=== PATIENT | female | born 1960 | race Caucasian/White ===

== ENCOUNTER 2019-03-29 15:09 | Inpatient (IN) | payer OTHER ==
[2019-03-29] MEDS ORDERED: Furosemide 40 MG/4 ML VIAL ONE (15:21)
[2019-03-29] MEDS ORDERED: Diltiazem HCl 125 MG, Admixture Fee 1 EACH in Sodium Chloride 0.9% 100 ML IVPB SCH (17:15)
[2019-03-29] MEDS ORDERED: Acetaminophen 650 MG Suppository PR PRN (17:26)
[2019-03-29] MEDS ORDERED: Acetaminophen 325 MG TAB PO PRN (17:26)
[2019-03-29 18:34] VITALS: BMI 40.0
[2019-03-29] MEDS: Nicotine 14 MG PATCH TD SCH (18:50)
[2019-03-29 19:26] LABS: Troponin I 0.031 ng/mL (< 0.028)
[2019-03-29] MEDS ORDERED: Diltiazem 125 MG in Sodium Chloride 0.9% 100 ML IVPB SCH (19:30)
[2019-03-29] MEDS ORDERED: Potassium Chloride 20 MEQ TAB PO SCH (19:45)
--- NOTE | 2019-03-29 20:10 | HP ---
PRIMARY CARE PROVIDER: Dr. Christopher Posey. CHIEF COMPLAINT: Shortness of breath. HISTORY OF PRESENT ILLNESS: Ms. Sherman is a pleasant 59-year-old lady, who was seen at [facility] on March 29, 2019, following transfer from emergency room at [place]. She reports that she has had on and off shortness of breath over the last few months. It has been worse over the last 2 weeks. She has been unable to sleep for the last two or three nights. She reports orthopnea and paroxysmal nocturnal dyspnea. She also reports leg swelling. She reports that she initially received treatment for COPD. Recently, it was found that she had an elevated BNP. She was therefore started on furosemide, but she has not taken many doses of furosemide. She denies any chest pain. She denies any palpitations. She reports that she knows her pulse rate is high because she can feel throbbing in her ears. She presented to the emergency room because of ongoing symptoms of shortness of breath. REVIEW OF SYSTEMS: All systems were reviewed and found to be negative. PAST MEDICAL HISTORY: Gastroesophageal reflux disease, hypertension, osteoarthritis, congestive heart failure, COPD, asthma, coronary artery disease. PAST SURGICAL HISTORY: Coronary artery bypass graft x3, left femoral surgery. PSYCHIATRIC HISTORY: Depression. SOCIAL HISTORY: She drinks one erika during the week days. She smokes 3 to 4 cigarettes a day. She lives alone. She does not use a walker or cane. She denies any recreational drug use. FAMILY HISTORY: No family history of premature coronary artery disease. ALLERGIES: NO KNOWN DRUG ALLERGIES. CURRENT MEDICATIONS: 1. Aspirin 81 mg daily. 2. Celebrex 50 mg daily. 3. Furosemide 20 mg daily. 4. Lotrel 5/40 mg daily. 5. Prevacid 15 mg daily. 6. Toprol-XL 50 mg daily. 7. Venlafaxine 150 mg daily. 8. Symbicort one puff b.i.d. PHYSICAL EXAMINATION: GENERAL: Ms. Sherman is awake and alert, not in acute distress. VITAL SIGNS: Blood pressure is 153/108, pulse 92, respiratory rate 20, and oxygen saturation 96% on 2 L of oxygen. She is afebrile. She is morbidly obese, with a BMI of 40.1. EYES: No scleral icterus, no conjunctival pallor. ENT: Moist mucosal membranes. No oropharyngeal erythema or exudates. NECK: Supple, nontender, trachea is midline. She has jugular venous distention. RESPIRATORY: Accessory muscles of breathing are mildly active. Chest wall movements are symmetric bilaterally. LUNG: Shows a few bibasilar crackles. CARDIOVASCULAR: S1 and S2 are heard, irregular. Peripheral pulses palpable. NEUROLOGIC: Cranial nerves 2 through 12 are intact. MUSCULOSKELETAL: Power is 5/5 in all 4 extremities. She has bilateral lower extremity edema. SKIN: No rashes or subcutaneous nodules. LYMPHATIC: No cervical lymphadenopathy. PSYCHIATRIC: Normal mood, normal affect. The patient is oriented to person, place, and time. LABORATORY DATA: Ms. Sherman's labs and investigations were reviewed. I reviewed her electrocardiogram, which shows atrial fibrillation with controlled ventricular response in the emergency room here. I also reviewed her chest x-ray, which does not show any pulmonary infiltrates. She has cardiomegaly. She has normal troponin I, leukocytosis with 12,100 white cells, of which 72% are neutrophils, normal hemoglobin, normal platelet count, normal sodium, decreased potassium of 3.3, elevated blood urea nitrogen of 26, normal creatinine of 0.82, normal calcium, elevated AST of 37, elevated ALT of 57, normal alkaline phosphatase, and elevated BNP of 618.2. Urinalysis is positive for blood and squamous epithelial cells. ASSESSMENT AND PLAN: Ms. Sherman is a pleasant 59-year-old lady, who was seen at [facility] on March 29, 2019. Her problem list includes: 1. Congestive heart failure exacerbation: Ms. Sherman is presenting with congestive heart failure exacerbation. She will be admitted to the hospital for further management. She will be diuresed with intravenous furosemide. 2D echocardiogram is being ordered to evaluate her cardiac function. 2. Hypokalemia: We will replace potassium and recheck. 3. Abnormal LFTs: Likely secondary to hepatic congestion from congestive heart failure. We will recheck LFTs. If LFTs worsen, the patient may need abdominal ultrasound. We will also check CK level, since she has isolated transaminitis. 4. Coronary artery disease: Appears to be stable. The patient does not have any chest pain. Troponin I is normal. 5. Tobacco abuse: The patient has been counseled regarding tobacco cessation. We will start nicotine replacement therapy. 6. Atrial fibrillation with rapid ventricular response: The patient had atrial fibrillation with rapid ventricular response in the emergency room at [place]. She received intravenous Cardizem with improvement of the ventricular response. She also received apixaban in the emergency room. I will continue her on apixaban here. We will start her on Cardizem drip to maintain her heart rate in the normal range. We will also continue her home medication of metoprolol. 7. Gastroesophageal reflux disease: This appears to be stable. 8. Hypertension: We will resume home medications, monitor vital signs and titrate antihypertensives as needed. 9. Chronic obstructive pulmonary disease: This appears to be stable. Many thanks for allowing me to participate in your patient's care. Please feel free to contact me with any questions or concerns. LEVEL OF RISK: High. LEVEL OF COMPLEXITY: High. Job ID: [id number]
[2019-03-29] MEDS: Apixaban 5 MG TAB PO SCH (22:21)
[2019-03-29 22:30] LABS: Troponin I 0.029 ng/mL (< 0.028)
[2019-03-30] MEDS ORDERED: Furosemide 40 MG/4 ML VIAL ONE (00:34)
[2019-03-30] MEDS ORDERED: Furosemide 40 MG/4 ML VIAL SLOW IVP SCH (01:00)
[2019-03-30 03:49] LABS: #Basophils 0.1 thou/uL (0.0-0.2); #Eosinphils 0.3 thou/uL (0.0-0.7); #Lymphocytes 2.1 thou/uL (1.20-3.40); #Monocytes 0.8 thou/uL (0.11-0.59); #Neutrophils 6.5 thou/uL (1.40-6.50); %Basophils 0.8 % (0.0-1.0); %Eosinophils 3.2 % (0.0-10.0); %Lymphocytes 21.5 % (21.0-51.0); %Monocytes 7.8 % (0.0-10.0); %Neutrophils 66.7 % (42.0-75.0); Hemoglobin 12.9 g/dL (12.0-16.0); Mean Corpuscular HGB CONC 32.5 g/dL (32.0-36.0); Mean Corpuscular Hemoglobin 30.1 pg (27.0-31.0); Mean Corpuscular Volume 92.6 fL (78.0-98.0); Mean Platelet Volume 8.7 fL (7.4-10.4); Platelet Count 164 thou/uL (130-400); RBC Distribution Width 13.2 % (11.5-14.5); Red Blood Cell (RBC) Count 4.27 mill/uL (4.20-5.40); White Blood Cell (WBC) Count 9.7 thou/uL (4.8-10.8)
[2019-03-30 04:13] LABS: Anion Gap 15 mmol/L (10-20); BUN (Urea Nitrogen) 21 mg/dL (9.8-20.1); CK (CPK) 57 U/L (29-168); Calc. Creatinine Clearance 118 mL/min (70-130); Calcium 8.9 mg/dL (7.8-10.44); Carbon Dioxide 37 mmol/L (23-31); Chloride 96 mmol/L (98-107); Estimated GFR-MDRD 70; Glucose 120 mg/dL (80-115); Potassium 4.3 mmol/L (3.5-5.1); Sodium 144 mmol/L (136-145)
[2019-03-30 04:15] LABS: ALT (SGPT) 54 U/L (8-55); AST (SGOT) 36 U/L (5-34); Albumin 4.1 g/dL (3.4-4.8); Alkaline Phosphatase 107 U/L (40-150); Bilirubin, Direct 0.3 mg/dL (0.1-0.3); Bilirubin, Total 0.7 mg/dL (0.2-1.2); Protein, Total 6.9 g/dL (6.0-8.3)
[2019-03-30] MEDS: Furosemide 40 MG/4 ML VIAL SLOW IVP SCH ×2 (05:57→15:17)
[2019-03-30 09:25] LABS: Hemoglobin 13.3 g/dL (12.0-16.0); Platelet Count 169 thou/uL (130-400)
--- NOTE | 2019-03-30 10:59 | PDOC.HOSPP ---
- Subjective Encounter Date: 03/30/19 Encounter Time: 07:00 Subjective: Pt seen for followup re: CHF exacerbation. Pt feels better. denies chest pain or shortness of breath at rest. - Objective Vital Signs & Weight: Vital Signs (12 hours) Temp Pulse Resp BP Pulse Ox 03/30/19 07:40 94 L 03/30/19 07:35 98.2 F 88 18 161/96 H 94 L 03/30/19 03:30 98.9 F 95 20 141/87 H 93 L 03/30/19 00:50 20 93 L 03/30/19 00:42 61 18 91 L 03/30/19 00:20 97.6 F 96 24 H 166/99 H 90 L Weight Weight 231 lb 3.2 oz I&O: 03/29/19 03/30/19 03/31/19 06:59 06:59 06:59 Intake Total 480 Output Total 1999 Balance -1520 Result Diagrams: 03/30/19 09:17 03/30/19 03:18 Additional Labs: Labs and MARs reviewed by me EKG Reviewed by me: Yes (Tele: aris argueta) Hospitalist ROS - Review of Systems Cardiovascular: denies: chest pain, palpitations, orthopnea, paroxysmal noc. dyspnea, edema, light headedness Gastrointestinal: denies: nausea, vomiting, abdominal pain, diarrhea, constipation, melena, hematochezia - Medication Medications: Active Medications Generic Name Dose Route Start Last Admin Trade Name Freq PRN Reason Stop Dose Admin Apixaban 5 mg 03/29/19 21:00 03/29/19 22:21 Eliquis PO Not Given BID ROSEMARY Furosemide 40 mg 03/30/19 06:00 03/30/19 05:57 Lasix SLOW IVP 40 mg 0600,1400 ROSEMARY Administration Nicotine 14 mg 03/29/19 18:00 03/29/19 18:50 Nicoderm Patch TD Not Given Q24HR ROSEMARY Sodium Chloride 10 ml 03/29/19 19:30 03/30/19 05:57 Flush - Normal Saline IVF 10 ml PRN PRN Administration Saline Flush - Exam General - other findings: Obese Eye: anicteric sclera ENT: moist mucosa Neck: supple, no thyromegaly Heart: no rubs, irregular Respiratory: CTAB Gastrointestinal: soft, non-tender Extremities: 2+ LE edema Musculoskeletal: normal strength Psychiatric: normal affect, normal behavior Hosp A/P (1) CHF exacerbation Code(s): I50.9 - HEART FAILURE, UNSPECIFIED Status: Acute (2) Atrial fibrillation with RVR Code(s): I48.91 - UNSPECIFIED ATRIAL FIBRILLATION Status: Acute (3) COPD (chronic obstructive pulmonary disease) Status: Chronic (4) CAD (coronary artery disease) Code(s): I25.10 - ATHSCL HEART DISEASE OF [place] CORONARY ARTERY W/O ANG PCTRS Status: Chronic (5) GERD (gastroesophageal reflux disease) Code(s): K21.9 - GASTRO-ESOPHAGEAL REFLUX DISEASE WITHOUT ESOPHAGITIS Status: Chronic (6) HTN (hypertension) Code(s): I10 - ESSENTIAL (PRIMARY) HYPERTENSION Status: Chronic - Plan continue IV furosemide. A. fib rate-controlled. GERD stable. BP still high, increase Toprol XL dose to 75 mg PO daily. Troponins indeterminate, likely due to NSTEMI II secondary to CHF exacerbation. Pt denies chest pain. Await 2D echo.
[2019-03-30] MEDS: Apixaban 5 MG TAB PO SCH ×2 (11:05→21:00)
[2019-03-30] MEDS: Aspirin 81 mg Enteric Coated Tablet PO SCH (11:05)
[2019-03-30] MEDS: Nicotine 14 MG PATCH TD SCH (15:16)
[2019-03-30] MEDS: Atorvastatin Calcium 40 MG TAB PO SCH (20:59)
[2019-03-30] MEDS: Calcium Carbonate 500 MG ChewTAB PO PRN (20:59)
--- NOTE | 2019-03-30 22:27 | CON ---
DATE OF CONSULTATION: 03/30/2019 INDICATION FOR CONSULTATION: A 59-year-old female with new onset atrial fibrillation, history of coronary artery disease status post bypass surgery approximately 20 years ago who has COPD and heavy tobacco abuse, who presented after several days of being short of breath. Most likely, she was in atrial fibrillation several days ago and she denies any chest pain. However, her cardiac enzymes are indeterminate, only slightly increased troponin I and she denies any chest pain. She mainly was complaining of shortness of breath. At this time, she was admitted to the hospital. She is feeling better after significant diuresis over 3 L of fluid and she has also had some nebulizer treatment and she is feeling better, but still remains short of breath and has tachycardia when she tries to move around, just a minimal amount, but she still appears to be in some degree of congestive heart failure. She did have an echocardiogram performed today, which shows an ejection fraction of about 40% to 45% with a restrictive-type filling pattern as well as moderate left atrial dilatation and aortic valve appeared to be normal. She does have moderate tricuspid valve regurgitation and trace mitral valve regurgitation. At this time, she is feeling better, but will need to adjust medications and hopefully control the heart rate. In the future, she will need to undergo further evaluation for the atrial fibrillation. She may be a candidate to undergo electrical cardioversion of the atrial fibrillation, but we do not know exactly when it started, so I would suggest she be on oral anticoagulation and rate control for at least 4-6 weeks prior to attempting cardioversion. The left atrium was moderately dilated, which may make it somewhat more difficult to cardiovert the patient electrically, she may need to undergo evaluation by the travel ot for possible ablation if we are unable to control the heart rate. PAST MEDICAL HISTORY: Please refer the notes dictated by the nurse practitioner. SOCIAL HISTORY: Please refer the notes dictated by the nurse practitioner. FAMILY HISTORY: Please refer the notes dictated by the nurse practitioner. REVIEW OF SYSTEMS: Please refer the notes dictated by the nurse practitioner. ALLERGIES: PLEASE REFER THE NOTES DICTATED BY THE NURSE PRACTITIONER. MEDICATIONS: Please refer the notes dictated by the nurse practitioner. PHYSICAL EXAMINATION: GENERAL: Reveals an elderly female, who is in no acute distress at this time. She is alert. She is oriented. VITAL SIGNS: Stable. She is afebrile. Heart rate is in the 90 to 100 range now, respiratory rate is 20, O2 saturation 94% on 3 L and blood pressure is 145/70. HEENT: Shows the head to be normocephalic and atraumatic. I had difficulty palpating a left carotid pulse and did not hear bruit there. She may need to undergo Doppler evaluation. CHEST: Decreased breath sounds throughout with some expiratory wheezing in the right lower base. CARDIOVASCULAR: She has an irregularly irregular rhythm. I did not hear any significant murmurs. There were no heaves or thrills noted. She has a well-healed midline surgical incision after median sternotomy. ABDOMEN: Shows morbid obesity with positive bowel sounds. EXTREMITIES: Show no significant clubbing or cyanosis. Pedal pulses are present. Motor decreased and there was no significant lower extremity edema. She has a well-healed surgical incision over the right lower extremity after saphenous vein graft retrieval. NEUROLOGICAL: She appears to be fully intact. SKIN: Warm and dry. PSYCHOSOCIAL: She appears to be stable. LABORATORY DATA: Shows a troponin I on admission of 0.025, increased up to 0.31 and then decreased back down to 0.029. Her MBs were negative. Her potassium was 4.3, creatinine was 0.83, and sodium was 144. Hemoglobin was 13.3 with hematocrit of 41.1 and WBC of 9.7. Her EKG shows an atrial fibrillation, but no acute ST-segment changes otherwise were noted. She did have some nonspecific changes, but otherwise remains within normal limits. At this time, I would agree with her present medication. I am trying to diurese the patient when we have her under better rate control. Most likely, she will need to be on diltiazem. Whether or not she will tolerate the beta blockers is unlikely. If we have trouble controlling the heart rate, we can also add digoxin as well as the diltiazem. She has been placed on Eliquis 5 mg b.i.d. and I would agree with that management. We would be more than happy to continue to follow the patient with you. IMPRESSION: 1. New onset atrial fibrillation, which exacerbated her congestive heart failure, but this will be treated by diuretics. 2. Diastolic dysfunction with restrictive type pattern, which means this is significant diastolic dysfunction. We will treat this by medical management. 3. Probable chronic obstructive pulmonary disease and continued tobacco abuse. She has been advised to stop smoking. She is on nebulizer treatments and may need to seek the consultation from a mobile nurse for further care of her lungs. 4. History of obesity. She will be advised also to lose weight. 5. History of known coronary disease. She is status post bypass surgery and this appears to be stable, but she has not had a stress test in several years and has not been recently followed up by Cardiology. Job ID: [id number]
[2019-03-31 05:25] LABS: #Basophils 0.1 thou/uL (0.0-0.2); #Eosinphils 0.2 thou/uL (0.0-0.7); #Lymphocytes 1.8 thou/uL (1.20-3.40); #Monocytes 0.8 thou/uL (0.11-0.59); #Neutrophils 5.5 thou/uL (1.40-6.50); %Basophils 0.7 % (0.0-1.0); %Eosinophils 2.8 % (0.0-10.0); %Lymphocytes 21.4 % (21.0-51.0); %Neutrophils 66.1 % (42.0-75.0); Hemoglobin 13.6 g/dL (12.0-16.0); Mean Corpuscular HGB CONC 32.5 g/dL (32.0-36.0); Mean Corpuscular Hemoglobin 30.1 pg (27.0-31.0); Mean Corpuscular Volume 92.6 fL (78.0-98.0); Mean Platelet Volume 8.8 fL (7.4-10.4); Platelet Count 170 thou/uL (130-400); Red Blood Cell (RBC) Count 4.51 mill/uL (4.20-5.40); White Blood Cell (WBC) Count 8.3 thou/uL (4.8-10.8)
[2019-03-31 05:37] LABS: BUN (Urea Nitrogen) 18 mg/dL (9.8-20.1); Calc. Creatinine Clearance 130 mL/min (70-130); Calcium 9.3 mg/dL (7.8-10.44); Estimated GFR-MDRD 79; Glucose 123 mg/dL (80-115)
[2019-03-31] MEDS: Furosemide 40 MG/4 ML VIAL SLOW IVP SCH (05:44)
[2019-03-31 05:46] LABS: Anion Gap 17 mmol/L (10-20); Carbon Dioxide 35 mmol/L (23-31); Chloride 94 mmol/L (98-107); Potassium 3.8 mmol/L (3.5-5.1); Sodium 142 mmol/L (136-145)
--- NOTE | 2019-03-31 08:33 | CON ---
DATE OF CONSULTATION: PRIMARY CARE DOCTOR: Dr. Christopher Posey. PRIMARY RELOCATION ASSOCIATE: Dr. Terrazas at [facility]. The patient's primary professional bondsman here in the [place] is going to be Dr. Alexandra Jane. REASON FOR CARDIOLOGY CONSULT: Congestive heart failure. HISTORY OF PRESENT ILLNESS: Ms. Sherman is a 59-year-old female with a significant history of coronary artery disease with status post CABG x3 in February 2000. Hypertension, COPD, congestive heart failure, and current smoker. The patient has had intermittent shortness of breath over the last few months. However, her shortness of breath is getting worse in the last few weeks. Last week, she saw her primary care doctor and she was treated for her COPD. She was also prescribed Lasix unknown dosage two times a day for 3 days for worsening of swelling in bilateral lower extremities. Her symptoms include swelling and shortness of breath, slightly better with Lasix with breathing treatment. However, last , her symptoms getting worse again and she decided to present to the Emergency Department for further evaluation and treatment. She was found to have atrial fibrillation with rapid ventricular response and she was found to have a BNP of 618 on March 29. She denies any chest pain, heaviness, tightness, dizziness, lightheadedness, or any other cardiac complaints. She had a history of CABG x3 in 1999. She has not seen a professional bondsman more than two years. She is supposed to see a doctor at the [facility]. The initial followup is going to be in May 2019. She continues to smoke half pack a day. PAST MEDICAL HISTORY: 1. Coronary artery disease. 2. Hypertension. 3. COPD. 4. Asthma. 5. Congestive heart failure. 6. GERD. 7. Osteoarthritis. 8. Borderline diabetes. PAST SURGICAL HISTORY: Coronary artery bypass graft x3 in February 2000, left femoral fracture with left femoral surgery, and two C-sections. PSYCHIATRIC HISTORY: There is depression. FAMILY HISTORY: Significant family history in maternal and paternal side are hypertension and diabetes. The patient's grandmother in the maternal side and her mother had history of heart surgery and congestive heart failure. The patient's mother due to complication of congestive heart failure at the age of 56. She also had TIA. The patient's brother has history of CABG at the age of 43. SOCIAL HISTORY: The patient reports she lives alone. She has 3 children, who live well. 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 She smokes half a pack a day. She drink big erika 3 to 4 times a week. She drinks 32 ounce of water a day. She drinks 2 cups of coffee a day. She walks around the store when she is working, but she does not do the regular exercise. She states she watch salt intake; however, she eat at the [employer] restaurant and she cook with the processed food and the canned food at home. ALLERGIES: SHE HAS NO KNOWN DRUG ALLERGIES. MEDICATIONS: 1. Venlafaxine 150 mg once a day. 2. Nexium 20 mg once a day. 3. Atorvastatin 80 mg once a day. 4. Colace one tablet once a day as needed. 5. Aspirin 81 mg once a day. 6. Norvasc 10 mg once a day. 7. Metoprolol succinate 100 mg once a day. REVIEW OF SYSTEMS: A 12-point review of systems are negative unless otherwise mentioned in the HPI. PHYSICAL EXAMINATION: VITAL SIGNS: Blood pressure 137/70 and temperature 98.2. When she is resting, her heart rate is 80 to 90, but with mild exertion, the patient's heart rate going up to 110s to 120s. O2 saturation 94% with 3 L nasal cannula. GENERAL: The patient is alert and oriented x4, not in acute distress. HEENT: Normocephalic and atraumatic. Dry eyes. Extraocular muscle movement intact. She wears glasses. ENT and mouth, oral and nasal mucosa moist without lesion. NECK: Supple. Normal range of motion. No JVD. RESPIRATORY: Clear to auscultate, but very diminished at the bases. No wheezing, rales, or rhonchi noted. CARDIOVASCULAR: Irregularly irregular. No S3 or S4. No significant murmur, heaves, or thrill noted. 2+ pulses in the bilateral upper and lower extremities. No edema in the lower extremities at this moment. However, when she was admitted in the hospital two days ago, her leg was swelling. They were bit bad. ABDOMEN: Soft and nontender. No mass palpated. Bowel sounds are present. MUSCULOSKELETAL: The patient is able to move all extremities. SKIN: Warm and dry. No lesion, rash, or erythema noted. NEUROLOGIC: The patient is alert and oriented x4, nonfocal. PSYCHIATRIC: The patient's mood is appropriate. LABORATORY DATA: A 12-lead EKG at the ER showed atrial fibrillation with heart rate [address]-segment changes or T-wave inversion. Labs; WBC 9.7, hemoglobin 13.3, hematocrit 41.1, and platelet 169. Sodium 144, potassium 4.3, BUN 21, creatinine 0.83, glucose 120, calcium 8.9, AST 36, and ALT 54. Creatine kinase is 57, troponin 0.029, and BNP 618. UA is negative. The patient's chest x-ray was done at the [place] showing cardiomegaly without evidence for acute cardiopulmonary process. ASSESSMENT AND PLAN: 1. Acute on chronic heart failure. She had an echocardiogram done today and the results are pending at this moment. The patient is on metoprolol succinate 50 mg once a day at this moment and Lasix 40 mg IV push twice a day. The patient's kidney function is stable at this moment and vital signs are stable. We like to start lisinopril 10 mg twice a day from today. 2. New onset of atrial fibrillation with rapid ventricular response. The patient's heart rate is stable at this moment with metoprolol 50 mg succinate once a day. She is on Eliquis 5 mg twice a day. She denies any bruise or hematuria or hematochezia at this moment. Since the unknown onset, she should be on the Eliquis for at least six weeks before she has any further atrial fibrillation treatment such as cardioversion. 3. Hypertension. The patient's blood pressure is stable at this moment with current medication. 4. Coronary artery disease with history of coronary artery bypass grafting x3 in 1999. The patient is on a beta federico and aspirin and she is supposed to be on Lipitor 80 mg once a day. 5. Chronic obstructive pulmonary disease. The patient's condition stable at this moment with 3 L nasal cannula. She may need some breathing treatment since she is having occasional dry cough. Thank you very much for Cardiology Service to participate in the care of this patient. We will follow along the care team and make further recommendation as appropriate. Job ID: [id number]
[2019-03-31] MEDS: Apixaban 5 MG TAB PO SCH ×2 (09:57→20:41)
[2019-03-31] MEDS: Aspirin 81 mg Enteric Coated Tablet PO SCH (09:57)
--- NOTE | 2019-03-31 12:26 | PDOC.CPN ---
- Subjective Date: 03/31/19 Time: 12:45 Interval history: The pt seen and examined. No overnight events. No cardiac complaints. - Objective Allergies/Adverse Reactions: Allergies Allergy/AdvReac Type Severity Reaction Status Date / Time No Known Drug Allergies Allergy Verified 03/29/19 14:09 Visit Medications: Current Medications Acetaminophen (Tylenol) 650 mg PO Q4H PRN PRN Reason: Headache/Fever/Mild Pain (1-3) Acetaminophen (Tylenol) 650 mg WA Q4H PRN PRN Reason: Headache/Fever/Mild Pain (1-3) Albuterol/Ipratropium (Duoneb) 3 ml NEB Q4H PRN PRN Reason: Dyspnea Apixaban (Eliquis) 5 mg PO BID [facility] Last Admin: 03/31/19 09:57 Dose: 5 mg Aspirin (Ecotrin) 81 mg PO DAILY [facility] Last Admin: 03/31/19 09:57 Dose: 81 mg Atorvastatin Calcium (Lipitor) 80 mg PO HS [facility] Last Admin: 03/30/19 20:59 Dose: 80 mg Calcium Carbonate (Tums) 1,000 mg PO Q4H PRN PRN Reason: Heartburn or Indigestion Last Admin: 03/30/19 20:59 Dose: 1,000 mg Diltiazem HCl (Cardizem) 30 mg PO QID [facility] Diltiazem HCl (Cardizem) 30 mg PO NOW [facility] Stop: 03/31/19 13:00 Last Admin: 03/31/19 11:20 Dose: 30 mg Furosemide (Lasix) 40 mg SLOW IVP 0600,1400 [facility] Last Admin: 03/31/19 05:44 Dose: 40 mg Nicotine (Nicoderm Patch) 14 mg TD Q24HR [facility] Last Admin: 03/30/19 15:16 Dose: Not Given Sodium Chloride (Flush - Normal Saline) 10 ml IVF PRN PRN PRN Reason: Saline Flush Last Admin: 03/31/19 05:45 Dose: 10 ml Vital Signs & Weight: Vital Signs Temp Pulse Resp BP BP Pulse Ox 03/31/19 09:57 96 03/31/19 09:35 97.6 F 98 18 138/80 96 03/31/19 03:30 99.5 F 99 16 152/93 H 99 Weight 227 lb 9.6 oz - Physical Exam General: alert & oriented x3 HEENT: mucus membranes moist Cardiac: irregularly regular Lungs: decreased breath sounds Neuro: cranial nerve 2-12 intact Skin: clear Musculoskeletal: normal range of motion - Labs Result Diagrams: 03/31/19 04:49 03/31/19 04:49 Troponin/CKMB Troponin I 0.029 ng/mL (< 0.028) H 03/29/19 21:55 - Telemetry Supraventricular conduction: atrial fibrillation (HR 100-120s) - Assessment/Plan Assessment/Plan: 1. New onset Afib with RVR - will start digoxin with loading dose (digoxin 0.5mg IV push x1 now; within 6 hours, 0.25mg IV push q 6 hrs x2; then change to PO 0.125mg PO daily); Not on BBlocker due to hx of COPD/Asthma 2. 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 CAD with hx of CABG x3 in 02/2000 - stable; On ASA and Lipitor; will start SILVERIO from today; Not on BBlocker due to hx of COPD/Asthma 4. HTN - stable 5. COPD/Asthama 6. borderline DM MAR reviewed * Echo on 03/30/2019 with EF 40-45%, grade III dd, mild-mod ERA, trace MR, mod TR, mild WA, Pt. seen and eval. by me. 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 Chest clear. Irreg/ irreg. Changing from IV to po dilt. She will need rate control and OAC, on eliquis. In the future she will need a stress test to r/o CAD as a possible etiology of the atrial fibrillation. She is s/p CABG and may have progression of disease. Also concern for the decreased EF. She must stop smoking. Increase dilt. if nec. to control rate. Continue digoxin. [email or web address]
[2019-03-31] MEDS ORDERED: Digoxin 0.5 MG/2 ML AMP SLOW IVP SCH (13:00)
[2019-03-31] MEDS: Furosemide 20 MG TAB PO SCH (13:20)
[2019-03-31] MEDS: Nicotine 14 MG PATCH TD SCH (13:21)
[2019-03-31] MEDS ORDERED: Lisinopril 10 MG TAB PO SCH (13:30)
--- NOTE | 2019-03-31 14:12 | PDOC.HOSPP ---
- Subjective Encounter Date: 03/31/19 Encounter Time: 07:20 Subjective: Pt seen for followup re: CHF exacerbation. feels better. - Objective Vital Signs & Weight: Vital Signs (12 hours) Temp Pulse Resp BP BP BP Pulse Ox 03/31/19 13:20 98.3 F 89 14 133/79 135/77 95 03/31/19 09:57 96 03/31/19 09:35 97.6 F 98 18 138/80 96 03/31/19 03:30 99.5 F 99 16 152/93 H 99 Weight Weight 227 lb 9.6 oz I&O: 03/30/19 03/31/19 04/01/19 06:59 06:59 06:59 Intake Total 480 1800 Output Total 1999 2824 069 [facility]9700 -4050 -850 Result Diagrams: 03/31/19 04:49 03/31/19 04:49 Additional Labs: Labs and MARs reviewed by me EKG Reviewed by me: Yes (Tele: aris argueta) Hospitalist ROS - Review of Systems Respiratory: reports: SOB with excertion Cardiovascular: denies: chest pain, palpitations, orthopnea, paroxysmal noc. dyspnea, edema, light headedness Gastrointestinal: denies: nausea, vomiting, abdominal pain, diarrhea, constipation, melena, hematochezia - Medication Medications: Active Medications Generic Name Dose Route Start Last Admin Trade Name Freq PRN Reason Stop Dose Admin Apixaban 5 mg 03/29/19 21:00 03/31/19 09:57 Eliquis PO 5 mg BID [facility] Administration Aspirin 81 mg 03/30/19 09:00 03/31/19 09:57 Ecotrin PO 81 mg DAILY [facility] Administration Atorvastatin Calcium 80 mg 03/30/19 21:00 03/30/19 20:59 Lipitor PO 80 mg HS [facility] Administration Calcium Carbonate 1,000 mg 03/29/19 17:26 03/30/19 20:59 Tums PO 1,000 mg Q4H PRN Administration Heartburn or Indigestion Diltiazem HCl 30 mg 03/31/19 13:00 03/31/19 13:20 Cardizem PO 30 mg QID [facility] Administration Furosemide 40 mg 03/31/19 14:00 03/31/19 13:20 Lasix PO 40 mg 0900,1400 [facility] Administration Lisinopril 10 mg 03/31/19 13:30 03/31/19 13:20 Zestril PO 03/31/19 15:30 10 mg 1330 [facility] Administration Nicotine 14 mg 03/29/19 18:00 03/31/19 13:21 Nicoderm Patch TD Not Given Q24HR [facility] Sodium Chloride 10 ml 03/29/19 19:30 03/31/19 05:45 Flush - Normal Saline IVF 10 ml PRN PRN Administration Saline Flush - Exam General - other findings: Obese Eye: anicteric sclera ENT: moist mucosa Neck: supple Heart: no rubs, irregular Respiratory: CTAB Gastrointestinal: soft, non-tender Extremities: 1+ LE edema Musculoskeletal: normal tone, normal strength Psychiatric: normal affect, normal behavior Hosp A/P (1) CHF exacerbation Code(s): I50.9 - HEART FAILURE, UNSPECIFIED Status: Acute (2) Atrial fibrillation with RVR Code(s): I48.91 - UNSPECIFIED ATRIAL FIBRILLATION Status: Acute (3) COPD (chronic obstructive pulmonary disease) Status: Chronic (4) CAD (coronary artery disease) Code(s): I25.10 - ATHSCL HEART DISEASE OF [place] CORONARY ARTERY W/O ANG PCTRS Status: Chronic (5) GERD (gastroesophageal reflux disease) Code(s): K21.9 - GASTRO-ESOPHAGEAL REFLUX DISEASE WITHOUT ESOPHAGITIS Status: Chronic (6) HTN (hypertension) Code(s): I10 - ESSENTIAL (PRIMARY) HYPERTENSION Status: Chronic - Plan out of bed/ambulate Improving with IV furosemide. A. fib with rvr, pt being started on CCB and digoxin. GERD stable. Toprol discontinued due to hx of COPD. HTN controlled.
[2019-03-31] MEDS: Calcium Carbonate 500 MG ChewTAB PO PRN (17:34)
[2019-03-31] MEDS: Digoxin 0.5 MG/2 ML AMP SLOW IVP SCH (18:34)
[2019-03-31] MEDS: Atorvastatin Calcium 40 MG TAB PO SCH (20:41)
[2019-04-01] MEDS: Digoxin 0.5 MG/2 ML AMP SLOW IVP SCH (00:37)
[2019-04-01 05:11] LABS: #Basophils 0.1 thou/uL (0.0-0.2); #Eosinphils 0.2 thou/uL (0.0-0.7); #Lymphocytes 1.6 thou/uL (1.20-3.40); #Monocytes 0.8 thou/uL (0.11-0.59); %Basophils 0.5 % (0.0-1.0); %Eosinophils 1.9 % (0.0-10.0); %Lymphocytes 14.8 % (21.0-51.0); %Monocytes 7.4 % (0.0-10.0); %Neutrophils 75.5 % (42.0-75.0); Hemoglobin 15.4 g/dL (12.0-16.0); Mean Corpuscular Volume 93.6 fL (78.0-98.0); Platelet Count 183 thou/uL (130-400); RBC Distribution Width 13.1 % (11.5-14.5); Red Blood Cell (RBC) Count 5.13 mill/uL (4.20-5.40); White Blood Cell (WBC) Count 10.6 thou/uL (4.8-10.8)
[2019-04-01 05:45] LABS: Anion Gap 16 mmol/L (10-20); BUN (Urea Nitrogen) 16 mg/dL (9.8-20.1); Calc. Creatinine Clearance 130 mL/min (70-130); Calcium 9.9 mg/dL (7.8-10.44); Carbon Dioxide 31 mmol/L (23-31); Chloride 97 mmol/L (98-107); Estimated GFR-MDRD 80; Glucose 122 mg/dL (80-115); Potassium 4.2 mmol/L (3.5-5.1); Sodium 140 mmol/L (136-145)
[2019-04-01] MEDS: Aspirin 81 mg Enteric Coated Tablet PO SCH (09:03)
[2019-04-01] MEDS: Lisinopril 10 MG TAB PO SCH (09:03)
[2019-04-01] MEDS: Apixaban 5 MG TAB PO SCH ×2 (09:03→21:03)
[2019-04-01] MEDS: Furosemide 20 MG TAB PO SCH ×2 (09:04→13:55)
--- NOTE | 2019-04-01 10:38 | PDOC.CPN ---
- Subjective Date: 04/01/19 Time: 10:38 Interval history: The pt seen and examined. No overnight events. No cardiac complaints. - Objective Allergies/Adverse Reactions: Allergies Allergy/AdvReac Type Severity Reaction Status Date / Time No Known Drug Allergies Allergy Verified 03/29/19 14:09 Visit Medications: Current Medications Acetaminophen (Tylenol) 650 mg PO Q4H PRN PRN Reason: Headache/Fever/Mild Pain (1-3) Last Admin: 04/01/19 09:03 Dose: 650 mg Acetaminophen (Tylenol) 650 mg [place] Q4H PRN PRN Reason: Headache/Fever/Mild Pain (1-3) Albuterol/Ipratropium (Duoneb) 3 ml NEB Q4H PRN PRN Reason: Dyspnea Apixaban (Eliquis) 5 mg PO BID [facility] Last Admin: 04/01/19 09:03 Dose: 5 mg Aspirin (Ecotrin) 81 mg PO DAILY [facility] Last Admin: 04/01/19 09:03 Dose: 81 mg Atorvastatin Calcium (Lipitor) 80 mg PO HS [facility] Last Admin: 03/31/19 20:41 Dose: 80 mg Calcium Carbonate (Tums) 1,000 mg PO Q4H PRN PRN Reason: Heartburn or Indigestion Last Admin: 03/31/19 17:34 Dose: 1,000 mg Digoxin (Lanoxin) 0.125 mg PO DAILY [facility] Diltiazem HCl (Cardizem) 30 mg PO QID [facility] Last Admin: 04/01/19 09:03 Dose: 30 mg Furosemide (Lasix) 40 mg PO 0900,1400 [facility] Last Admin: 04/01/19 09:04 Dose: 40 mg Lisinopril (Zestril) 10 mg PO DAILY [facility] Last Admin: 04/01/19 09:03 Dose: 10 mg Nicotine (Nicoderm Patch) 14 mg TD Q24HR [facility] Last Admin: 03/31/19 13:21 Dose: Not Given Sodium Chloride (Flush - Normal Saline) 10 ml IVF PRN PRN PRN Reason: Saline Flush Last Admin: 04/01/19 09:07 Dose: 10 ml Vital Signs & Weight: Vital Signs Temp Pulse Resp BP BP BP Pulse Ox 04/01/19 09:03 133/79 04/01/19 08:00 99.1 F 124 H 16 117/71 97 04/01/19 04:00 97.8 F 92 18 164/77 H 96 04/01/19 00:37 85 03/31/19 23:10 85 121/64 Weight 226 lb 8 oz - Physical Exam General: alert & oriented x3 Cardiac: irregularly regular Lungs: decreased breath sounds Neuro: cranial nerve 2-12 intact Skin: clear Musculoskeletal: normal range of motion - Labs Result Diagrams: 04/01/19 04:30 04/01/19 04:30 Troponin/CKMB Troponin I 0.029 ng/mL (< 0.028) H 03/29/19 21:55 - Telemetry Supraventricular conduction: atrial fibrillation (HR 90-130s) - Assessment/Plan Assessment/Plan: 1. New onset Afib with RVR - will increase digoxin from 0.125mg to 0.25mg qd; Not on BBlocker due to hx of COPD/Asthma; In the future she will need a stress test to r/o CAD as a possible etiology of the atrial fibrillation. 2. 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 CAD with hx of CABG x3 in 02/2000 - stable; On ASA, SILVERIO and Lipitor; Not on BBlocker due to hx of COPD/Asthma 4. HTN - stable 5. COPD/Asthama 6. borderline DM 7. Current smoker - strongly recommend smoking cessation to the pt MAR reviewed * Echo on 03/30/2019 with EF 40-45%, grade III dd, mild-mod ERA, trace MR, mod TR, mild [place], Pt. seen and eval. by me. I agree with the A/P by the CARE MANAGEMENT ASSOCIATE. She is still not rate controlled with the A-fib. I will incrreaase the dilt. If this does not control the HR I will request an EP consult. Chest: late exp. wheeze. irreg/irreg. tachycardia.
[2019-04-01] MEDS ORDERED: Venlafaxine HCl XR 150 MG CAP PO SCH (11:15)
[2019-04-01] MEDS ORDERED: Digoxin 0.125 MG TAB PO SCH (11:30)
--- NOTE | 2019-04-01 13:49 | PDOC.HOSPP ---
- Subjective Encounter Date: 04/01/19 Encounter Time: 07:40 Subjective: Pt seen for followup re: CHF exacerbation. Feels better. - Objective Vital Signs & Weight: Vital Signs (12 hours) Temp Pulse Pulse Pulse Resp BP BP 04/01/19 12:02 115 H 04/01/19 11:57 97.7 F 119 H 18 04/01/19 10:26 123 H 128 H 106/67 04/01/19 09:03 133/79 04/01/19 08:00 99.1 F 124 H 16 04/01/19 04:00 97.8 F 92 18 BP BP Pulse Ox Pulse Ox Pulse Ox 04/01/19 12:02 04/01/19 11:57 134/79 93 L 04/01/19 10:26 100/69 91 L 94 L 04/01/19 09:03 04/01/19 08:00 117/71 97 04/01/19 04:00 164/77 H 96 Weight Weight 226 lb 8 oz I&O: 03/31/19 04/01/19 04/02/19 06:59 06:59 06:59 Intake Total 1800 600 Output Total 5850 2275 Balance -6131 -4186 Result Diagrams: 04/01/19 04:30 04/01/19 04:30 Additional Labs: Labs and MARs reviewed by me EKG Reviewed by me: Yes (Tele: aris argueta) Hospitalist ROS - Review of Systems Respiratory: reports: SOB with excertion. denies: cough, shortness of breath, pleuritic pain, wheezing Cardiovascular: denies: chest pain, palpitations, orthopnea, paroxysmal noc. dyspnea, edema, light headedness - Medication Medications: Active Medications Generic Name Dose Route Start Last Admin Trade Name Freq PRN Reason Stop Dose Admin Acetaminophen 650 mg 03/29/19 17:26 04/01/19 09:03 Tylenol PO 650 mg Q4H PRN Administration Headache/Fever/Mild Pain (1-3) Apixaban 5 mg 03/29/19 21:00 04/01/19 09:03 Eliquis PO 5 mg BID [facility] Administration Aspirin 81 mg 03/30/19 09:00 04/01/19 09:03 Ecotrin PO 81 mg DAILY [facility] Administration Atorvastatin Calcium 80 mg 03/30/19 21:00 03/31/19 20:41 Lipitor PO 80 mg HS [facility] Administration Calcium Carbonate 1,000 mg 03/29/19 17:26 03/31/19 17:34 Tums PO 1,000 mg Q4H PRN Administration Heartburn or Indigestion Furosemide 40 mg 03/31/19 14:00 04/01/19 09:04 Lasix PO 40 mg 0900,1400 [facility] Administration Lisinopril 10 mg 04/01/19 09:00 04/01/19 09:03 Zestril PO 10 mg DAILY [facility] Administration Nicotine 14 mg 03/29/19 18:00 03/31/19 13:21 Nicoderm Patch TD Not Given Q24HR [facility] Sodium Chloride 10 ml 03/29/19 19:30 04/01/19 09:07 Flush - Normal Saline IVF 10 ml PRN PRN Administration Saline Flush - Exam General Appearance: NAD Eye: anicteric sclera ENT: no oropharyngeal lesions, moist mucosa Neck: no thyromegaly, no lymphadenopathy Heart: no rubs, irregular Respiratory: CTAB Gastrointestinal: soft, non-tender Skin: no rashes Musculoskeletal: normal strength Psychiatric: normal affect, normal behavior Hosp A/P (1) Combined systolic and diastolic congestive heart failure, NYHA class 3 Code(s): I50.40 - UNSP COMBINED SYSTOLIC AND DIASTOLIC (CONGESTIVE) HRT FAIL Status: Acute (2) Atrial fibrillation with RVR Code(s): I48.91 - UNSPECIFIED ATRIAL FIBRILLATION Status: Acute (3) COPD (chronic obstructive pulmonary disease) Status: Chronic (4) CAD (coronary artery disease) Code(s): I25.10 - ATHSCL HEART DISEASE OF [place] CORONARY ARTERY W/O ANG PCTRS Status: Chronic (5) GERD (gastroesophageal reflux disease) Code(s): K21.9 - GASTRO-ESOPHAGEAL REFLUX DISEASE WITHOUT ESOPHAGITIS Status: Chronic (6) HTN (hypertension) Code(s): I10 - ESSENTIAL (PRIMARY) HYPERTENSION Status: Chronic - Plan out of bed/ambulate Improving with IV furosemide. Pt continues to be in A. fib with rvr, digoxin and CCB doses increased. GERD stable. HTN controlled.
[2019-04-01] MEDS: Nicotine 14 MG PATCH TD SCH (16:27)
[2019-04-01] MEDS: Atorvastatin Calcium 40 MG TAB PO SCH (21:03)
[2019-04-02] MEDS ORDERED: Digoxin 0.125 MG TAB PO SCH (09:00)
[2019-04-02] MEDS: Digoxin 0.25 MG TAB PO SCH (09:08)
[2019-04-02] MEDS: Apixaban 5 MG TAB PO SCH ×2 (09:08→19:48)
[2019-04-02] MEDS: Aspirin 81 mg Enteric Coated Tablet PO SCH (09:08)
[2019-04-02] MEDS: Venlafaxine HCl XR 150 MG CAP PO SCH (09:08)
[2019-04-02] MEDS: Furosemide 20 MG TAB PO SCH ×2 (09:08→14:37)
[2019-04-02] MEDS: Lisinopril 10 MG TAB PO SCH (09:08)
[2019-04-02 09:43] LABS: Hemoglobin 13.9 g/dL (12.0-16.0); Platelet Count 187 thou/uL (130-400)
--- NOTE | 2019-04-02 10:05 | PDOC.CPN ---
- Subjective Date: 04/02/19 Time: 10:04 Interval history: The pt seen and examined. No overnight events. No cardiac complaints. Tachycardia with mild exertion. She can be on supine position without difficulties. - Objective Allergies/Adverse Reactions: Allergies Allergy/AdvReac Type Severity Reaction Status Date / Time No Known Drug Allergies Allergy Verified 03/29/19 14:09 Visit Medications: Current Medications Acetaminophen (Tylenol) 650 mg PO Q4H PRN PRN Reason: Headache/Fever/Mild Pain (1-3) Last Admin: 04/01/19 09:03 Dose: 650 mg Acetaminophen (Tylenol) 650 mg [place] Q4H PRN PRN Reason: Headache/Fever/Mild Pain (1-3) Albuterol/Ipratropium (Duoneb) 3 ml NEB Q4H PRN PRN Reason: Dyspnea Apixaban (Eliquis) 5 mg PO BID [facility] Last Admin: 04/02/19 09:08 Dose: 5 mg Aspirin (Ecotrin) 81 mg PO DAILY [facility] Last Admin: 04/02/19 09:08 Dose: 81 mg Atorvastatin Calcium (Lipitor) 80 mg PO HS [facility] Last Admin: 04/01/19 21:03 Dose: 80 mg Calcium Carbonate (Tums) 1,000 mg PO Q4H PRN PRN Reason: Heartburn or Indigestion Last Admin: 03/31/19 17:34 Dose: 1,000 mg Digoxin (Lanoxin) 0.25 mg PO DAILY [facility] Last Admin: 04/02/19 09:08 Dose: 0.25 mg Diltiazem HCl (Cardizem) 60 mg PO QID [facility] Last Admin: 04/02/19 09:08 Dose: 60 mg Furosemide (Lasix) 40 mg PO 0900,1400 [facility] Last Admin: 04/02/19 09:08 Dose: 40 mg Lisinopril (Zestril) 10 mg PO DAILY [facility] Last Admin: 04/02/19 09:08 Dose: 10 mg Nicotine (Nicoderm Patch) 14 mg TD Q24HR [facility] Last Admin: 04/01/19 16:27 Dose: Not Given Sodium Chloride (Flush - Normal Saline) 10 ml IVF PRN PRN PRN Reason: Saline Flush Last Admin: 04/01/19 09:07 Dose: 10 ml Venlafaxine HCl (Effexor Xr) 150 mg PO DAILY [facility] Last Admin: 04/02/19 09:08 Dose: 150 mg Vital Signs & Weight: Vital Signs Temp Pulse Resp BP Pulse Ox 04/02/19 07:50 97.9 F 93 18 137/86 92 L 04/02/19 03:18 99.4 F 90 18 150/67 H 93 L Weight 226 lb - Physical Exam General: alert & oriented x3 Neck: supple neck Cardiac: irregularly regular Lungs: decreased breath sounds Neuro: cranial nerve 2-12 intact Abdomen: unremarkable Skin: clear Musculoskeletal: normal range of motion - Labs Result Diagrams: 04/02/19 09:33 04/02/19 05:10 Troponin/CKMB Troponin I 0.029 ng/mL (< 0.028) H 03/29/19 21:55 - Telemetry Supraventricular conduction: atrial fibrillation - Assessment/Plan Assessment/Plan: 1. New onset Afib with RVR - On Digoxin 0.25mg qd and Diltiazem 60mg QID; will start low dose of coreg from today; Stress test tomorrow to r/o CAD as a possible etiology of the atrial fibrillation. May request EP consult for uncontrolled HR 2. 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 CAD with hx of CABG x3 in 02/2000 - stable; On ASA, SILVERIO and Lipitor; will start low dose of coreg from today; 4. HTN - stable 5. COPD/Asthama 6. borderline DM 7. Current smoker - strongly recommend smoking cessation to the pt MAR reviewed * Echo on 03/30/2019 with EF 40-45%, grade III dd, mild-mod ERA, trace MR, mod TR, mild [place], Pt. seen and eval. by me. I agree with the A/P by the ELEMENTARY ART TEACHER. Will add low dose betablockers and see if she can tolerate. HR still elevated.
--- NOTE | 2019-04-02 16:14 | PDOC.HOSPP ---
- Subjective Encounter Date: 04/02/19 Encounter Time: 07:20 Subjective: Pt seen for followup re: aris argueta with RVR. Denies chest pain. Feels heart racing. No light-headedness. - Objective Vital Signs & Weight: Vital Signs (12 hours) Temp Pulse Resp BP BP Pulse Ox 04/02/19 11:49 98.1 F 119 H 22 H 141/77 H 93 L 04/02/19 09:08 92 L 04/02/19 07:50 97.9 F 93 18 137/86 92 L Weight Weight 226 lb I&O: 04/01/19 04/02/19 04/03/19 06:59 06:59 06:59 Intake Total 600 1080 Output Total 2275 300 Balance -7545 780 Result Diagrams: 04/02/19 09:33 04/02/19 05:10 Additional Labs: Labs and MARs reviewed by me EKG Reviewed by me: Yes (Tele: aris argueta with rvr) Hospitalist ROS - Review of Systems Cardiovascular: reports: palpitations. denies: chest pain, orthopnea, paroxysmal noc. dyspnea, edema, light headedness Gastrointestinal: denies: nausea, vomiting, abdominal pain, diarrhea, constipation, melena, hematochezia - Medication Medications: Active Medications Generic Name Dose Route Start Last Admin Trade Name Freq PRN Reason Stop Dose Admin Acetaminophen 650 mg 03/29/19 17:26 04/01/19 09:03 Tylenol PO 650 mg Q4H PRN Administration Headache/Fever/Mild Pain (1-3) Apixaban 5 mg 03/29/19 21:00 04/02/19 09:08 Eliquis PO 5 mg BID [facility] Administration Aspirin 81 mg 03/30/19 09:00 04/02/19 09:08 Ecotrin PO 81 mg DAILY [facility] Administration Atorvastatin Calcium 80 mg 03/30/19 21:00 04/01/19 21:03 Lipitor PO 80 mg HS [facility] Administration Calcium Carbonate 1,000 mg 03/29/19 17:26 03/31/19 17:34 Tums PO 1,000 mg Q4H PRN Administration Heartburn or Indigestion Digoxin 0.25 mg 04/02/19 09:00 04/02/19 09:08 Lanoxin PO 0.25 mg DAILY [facility] Administration Diltiazem HCl 60 mg 04/01/19 13:00 04/02/19 14:37 Cardizem PO 60 mg QID [facility] Administration Furosemide 40 mg 03/31/19 14:00 04/02/19 14:37 Lasix PO 40 mg 0900,1400 [facility] Administration Lisinopril 10 mg 04/01/19 09:00 04/02/19 09:08 Zestril PO 10 mg DAILY [facility] Administration Nicotine 14 mg 03/29/19 18:00 04/01/19 16:27 Nicoderm Patch TD Not Given Q24HR [facility] Sodium Chloride 10 ml 03/29/19 19:30 04/01/19 09:07 Flush - Normal Saline IVF 10 ml PRN PRN Administration Saline Flush Venlafaxine HCl 150 mg 04/02/19 09:00 04/02/19 09:08 Effexor Xr PO 150 mg DAILY [facility] Administration - Exam General - other findings: Obese Eye: anicteric sclera ENT: moist mucosa Heart: irregular Heart - other findings: S1, S2, tachy Respiratory: CTAB Gastrointestinal: soft, non-tender Extremities: 1+ LE edema Musculoskeletal: normal strength Psychiatric: normal affect, normal behavior Hosp A/P (1) Atrial fibrillation with RVR Code(s): I48.91 - UNSPECIFIED ATRIAL FIBRILLATION Status: Acute (2) Combined systolic and diastolic congestive heart failure, NYHA class 3 Code(s): I50.40 - UNSP COMBINED SYSTOLIC AND DIASTOLIC (CONGESTIVE) HRT FAIL Status: Acute (3) COPD (chronic obstructive pulmonary disease) Status: Chronic (4) CAD (coronary artery disease) Code(s): I25.10 - ATHSCL HEART DISEASE OF [place] CORONARY ARTERY W/O ANG PCTRS Status: Chronic (5) GERD (gastroesophageal reflux disease) Code(s): K21.9 - GASTRO-ESOPHAGEAL REFLUX DISEASE WITHOUT ESOPHAGITIS Status: Chronic (6) HTN (hypertension) Code(s): I10 - ESSENTIAL (PRIMARY) HYPERTENSION Status: Chronic (7) Tobacco abuse Code(s): Z72.0 - TOBACCO USE Status: Chronic - Plan PT/OT, out of bed/ambulate Pt continues to be in A. fib with rvr, is on digoxin diltiazem, started on carvedilol. CHF improved with furosemide. GERD stable. HTN controlled. For stress test tomorrow. Continue nicotine patch.
[2019-04-02] MEDS: Carvedilol 3.125 MG TAB PO SCH (17:17)
[2019-04-02] MEDS: Calcium Carbonate 500 MG ChewTAB PO PRN ×2 (17:21→22:13)
[2019-04-02] MEDS: Nicotine 14 MG PATCH TD SCH (17:22)
[2019-04-02] MEDS: Atorvastatin Calcium 40 MG TAB PO SCH (19:47)
[2019-04-03 05:21] LABS: #Basophils 0.1 thou/uL (0.0-0.2); #Eosinphils 0.2 thou/uL (0.0-0.7); #Lymphocytes 1.7 thou/uL (1.20-3.40); #Monocytes 0.8 thou/uL (0.11-0.59); #Neutrophils 5.9 thou/uL (1.40-6.50); %Basophils 0.8 % (0.0-1.0); %Eosinophils 2.7 % (0.0-10.0); %Lymphocytes 19.7 % (21.0-51.0); %Monocytes 9.4 % (0.0-10.0); %Neutrophils 67.4 % (42.0-75.0); Hemoglobin 13.5 g/dL (12.0-16.0); Mean Corpuscular HGB CONC 32.8 g/dL (32.0-36.0); Mean Corpuscular Hemoglobin 30.2 pg (27.0-31.0); Mean Corpuscular Volume 92.2 fL (78.0-98.0); Mean Platelet Volume 8.7 fL (7.4-10.4); Platelet Count 166 thou/uL (130-400); Red Blood Cell (RBC) Count 4.48 mill/uL (4.20-5.40); White Blood Cell (WBC) Count 8.7 thou/uL (4.8-10.8)
[2019-04-03 05:35] LABS: Anion Gap 12 mmol/L (10-20); BUN (Urea Nitrogen) 14 mg/dL (9.8-20.1); Calc. Creatinine Clearance 139 mL/min (70-130); Calcium 9.7 mg/dL (7.8-10.44); Carbon Dioxide 34 mmol/L (23-31); Chloride 95 mmol/L (98-107); Estimated GFR-MDRD 86; Glucose 115 mg/dL (80-115); Potassium 3.6 mmol/L (3.5-5.1); Sodium 137 mmol/L (136-145)
--- NOTE | 2019-04-03 10:08 | PDOC.HOSPP ---
- Subjective Encounter Date: 04/03/19 Encounter Time: 07:00 Subjective: Pt seen for followup re: afib with RVR. Feels better, no complaints. - Objective Vital Signs & Weight: Vital Signs (12 hours) Temp Pulse Resp BP BP Pulse Ox 04/03/19 07:30 97.8 F 103 H 17 133/88 92 L 04/03/19 03:25 98.6 F 82 18 165/76 H 93 L Weight Weight 224 lb 9.6 oz I&O: 04/02/19 04/03/19 04/04/19 06:59 06:59 06:59 Intake Total 1080 1200 Output Total 300 Balance 780 1200 Result Diagrams: 04/03/19 04:47 04/03/19 04:47 Additional Labs: Labs and MARs reviewed by me EKG Reviewed by me: Yes (Tele: aris argueta) Hospitalist ROS - Review of Systems Respiratory: denies: cough, shortness of breath, SOB with excertion, pleuritic pain, wheezing Cardiovascular: denies: chest pain, palpitations, orthopnea, paroxysmal noc. dyspnea, edema, light headedness - Medication Medications: Active Medications Generic Name Dose Route Start Last Admin Trade Name Freq PRN Reason Stop Dose Admin Acetaminophen 650 mg 03/29/19 17:26 04/01/19 09:03 Tylenol PO 650 mg Q4H PRN Administration Headache/Fever/Mild Pain (1-3) Apixaban 5 mg 03/29/19 21:00 04/02/19 19:48 Eliquis PO 5 mg BID [facility] Administration Aspirin 81 mg 03/30/19 09:00 04/02/19 09:08 Ecotrin PO 81 mg DAILY [facility] Administration Atorvastatin Calcium 80 mg 03/30/19 21:00 04/02/19 19:47 Lipitor PO 80 mg HS [facility] Administration Calcium Carbonate 1,000 mg 03/29/19 17:26 04/02/19 22:13 Tums PO 1,000 mg Q4H PRN Administration Heartburn or Indigestion Carvedilol 3.125 mg 04/02/19 17:00 04/02/19 17:17 Coreg PO 3.125 mg BID-WM [facility] Administration Digoxin 0.25 mg 04/02/19 09:00 04/02/19 09:08 Lanoxin PO 0.25 mg DAILY [facility] Administration Diltiazem HCl 60 mg 04/01/19 13:00 04/02/19 19:47 Cardizem PO 60 mg QID [facility] Administration Furosemide 40 mg 03/31/19 14:00 04/02/19 14:37 Lasix PO 40 mg 0900,1400 [facility] Administration Lisinopril 10 mg 04/01/19 09:00 04/02/19 09:08 Zestril PO 10 mg DAILY [facility] Administration Nicotine 14 mg 03/29/19 18:00 04/02/19 17:22 Nicoderm Patch TD Not Given Q24HR [facility] Sodium Chloride 10 ml 03/29/19 19:30 04/01/19 09:07 Flush - Normal Saline IVF 10 ml PRN PRN Administration Saline Flush Venlafaxine HCl 150 mg 04/02/19 09:00 04/02/19 09:08 Effexor Xr PO 150 mg DAILY [facility] Administration - Exam General - other findings: Obesity Eye: anicteric sclera ENT: normocephalic atraumatic, no oropharyngeal lesions Neck: supple Heart: no gallops, irregular Respiratory: CTAB, no ronchi Gastrointestinal: soft, non-tender Musculoskeletal: normal tone, normal strength Psychiatric: normal affect, normal behavior Hosp A/P (1) Atrial fibrillation with RVR Code(s): I48.91 - UNSPECIFIED ATRIAL FIBRILLATION Status: Acute (2) Combined systolic and diastolic congestive heart failure, NYHA class 3 Code(s): I50.40 - UNSP COMBINED SYSTOLIC AND DIASTOLIC (CONGESTIVE) HRT FAIL Status: Acute (3) COPD (chronic obstructive pulmonary disease) Status: Chronic (4) CAD (coronary artery disease) Code(s): I25.10 - ATHSCL HEART DISEASE OF [place] CORONARY ARTERY W/O ANG PCTRS Status: Chronic (5) GERD (gastroesophageal reflux disease) Code(s): K21.9 - GASTRO-ESOPHAGEAL REFLUX DISEASE WITHOUT ESOPHAGITIS Status: Chronic (6) HTN (hypertension) Code(s): I10 - ESSENTIAL (PRIMARY) HYPERTENSION Status: Chronic (7) Tobacco abuse Code(s): Z72.0 - TOBACCO USE Status: Chronic - Plan Heart rate improved, on Coreg, digoxin and diltiazem. CHF improved. GERD stable. HTN controlled. For stress test today. Seen by EP service, deciding re: EP study. Continue nicotine patch.
[2019-04-03] MEDS: Digoxin 0.25 MG TAB PO SCH (11:27)
[2019-04-03] MEDS: Carvedilol 3.125 MG TAB PO SCH ×2 (11:27→17:18)
[2019-04-03] MEDS: Aspirin 81 mg Enteric Coated Tablet PO SCH (11:27)
[2019-04-03] MEDS: Venlafaxine HCl XR 150 MG CAP PO SCH (11:27)
[2019-04-03] MEDS: Furosemide 20 MG TAB PO SCH ×2 (11:27→13:44)
[2019-04-03] MEDS: Apixaban 5 MG TAB PO SCH ×2 (11:27→21:17)
[2019-04-03] MEDS: Lisinopril 10 MG TAB PO SCH (11:28)
--- NOTE | 2019-04-03 13:13 | CON ---
DATE OF CONSULTATION: 04/03/2019 HISTORY OF PRESENT ILLNESS: I am seeing Ms. Sherman at our [facility] Telemetry Floor as an Electrophysiology oracle wms consultant. Her problems are: 1. Newly found persisting atrial fibrillation with rapid ventricular rates. a. Improvement with diltiazem and low-dose Coreg and digoxin. 2. Acute on chronic systolic/diastolic heart failure. a. History of possible ischemic cardiomyopathy with a reduced LVEF on echo 03/30/2019 at 40% to 45%, moderate left atrial and right atrial enlargement, moderate TR. b. History of coronary artery bypass grafting surgery x3 vessels in February 2000. 3. Pulmonary disease with current smoking and COPD. 4. Elevated BMI, borderline diabetes, and hypertension. 5. History of GERD. ALLERGIES: NONE NOTED. MEDICATIONS: At home include; 1. Venlafaxine. 2. Nexium. 3. Atorvastatin. 4. Colace. 5. Aspirin. 6. Norvasc. 7. Metoprolol succinate 100 mg once a day. SUBJECTIVE: Ms. Sherman was admitted on the to our facility after episodes of palpitations and dyspnea, also orthopnea and PND was noted. She had lower extremity swelling, initially received treatment for COPD, but was found to have elevated BNP. She is on furosemide as well. At the time of admission, denies chest pains. She does feel some throbbing in her ears as a symptom of her palpitations. She does not pass out. No stroke-like symptoms. No neurological deficits. No bleeding issues noted. No fever, chills, or cough. Rest of 12-point review of system otherwise unremarkable. PAST MEDICAL HISTORY: Including GERD, hypertension, osteoarthritis, CHF, COPD, asthma, and coronary artery disease as above. PAST SURGICAL HISTORY: Significant for bypass grafting surgery x3 and left femoral surgery. PSYCH HISTORY: Significant for depression. SOCIAL HISTORY: The patient drinks a drink during the weekdays. Smokes 3 to 4 cigarettes a day. Lives alone. 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 Denies drug use. FAMILY HISTORY: Not significant for early coronary artery disease. OBJECTIVE DATA: VITAL SIGNS: Currently 133/88, heart rate 103, respirations 17, and temperature 97.8 degrees Fahrenheit. GENERAL: Alert and oriented woman, in no apparent distress with elevated BMI. NECK: Supple. Jugular veins difficult to visualize, but does not appear distended. CHEST: Coarse without crackles. HEART: Sounds are irregularly irregular. S1 and S2 are variable. No murmur or gallop. ABDOMEN: Benign. Bowel sounds positive. EXTREMITIES: Lower extremities without edema, clubbing, or cyanosis. Pulses are adequate. NEUROLOGIC: The patient is nonfocal. MUSCULOSKELETAL: Without joint swelling or deformity. SKIN: Without rash. DATABASE: EKG is reviewed revealing atrial fibrillation on admission with rates 98 beats per minute, narrow QRS is noted, and nonspecific ST-T changes seen. Subsequent telemetry EKGs do reveal episodic rapid ventricular rates. IV Cardizem use was noted on the . The telemetry strips reveals reasonable rate control overnight with mild heart rate increases this morning is seen. LABORATORY DATA: Most recent sodium 142, potassium 3.8, BUN is 18, and creatinine 0.75. Troponin levels are 0.025, 0.031, and 0.029 consecutively. Lab data, the white cell count is 8.7, hemoglobin 13.5, and platelet count is 166. ASSESSMENT AND PLAN: Ms. Sherman is a pleasant 59-year-old woman with history of coronary artery disease with remote bypass surgery, who presents with a newly found atrial fibrillation with good ventricular rate control. She also found to have acute on chronic systolic and diastolic heart failure exacerbation with left ventricular ejection fraction of 40% to 45% on echocardiogram, improved with Lasix. Heart rate control efforts were started with diltiazem and digoxin suboptimal, now low-dose beta federico is also added and diltiazem was increased. She is started on anticoagulation with Eliquis. We discussed the treatment options, which could include rate control and I think eventually, we will achieve reasonable rate control with the triple AV yazan blocking regimen. She may need nonselective beta blockers to avoid bronchospasm like metoprolol and Bystolic. The duration of atrial fibrillation is unclear. It may be reasonable to attempt maintenance of sinus rhythm. Cardioversion alone might not provide long-term suppression. She might need antiarrhythmic agents like Tikosyn, hence her renal function is reasonable and QT does not appear markedly prolonged. This may be reasonable option in this part of her history of cardiomyopathy and coronary artery disease. Alternative would be amiodarone, but with her pulmonary disease, this may be a difficult proposition. Thrombus risk with atrial fibrillation is elevated with her history of heart failure, coronary vascular disease, gender, hypertension, and possible diabetes up to 5. I agree with the initiated Eliquis therapy. We discussed the long-term treatment of atrial fibrillation. This lady may benefit from an invasive ablated approach as well, although with her comorbidities and the significant left atrial enlargement, this may not be a simple approach either. I would like to follow her as an outpatient for consideration for a pulmonary venous isolation procedure. Clearly, she needs to quit smoking, weight control issues, and alcohol moderations, all advised. We will discuss with Dr. Jane about options of transesophageal echocardiogram-guided cardioversion in or outpatient, possible Tikosyn therapy later. Thank you again for allowing me to participate in the care of this patient. Job ID: [id number]
--- NOTE | 2019-04-03 13:20 | PDOC.CPN ---
- Subjective Date: 04/03/19 Time: 13:23 Interval history: The pt seen and examined. No overnight events. No cardiac complaints. - Objective Allergies/Adverse Reactions: Allergies Allergy/AdvReac Type Severity Reaction Status Date / Time No Known Drug Allergies Allergy Verified 03/29/19 14:09 Visit Medications: Current Medications Acetaminophen (Tylenol) 650 mg PO Q4H PRN PRN Reason: Headache/Fever/Mild Pain (1-3) Last Admin: 04/01/19 09:03 Dose: 650 mg Acetaminophen (Tylenol) 650 mg ND Q4H PRN PRN Reason: Headache/Fever/Mild Pain (1-3) Albuterol/Ipratropium (Duoneb) 3 ml NEB Q4H PRN PRN Reason: Dyspnea Apixaban (Eliquis) 5 mg PO BID [facility] Last Admin: 04/03/19 11:27 Dose: 5 mg Aspirin (Ecotrin) 81 mg PO DAILY [facility] Last Admin: 04/03/19 11:27 Dose: 81 mg Atorvastatin Calcium (Lipitor) 80 mg PO HS [facility] Last Admin: 04/02/19 19:47 Dose: 80 mg Calcium Carbonate (Tums) 1,000 mg PO Q4H PRN PRN Reason: Heartburn or Indigestion Last Admin: 04/02/19 22:13 Dose: 1,000 mg Carvedilol (Coreg) 3.125 mg PO BID-WM [facility] Last Admin: 04/03/19 11:27 Dose: 3.125 mg Digoxin (Lanoxin) 0.25 mg PO DAILY [facility] Last Admin: 04/03/19 11:27 Dose: 0.25 mg Diltiazem HCl (Cardizem) 60 mg PO QID [facility] Last Admin: 04/03/19 11:27 Dose: 60 mg Furosemide (Lasix) 40 mg PO 0900,1400 [facility] Last Admin: 04/03/19 11:27 Dose: 40 mg Lisinopril (Zestril) 10 mg PO DAILY [facility] Last Admin: 04/03/19 11:28 Dose: 10 mg Nicotine (Nicoderm Patch) 14 mg TD Q24HR [facility] Last Admin: 04/02/19 17:22 Dose: Not Given Sodium Chloride (Flush - Normal Saline) 10 ml IVF PRN PRN PRN Reason: Saline Flush Last Admin: 04/01/19 09:07 Dose: 10 ml Venlafaxine HCl (Effexor Xr) 150 mg PO DAILY [facility] Last Admin: 04/03/19 11:27 Dose: 150 mg Vital Signs & Weight: Vital Signs Temp Pulse Resp BP BP BP Pulse Ox 04/03/19 12:07 97.9 F 106 H 16 146/78 H 96 04/03/19 11:28 131/79 04/03/19 11:27 109 H 04/03/19 07:30 97.8 F 103 H 17 133/88 92 L 04/03/19 03:25 98.6 F 82 18 165/76 H 93 L Weight 224 lb 9.6 oz - Physical Exam General: alert & oriented x3 Neck: supple neck Cardiac: irregularly regular Lungs: decreased breath sounds Neuro: cranial nerve 2-12 intact Abdomen: unremarkable Skin: clear Musculoskeletal: normal range of motion - Labs Result Diagrams: 04/03/19 04:47 04/03/19 04:47 Troponin/CKMB Troponin I Less than 0.010 ng/mL (< 0.028) 04/02/19 17:47 - Telemetry Supraventricular conduction: atrial fibrillation - Assessment/Plan Assessment/Plan: 1. New onset Afib with RVR - HR has been more stable with Digoxin 0.25mg qd, Diltiazem 60mg QID, and Coreg 3.125mg BID; Stress test today and the result is pending at this time; Possible VERENICE/DCCV with Tykosin or PVAI in future. Appreciate EP input! 2. Acute on Chronic combined HF with EF 40-45% and grade III dd - stable with RA ; On Lasix, Lisinopril and Coreg 3. CAD with hx of CABG x3 in 02/2000 - stable; On ASA, SILVERIO, Lipitor, and Coreg 4. HTN - stable 5. COPD/Asthama 6. borderline DM 7. Current smoker - strongly recommend smoking cessation to the pt MAR reviewed * Echo on 03/30/2019 with EF 40-45%, grade III dd, mild-mod ERA, trace MR, mod TR, mild ND, Pt. seen and eval. by me. I agree with the A/P by the SWITCH ENGINEER. She is feeling better. Tolerating betablocker thus far. Stress test negative for ischemia. EF 46%. Continue betablockers and increase as tolerated. [email or web address]
[2019-04-03] MEDS ORDERED: Regadenoson 0.4 MG/5 ML SYRINGE ONE (14:15)
--- NOTE | 2019-04-03 16:52 | NM ---
EXAM: Nuclear medicine cardiac perfusion examination with ejection fraction HISTORY: New onset atrial fibrillation TECHNIQUE: Rest images: 31.4 mCi technetium 99m sestamibi Stress images: 29.9 mCi of technetium 9M sestamibi; Lexiscan COMPARISON: None FINDINGS: Tomographic images: No fixed or reversible perfusion defects. Gated images: Normal wall motion and ejection fraction of 46%. EDV: 90 mL LHR: 0.5 TID: 1.0 IMPRESSION: No evidence of ischemia
--- NOTE | 2019-04-03 16:58 | PDOC.HOSPP ---
- Subjective Encounter Date: 04/03/19 Encounter Time: 11:00 Subjective: Pt seen for followup re: atrial fibrillation. Feels well, no complaints. - Objective Vital Signs & Weight: Vital Signs (12 hours) Temp Pulse Resp BP BP BP Pulse Ox 04/03/19 15:37 98.0 F 95 15 118/62 95 04/03/19 12:07 97.9 F 106 H 16 146/78 H 96 04/03/19 11:28 131/79 04/03/19 11:27 109 H 04/03/19 07:30 97.8 F 103 H 17 133/88 92 L Weight Weight 224 lb 9.6 oz I&O: 04/02/19 04/03/19 04/04/19 06:59 06:59 06:59 Intake Total 1080 1200 Output Total 300 Balance 780 1200 Result Diagrams: 04/03/19 04:47 04/03/19 04:47 Additional Labs: labs and MARs reviewed by me EKG Reviewed by me: Yes (Tele; a. fib) Hospitalist ROS - Review of Systems Cardiovascular: denies: chest pain, palpitations, orthopnea, paroxysmal noc. dyspnea, edema, light headedness Gastrointestinal: denies: nausea, vomiting, abdominal pain, diarrhea, constipation, melena, hematochezia - Medication Medications: Active Medications Generic Name Dose Route Start Last Admin Trade Name Freq PRN Reason Stop Dose Admin Acetaminophen 650 mg 03/29/19 17:26 04/01/19 09:03 Tylenol PO 650 mg Q4H PRN Administration Headache/Fever/Mild Pain (1-3) Apixaban 5 mg 03/29/19 21:00 04/03/19 11:27 Eliquis PO 5 mg BID [facility] Administration Aspirin 81 mg 03/30/19 09:00 04/03/19 11:27 Ecotrin PO 81 mg DAILY [facility] Administration Atorvastatin Calcium 80 mg 03/30/19 21:00 04/02/19 19:47 Lipitor PO 80 mg HS [facility] Administration Calcium Carbonate 1,000 mg 03/29/19 17:26 04/02/19 22:13 Tums PO 1,000 mg Q4H PRN Administration Heartburn or Indigestion Carvedilol 3.125 mg 04/02/19 17:00 04/03/19 11:27 Coreg PO 3.125 mg BID-WM [facility] Administration Digoxin 0.25 mg 04/02/19 09:00 04/03/19 11:27 Lanoxin PO 0.25 mg DAILY [facility] Administration Diltiazem HCl 60 mg 04/01/19 13:00 04/03/19 13:44 Cardizem PO 60 mg QID [facility] Administration Furosemide 40 mg 03/31/19 14:00 04/03/19 13:44 Lasix PO 40 mg 0900,1400 [facility] Administration Lisinopril 10 mg 04/01/19 09:00 04/03/19 11:28 Zestril PO 10 mg DAILY [facility] Administration Nicotine 14 mg 03/29/19 18:00 04/02/19 17:22 Nicoderm Patch TD Not Given Q24HR [facility] Sodium Chloride 10 ml 03/29/19 19:30 04/01/19 09:07 Flush - Normal Saline IVF 10 ml PRN PRN Administration Saline Flush Venlafaxine HCl 150 mg 04/02/19 09:00 04/03/19 11:27 Effexor Xr PO 150 mg DAILY [facility] Administration - Exam General - other findings: Obese Eye: anicteric sclera ENT: moist mucosa Neck: supple Heart: irregular Respiratory: CTAB Gastrointestinal: soft, non-tender Musculoskeletal: normal strength Psychiatric: normal affect, normal behavior Hosp A/P (1) Atrial fibrillation with RVR Code(s): I48.91 - UNSPECIFIED ATRIAL FIBRILLATION Status: Acute (2) Combined systolic and diastolic congestive heart failure, NYHA class 3 Code(s): I50.40 - UNSP COMBINED SYSTOLIC AND DIASTOLIC (CONGESTIVE) HRT FAIL Status: Acute (3) COPD (chronic obstructive pulmonary disease) Status: Chronic (4) CAD (coronary artery disease) Code(s): I25.10 - ATHSCL HEART DISEASE OF [place] CORONARY ARTERY W/O ANG PCTRS Status: Chronic (5) GERD (gastroesophageal reflux disease) Code(s): K21.9 - GASTRO-ESOPHAGEAL REFLUX DISEASE WITHOUT ESOPHAGITIS Status: Chronic (6) HTN (hypertension) Code(s): I10 - ESSENTIAL (PRIMARY) HYPERTENSION Status: Chronic (7) Tobacco abuse Code(s): Z72.0 - TOBACCO USE Status: Chronic - Plan out of bed/ambulate Heart rate significantly improved, continue digoxin, cardizem and carvedilol. CHF improved, continue furosemide 40 mg PO BID. GERD stable. HTN controlled. Pt had stress test today. Seen by EP service. Pt is on nicotine patch.
[2019-04-03] MEDS: Nicotine 14 MG PATCH TD SCH (17:19)
[2019-04-03] MEDS: Calcium Carbonate 500 MG ChewTAB PO PRN ×2 (17:19→21:13)
[2019-04-03] MEDS: Atorvastatin Calcium 40 MG TAB PO SCH (21:13)
[2019-04-04 05:38] LABS: #Basophils 0.1 thou/uL (0.0-0.2); #Eosinphils 0.2 thou/uL (0.0-0.7); #Lymphocytes 1.7 thou/uL (1.20-3.40); #Monocytes 0.8 thou/uL (0.11-0.59); #Neutrophils 5.4 thou/uL (1.40-6.50); %Basophils 0.7 % (0.0-1.0); %Eosinophils 2.8 % (0.0-10.0); %Lymphocytes 20.8 % (21.0-51.0); %Monocytes 9.7 % (0.0-10.0); Mean Corpuscular HGB CONC 32.7 g/dL (32.0-36.0); Mean Corpuscular Hemoglobin 30.3 pg (27.0-31.0); Mean Corpuscular Volume 92.5 fL (78.0-98.0); Mean Platelet Volume 8.7 fL (7.4-10.4); Platelet Count 167 thou/uL (130-400); Red Blood Cell (RBC) Count 4.61 mill/uL (4.20-5.40); White Blood Cell (WBC) Count 8.1 thou/uL (4.8-10.8)
[2019-04-04 05:59] LABS: Anion Gap 18 mmol/L (10-20); BUN (Urea Nitrogen) 16 mg/dL (9.8-20.1); Calc. Creatinine Clearance 123 mL/min (70-130); Calcium 9.4 mg/dL (7.8-10.44); Carbon Dioxide 28 mmol/L (23-31); Chloride 97 mmol/L (98-107); Estimated GFR-MDRD 76; Glucose 117 mg/dL (80-115); Potassium 4.5 mmol/L (3.5-5.1); Sodium 138 mmol/L (136-145)
[2019-04-04] MEDS: Digoxin 0.25 MG TAB PO SCH (08:05)
[2019-04-04] MEDS: Aspirin 81 mg Enteric Coated Tablet PO SCH (08:05)
[2019-04-04] MEDS: Venlafaxine HCl XR 150 MG CAP PO SCH (08:06)
[2019-04-04] MEDS: Apixaban 5 MG TAB PO SCH (08:06)
[2019-04-04] MEDS: Furosemide 20 MG TAB PO SCH (08:06)
[2019-04-04] MEDS: Carvedilol 3.125 MG TAB PO SCH (08:06)
[2019-04-04] MEDS: Lisinopril 10 MG TAB PO SCH (08:06)
[2019-04-04 11:15] VITALS: BP 129/73; TEMP 98
--- NOTE | 2019-04-04 12:02 | PDOC.CPN ---
- Subjective Date: 04/04/19 Time: 12:01 Interval history: EP PROGRESS NOTE: Newly diagnosed AF. On AOC and rate controlled, asymptomatic. Limited AAD options with comorbidities. - Review of Systems General: denies: fever/chills, weight/appetite/sleep changes, night sweats, fatigue Respiratory: denies: cough, congestion, shortness of breath, exercise intolerance Cardiovascular: denies: chest pain, palpitation, edema, paroxysmal nocturnal dyspnea, orthopnea Gastrointestinal: denies: nausea, vomiting, diarrhea, constipation, abd pain, GI bleeding Musculoskeletal: denies: pain, tenderness, stiffness, swelling, arthritis/ arthralgias Neurological: denies: numbness, syncope, seizure, weakness - Objective Allergies/Adverse Reactions: Allergies Allergy/AdvReac Type Severity Reaction Status Date / Time No Known Drug Allergies Allergy Verified 03/29/19 14:09 Visit Medications: Current Medications Acetaminophen (Tylenol) 650 mg PO Q4H PRN PRN Reason: Headache/Fever/Mild Pain (1-3) Last Admin: 04/01/19 09:03 Dose: 650 mg Acetaminophen (Tylenol) 650 mg [place] Q4H PRN PRN Reason: Headache/Fever/Mild Pain (1-3) Albuterol/Ipratropium (Duoneb) 3 ml NEB Q4H PRN PRN Reason: Dyspnea Apixaban (Eliquis) 5 mg PO BID [facility] Last Admin: 04/04/19 08:06 Dose: 5 mg Aspirin (Ecotrin) 81 mg PO DAILY [facility] Last Admin: 04/04/19 08:05 Dose: 81 mg Atorvastatin Calcium (Lipitor) 80 mg PO HS [facility] Last Admin: 04/03/19 21:13 Dose: 80 mg Calcium Carbonate (Tums) 1,000 mg PO Q4H PRN PRN Reason: Heartburn or Indigestion Last Admin: 04/03/19 21:13 Dose: 1,000 mg Carvedilol (Coreg) 3.125 mg PO BID[facility] Last Admin: 04/04/19 08:06 Dose: 3.125 mg Digoxin (Lanoxin) 0.25 mg PO DAILY [facility] Last Admin: 04/04/19 08:05 Dose: 0.25 mg Diltiazem HCl (Cardizem) 60 mg PO QID [facility] Last Admin: 04/04/19 08:06 Dose: 60 mg Furosemide (Lasix) 40 mg PO 0900,1400 [facility] Last Admin: 04/04/19 08:06 Dose: 40 mg Lisinopril (Zestril) 10 mg PO DAILY [facility] Last Admin: 04/04/19 08:06 Dose: 10 mg Nicotine (Nicoderm Patch) 14 mg TD Q24HR [facility] Last Admin: 04/03/19 17:19 Dose: Not Given Sodium Chloride (Flush - Normal Saline) 10 ml IVF PRN PRN PRN Reason: Saline Flush Last Admin: 04/01/19 09:07 Dose: 10 ml Venlafaxine HCl (Effexor Xr) 150 mg PO DAILY [facility] Last Admin: 04/04/19 08:06 Dose: 150 mg Vital Signs & Weight: Vital Signs Temp Pulse Resp BP BP Pulse Ox 04/04/19 11:11 98.0 F 89 12 129/73 93 L 04/04/19 08:06 156/96 H 04/04/19 08:05 88 04/04/19 08:00 97.6 F 88 14 156/96 H 95 04/04/19 03:42 95 04/04/19 03:34 98.2 F 82 18 175/77 H 92 L Weight 224 lb 8 oz - CHADS-VASc Congestive heart failure: 1 Hypertension: 1 Diabetes mellitus: 1 Vascular disease: 1 Female: 1 Risk Score: 5 - Quality Measures Condition: Atrial Fibrillation/Flutter (hx or current) CV meds: Beta Nessa: Yes, ASA: Yes, Anticoagulant: Yes - Physical Exam General: alert & oriented x3, appears well, no apparent distress HEENT: mucus membranes moist, normocephaly Neck: supple neck, midline trachea, no JVD/HJR, no masses, no bruit, no lymphadenopathy, no thromegaly Cardiac: no murmur, irregularly regular Lungs: clear to auscultation, normal breath sounds, normal exam, no wheeze, rales, rhonchi Neuro: cranial nerve 2-12 intact, grossly intact, motor function intact, sensory function intact, negative rhomberg, coordination normal, no lateralizing findings Abdomen: unremarkable, active bowel sounds, soft, non-tender, no masses, no pulsations/bruits, no hepatosplenomegaly - Labs Result Diagrams: 04/04/19 04:46 04/04/19 04:46 Troponin/CKMB Troponin I Less than 0.010 ng/mL (< 0.028) 04/02/19 17:47 - Telemetry Supraventricular conduction: atrial fibrillation - Assessment/Plan Assessment/Plan: 1. Atrial fibrillation -recently diagnosed, rate controlled and asymptomatic -Coreg 3.125 BID, Dig 250mcg QAM, and diltiazem 60mg PO QID 2. Anticoagulation - Eliquis 5mg PO BID - Chads vasc:5 OK for DC. Follow up with [facility] as scheduled in DC Plan (at [facility] ). Continue OAC and rate control meds. Will further discuss DCCV, AAD (tikosyn) , vs ablation therapy options at [facility]. Must be on AOC x 4 weeks before DCCV without VERENICE.
--- NOTE | 2019-04-04 12:49 | PDOC.CPN ---
- Subjective Date: 04/04/19 Time: 13:00 Interval history: The pt seen and examined. No overnight events. No cardiac complaints. - Objective Allergies/Adverse Reactions: Allergies Allergy/AdvReac Type Severity Reaction Status Date / Time No Known Drug Allergies Allergy Verified 03/29/19 14:09 Visit Medications: Current Medications Acetaminophen (Tylenol) 650 mg PO Q4H PRN PRN Reason: Headache/Fever/Mild Pain (1-3) Last Admin: 04/01/19 09:03 Dose: 650 mg Acetaminophen (Tylenol) 650 mg NE Q4H PRN PRN Reason: Headache/Fever/Mild Pain (1-3) Albuterol/Ipratropium (Duoneb) 3 ml NEB Q4H PRN PRN Reason: Dyspnea Apixaban (Eliquis) 5 mg PO BID [facility] Last Admin: 04/04/19 08:06 Dose: 5 mg Aspirin (Ecotrin) 81 mg PO DAILY [facility] Last Admin: 04/04/19 08:05 Dose: 81 mg Atorvastatin Calcium (Lipitor) 80 mg PO HS [facility] Last Admin: 04/03/19 21:13 Dose: 80 mg Calcium Carbonate (Tums) 1,000 mg PO Q4H PRN PRN Reason: Heartburn or Indigestion Last Admin: 04/03/19 21:13 Dose: 1,000 mg Carvedilol (Coreg) 3.125 mg PO BID-WM [facility] Last Admin: 04/04/19 08:06 Dose: 3.125 mg Digoxin (Lanoxin) 0.25 mg PO DAILY [facility] Last Admin: 04/04/19 08:05 Dose: 0.25 mg Diltiazem HCl (Cardizem) 60 mg PO QID [facility] Last Admin: 04/04/19 08:06 Dose: 60 mg Furosemide (Lasix) 40 mg PO DAILY-[facility] Lisinopril (Zestril) 10 mg PO DAILY [facility] Last Admin: 04/04/19 08:06 Dose: 10 mg Nicotine (Nicoderm Patch) 14 mg TD Q24HR [facility] Last Admin: 04/03/19 17:19 Dose: Not Given Sodium Chloride (Flush - Normal Saline) 10 ml IVF PRN PRN PRN Reason: Saline Flush Last Admin: 04/01/19 09:07 Dose: 10 ml Venlafaxine HCl (Effexor Xr) 150 mg PO DAILY [facility] Last Admin: 04/04/19 08:06 Dose: 150 mg Vital Signs & Weight: Vital Signs Temp Pulse Resp BP BP Pulse Ox 04/04/19 11:11 98.0 F 89 12 129/73 93 L 04/04/19 08:06 156/96 H 04/04/19 08:05 88 04/04/19 08:00 97.6 F 88 14 156/96 H 95 04/04/19 03:42 95 04/04/19 03:34 98.2 F 82 18 175/77 H 92 L Weight 224 lb 8 oz - Quality Measures Condition: Atrial Fibrillation/Flutter (hx or current) CV meds: Beta Nessa: Yes, ASA: Yes, Anticoagulant: Yes - Physical Exam Neck: supple neck Cardiac: irregularly regular Lungs: clear to auscultation, decreased breath sounds Neuro: cranial nerve 2-12 intact Skin: clear Musculoskeletal: normal range of motion - Labs Result Diagrams: 04/04/19 04:46 04/04/19 04:46 Troponin/CKMB Troponin I Less than 0.010 ng/mL (< 0.028) 04/02/19 17:47 - Telemetry Supraventricular conduction: atrial fibrillation - Assessment/Plan Assessment/Plan: 1. New onset Afib with RVR - HR has been more stable with Digoxin 0.25mg qd, Diltiazem 60mg QID, and Coreg 3.125mg BID; On Eliquis 5mg PO BID (for Chads vasc :5); Stress test on 04/03/2019 with no reversible ischemia with EF 46%; Possible VERENICE/DCCV with Tykosin or PVAI in future (must be on AOC x 4 wks before VERENICE/DCCV). Appreciate EP input! 2. Acute on Chronic combined HF with EF 40-45% and grade III dd - stable with RA ; On Lasix, Lisinopril and Coreg 3. CAD with hx of CABG x3 in 02/2000 - stable; On ASA, SILVERIO, Lipitor, and Coreg 4. HTN - stable 5. COPD/Asthama 6. borderline DM 7. Current smoker - strongly recommend smoking cessation to the pt MAR reviewed * Echo on 03/30/2019 with EF 40-45%, grade III dd, mild-mod ERA, trace MR, mod TR, mild NE, Pt. seen and eval. by me. I agree with the A/P by the MANDREL PULLER and EP. She will be seen by EP in the near future to discuss possible cardioversion vs ablation of the atrial fibrillation. She is feeling much better. Chest clear. Irreg/irreg. Tolerating betablockers. [email or web address]
--- NOTE | 2019-04-05 05:31 | DIS ---
DATE OF ADMISSION: 03/29/2019 DATE OF DISCHARGE: 04/04/2019 PRIMARY CARE PROVIDER: Jeanine Sosa MD DISCHARGE DIAGNOSES: 1. Atrial fibrillation with rapid ventricular response. 2. Combined systolic and diastolic heart failure exacerbation, [place] Heart Association class C. 3. Hypokalemia. CONDITION OF PATIENT ON THE DAY OF DISCHARGE: Stable. I assessed Ms. Sherman on the day of discharge. She denies any chest pain or shortness of breath. Vital signs are stable. S1 and S2 are heard, regular. Lungs are clear to auscultation bilaterally. CONSULTATIONS DURING THIS HOSPITALIZATION: 1. Cardiology, Dr. Jane. 2. Electrophysiology, Dr. Medellin. FOLLOWUP APPOINTMENTS: The patient is advised to follow up with; 1. Primary care provider on April 11, 2019 at 1:[address] Counsellor at 9 a.m. on April 29, 2019. 3. Wringer [employer] Setter at 2:30 p.m. on April 23, 2019. DISCHARGE MEDICATIONS: 1. Aspirin 81 mg daily. 2. Atorvastatin 80 mg daily. 3. Nexium 20 mg daily. 4. Docusate/sennosides 1 tablet daily. 5. Venlafaxine 150 mg daily. 6. Apixaban 5 mg 2 times a day. 7. Coreg 3.125 mg 2 times a day. 8. Digoxin 250 mcg daily. 9. Cardizem 60 mg 4 times a day. 10. Lasix 40 mg 2 times a day. 11. Lisinopril 10 mg daily. HOSPITAL COURSE: Ms. Sherman is a pleasant 59-year-old lady, who was admitted to [facility] on March 29, 2019, for atrial fibrillation with rapid ventricular response and congestive heart failure exacerbation. She was seen by Cardiology and Electrophysiology Services. She was treated with intravenous diuretics. She was also treated with calcium channel blockers for atrial fibrillation with rapid ventricular response. 2D echocardiogram showed left ventricular ejection fraction of 40% to 45%, restrictive filling pattern, normal right ventricular size and function, moderately dilated left atrium, mild to moderately enlarged right atrium size, trace mitral regurgitation, tricuspid aortic valve, moderate tricuspid regurgitation, and mild pulmonic regurgitation. She improved clinically. She also underwent nuclear stress test, which did not show any evidence of ischemia. She will follow up with Cardiology and Electrophysiology Services as outpatient. She is advised to have her creatinine and electrolytes checked through her primary care provider in 1 week's time. She has been advised to stop smoking. Many thanks for allowing me to participate in your patient's care. Please feel free to contact me with any questions or concerns. On April 02, she had creatinine of 0.73. DISCHARGE DESTINATION: Home. TIME SPENT: Total amount of time spent coordinating this discharge: 32 minutes. Job ID: [id number]
[2019-04-05] MEDS ORDERED: Furosemide 40 MG TAB PO SCH (07:30)
== END 2019-04-04 16:26 | disposition home or self-care (01) | DRG 308 ==
LOC: ERS 15:09 → 2NO 18:23
PROVIDERS: ADMIT Internal Medicine; ATTEND Internal Medicine
DX: I48.91 Unspecified atrial fibrillation (principal); I50.43 Acute on chronic combined systolic (congestive) and diastolic (congestive) heart failure; I11.0 Hypertensive heart disease with heart failure; E87.6 Hypokalemia; I08.3 Combined rheumatic disorders of mitral, aortic and tricuspid valves; K21.9 Gastro-esophageal reflux disease without esophagitis; M19.90 Unspecified osteoarthritis, unspecified site; J44.9 Chronic obstructive pulmonary disease, unspecified; I25.10 Atherosclerotic heart disease of native coronary artery without angina pectoris; F32.9 Major depressive disorder, single episode, unspecified; F17.210 Nicotine dependence, cigarettes, uncomplicated; E66.9 Obesity, unspecified; R73.03 Prediabetes; I25.5 Ischemic cardiomyopathy; Z79.1 Long term (current) use of non-steroidal anti-inflammatories (NSAID); Z95.1 Presence of aortocoronary bypass graft; Z79.82 Long term (current) use of aspirin; Z79.51 Long term (current) use of inhaled steroids; Z79.899 Other long term (current) drug therapy; Z68.38 Body mass index [BMI] 38.0-38.9, adult
CPT/HCPCS: 36415; 36416; 78452; 80048; 80076; 82550; 82565; 84484; 85014; 85018; 85025; 85049; 93005; 93017; 93306; 93798; 94640; 96374; 96375; A9500; J1160; J1940; J2785; J3490; J7620

== ENCOUNTER 2019-05-02 17:00 | Outpatient (CLI) | payer OTHER ==
--- NOTE | 2019-05-06 10:32 | EKG ---
Test Reason : Blood Pressure : / mmHG Vent. Rate : 080 BPM Atrial Rate : 092 BPM P-R Int : 000 ms QRS Dur : 090 ms QT Int : 358 ms P-R-T Axes : 000 067 -55 degrees QTc Int : 412 ms Atrial fibrillation with premature ventricular or aberrantly conducted complexes Cannot rule out Inferior infarct (cited on or before 29-MAR-2019) Abnormal ECG Confirmed by NICOLE BANDA, PK ([id number]) on 05/06/2019 10:32:12 AM Referred By: MORTEZA Confirmed By:PK RIVERA MD
== END 2019-05-02 17:01 | disposition home or self-care (01) ==
LOC: LABBT 17:00
PROVIDERS: ATTEND Internal Medicine Cardiovascular Disease
DX: Z01.818 Encounter for other preprocedural examination (principal); I48.0 Paroxysmal atrial fibrillation
CPT/HCPCS: 93005; 93010

== ENCOUNTER 2019-05-05 06:11 | Day surgery (SDC) | payer OTHER ==
[2019-05-02 17:12] VITALS: BMI 36.3
[2019-05-05] MEDS ORDERED: PROPOFOL 20 ML ONE (06:54)
--- NOTE | 2019-05-05 15:51 | EKG ---
Test Reason : POST CARDIOVERSION Blood Pressure : / mmHG Vent. Rate : 065 BPM Atrial Rate : 065 BPM P-R Int : 182 ms QRS Dur : 092 ms QT Int : 372 ms P-R-T Axes : 067 040 -80 degrees QTc Int : 386 ms Normal sinus rhythm Possible Inferior infarct (cited on or before 29-MAR-2019) Abnormal ECG Confirmed by DAMIEN ZARATE ([id number]) on 05/05/2019 3:51:44 PM Referred By: MORTEZA Confirmed By:DAMIEN ZARATE
--- NOTE | 2019-05-06 18:02 | DIS ---
DATE OF PROCEDURE: 05/05/19 DATE OF DISCHARGE: 05/05/19 INDICATION FOR PROCEDURE: This is a 59-year-old female with atrial flutter. She has a been treated by medical management. She h as been on Eliquis for several months. She has both systolic and diastolic heart failure with ejectio n fraction of 40-45% with moderate to left and right atrial dilatation. She also has coronary artery disease. She underwent bypass grafting in 1999. She has a history of tobacco abuse, COPD, diabetes, h ypertension and obesity. She was brought to the hospital as an outpatient to undergo electrical cardi oversion of her atrial fibrillation. Her discharge medications include venlafaxine. Her present medications included venlafaxine, Eliquis , Cored, digoxin, furosemide, lisinopril, atorvastatin, aspirin, Symbicort, Ventolin, Diltiazem, Docu sate, and nitroglycerin. The patient was taken to the recovery area where she underwent short acting propofol and using one at tempt at 200 joules, she was successfully converted back to sinus rhythm with a heart rate in the 60s . She had no difficulties or complications encountered during the procedure. She has remained stable and is ready for discharge. She will follow-up with Dr. Medellin for further treatment or evaluation and I will see her back in the office on a routine basis. She underwent the procedure without any difficu lties and is awake and alert. The procedure entailed just short acting propofol and then one attempt at 200 joules to convert her back to sinus rhythm. She will be discharged if she remains stable and I will see her back in the office and Dr. Medellin will see her in six weeks.
--- NOTE | 2019-05-06 18:03 | OP ---
CARDIOVERSION: DATE OF PROCEDURE: 05/05/19 INDICATION FOR PROCEDURE: 59-year-old female with atrial fibrillation who has been on medical management as well as oral antico agulation. Advised to undergo electrical cardioversion. The patient was taken to the recovery area where she underwent short acting propofol and using one at tempt at 200 joules, she was successfully converted back to sinus rhythm. There were no difficulties or complications encountered. She has remained stable. She will be discharged to home. We will see he r back in the office. She is to follow-up with Dr. Medellin in six weeks.
== END 2019-05-05 09:26 | disposition home or self-care (01) ==
LOC: CCL 06:11
PROVIDERS: ATTEND Internal Medicine Cardiovascular Disease
PROC: 5A2204Z Restoration of Cardiac Rhythm, Single (ICD-10-PCS; principal; 2019-05-05)
DX: I48.0 Paroxysmal atrial fibrillation (principal); I11.0 Hypertensive heart disease with heart failure; I50.40 Unspecified combined systolic (congestive) and diastolic (congestive) heart failure; J44.9 Chronic obstructive pulmonary disease, unspecified; E11.9 Type 2 diabetes mellitus without complications; E66.9 Obesity, unspecified; Z87.891 Personal history of nicotine dependence; Z79.01 Long term (current) use of anticoagulants; Z79.82 Long term (current) use of aspirin; Z79.899 Other long term (current) drug therapy; Z68.36 Body mass index [BMI] 36.0-36.9, adult
CPT/HCPCS: 93005; 93010; J2704

== ENCOUNTER 2019-12-15 12:31 | Inpatient (IN) | payer OTHER ==
[2019-12-15] MEDS ORDERED: Aspirin 325 MG TAB ONE (13:16)
[2019-12-15] MEDS ORDERED: Diltiazem 125 MG/25 ML ONE (13:18)
[2019-12-15] MEDS ORDERED: Diltiazem HCl 125 MG, Admixture Fee 1 EACH in Sodium Chloride 0.9% 100 ML IVPB SCH (15:45)
[2019-12-15 15:51] VITALS: BMI 37.1
[2019-12-15] MEDS ORDERED: hydrALAZINE 20 MG/ML VIAL SLOW IVP PRN (17:01)
[2019-12-15] MEDS ORDERED: Acetaminophen 500 MG TAB PO PRN (17:01)
[2019-12-15] MEDS ORDERED: Ondansetron ODT 4 MG TAB PO PRN (17:01)
[2019-12-15] MEDS ORDERED: Ondansetron PF 4 MG/2 ML Vial IVP PRN (17:01)
[2019-12-15] MEDS ORDERED: Potassium Chloride 20 MEQ TAB PO SCH (17:45)
[2019-12-15] MEDS: Mometasone 200 MCG/Formoterol 5 MCG 120 PUFF INHALER INH SCH (18:49)
[2019-12-15] MEDS: Atorvastatin Calcium 40 MG TAB PO SCH (20:21)
[2019-12-15] MEDS: Famotidine 20 MG TAB PO SCH (20:21)
[2019-12-15] MEDS: Apixaban 5 MG TAB PO SCH (20:22)
[2019-12-15] MEDS: Furosemide 40 MG TAB PO SCH (20:22)
[2019-12-15] MEDS: Carvedilol 3.125 MG TAB PO SCH (20:22)
--- NOTE | 2019-12-15 22:01 | HP ---
PRIMARY CARE PROVIDER: Jeanine Sosa MD PRIMARY TAX SERVICES INTERN: Alexandra Jane MD CHIEF COMPLAINT: Shortness of breath and palpitations. HISTORY OF PRESENT ILLNESS: This is a 59-year-old female, who presents to [facility] Emergency Department complaining of palpitations with shortness of breath over the last 48 hours. The patient with a history of atrial fibrillation, treated with oral Cardizem and carvedilol as well as anticoagulation with Eliquis. The patient states she has been compliant with her medication regimen, but feels like stress due to her work and the current oral situation have exacerbated her heart condition. The patient denied any prominent swelling of her ankles, but does admit to some shortness of breath and has had insomnia over the last three nights. The patient denied any fever, chills, or exposure history. The patient denied any recent travel, change to her chronic medication regimen or recent pneumonia. In the emergency room, the patient underwent general evaluation with EKG showing atrial fibrillation with rates in the low-to-mid 100s. The patient received initially Cardizem bolus of 20 mg followed by an infusion at 5 mg/hour titrating up to 12.5 mg/hour. PAST MEDICAL HISTORY: 1. Atrial fibrillation with rapid ventricular response, status post cardioversion on chronic anticoagulation with Eliquis. 2. Chronic obstructive pulmonary disease/asthma. 3. Congestive heart failure with ejection fraction of 40% to 45%. 4. Osteoarthritis. 5. Hypertension. 6. Depression. PAST SURGICAL HISTORY: 1. Status post coronary artery bypass grafting x3 vessels. 2. Status post left femur repair. CURRENT MEDICATIONS: 1. Diltiazem 60 mg p.o. q.i.d. 2. Nexium 20 mg p.o. daily. 3. Lisinopril 10 mg p.o. daily. 4. Nitroglycerin 0.4 mg sublingually q.5 minutes p.r.n. chest pain. 5. Venlafaxine extended release 225 mg p.o. daily. 6. Ventolin HFA 2 puffs inhaled q.6 hours p.r.n. 7. Celebrex 200 mg p.o. daily. 8. Eliquis 5 mg p.o. b.i.d. 9. Aspirin 81 mg p.o. daily. 10. Lipitor 80 mg p.o. daily. 11. Symbicort 160/4.5 two puffs inhaled b.i.d. 12. Coreg 3.125 mg p.o. b.i.d. 13. Lasix 40 mg p.o. b.i.d. ALLERGIES: NO KNOWN DRUG ALLERGIES. FAMILY HISTORY: Positive for hypertension. SOCIAL HISTORY: Resides in [place], [place]. Works at [employer]. Smokes up to half a pack of cigarettes daily. No illicit drug use. Alcohol use 2 to 3 times per week. REVIEW OF SYSTEMS: CONSTITUTIONAL: Negative for weight loss or gain, ability to conduct usual activities. SKIN: Negative for rash, itching. EYES: Negative for double vision, pain. ENT/MOUTH: Negative for nose bleeding, neck stiffness, pain, tenderness. CARDIOVASCULAR: Negative for palpitations, dyspnea on exertion, orthopnea. RESPIRATORY: Negative for shortness of breath, wheezing, cough, hemoptysis, fever or night sweats. GASTROINTESTINAL: Negative for poor appetite, abdominal pain, heartburn, nausea, vomiting, constipation, or diarrhea. GENITOURINARY: Negative for urgency, frequency, dysuria, nocturia. MUSCULOSKELETAL: Negative for pain, swelling. NEUROLOGIC/PSYCHIATRIC: Negative for anxiety, depression. ALLERGY/IMMUNOLOGIC: Negative for skin rash, bleeding tendency. Otherwise negative except as stated per HPI. PHYSICAL EXAMINATION: VITAL SIGNS: Blood pressure 154/85, pulse 112, respiratory rate 20, temperature 97.9 degrees Fahrenheit, O2 saturation 96% on 2 L/minute by nasal cannula. GENERAL APPEARANCE: This is a 59-year-old female, alert and oriented x3, pleasant, in no acute distress. HEENT: Pupils are equal, round, reactive to light and accommodation. Extraocular muscles are intact. No scleral icterus. No conjunctival injection. Nares are patent. OP is clear. Teeth in fair repair. NECK: Supple. No cervical adenopathy. No thyromegaly. No carotid bruits. No JVD appreciated. Cervical spine with full active and passive range of motion. No meningeal signs noted. CHEST: Diminished breath sounds in the bases bilaterally. Occasional expiratory wheeze. CARDIOVASCULAR EXAM: S1-S2 with irregular rate and rhythm. Heart sounds are distant. ABDOMEN: Obese, soft, nontender, and nondistended. Bowel sounds are positive in all 4 quadrants. There is no hepatosplenomegaly. No abdominal bruits. No rebound or guarding appreciated. EXTREMITIES: Warm and dry with fair turgor. 1+ pitting edema to the bilateral lower extremities. Pulses palpable distally at the dorsalis pedis, posterior tibial, and popliteal arteries bilaterally. Capillary refill less than 2 seconds. NEUROLOGIC: Cranial nerves 2 through 12 are grossly intact. No focal or lateralizing signs appreciated. PERTINENT LAB AND X-RAY FINDINGS: Sodium 140, potassium 3.0, chloride 100, CO2 of 30, BUN 18, creatinine 0.80, glucose 174, calcium 9.0. LFTs within normal limits. BNP 566, previously noted 618, 03/29/2019. Troponin I negative x1. CBC showed a white blood cell count of 7.3, hemoglobin 11, hematocrit 35, platelet count 150 with 75% neutrophils. PT 18.4, INR 1.5, PTT 34.9. Portable chest x-ray dated 12/15/2019, showed mild cardiomegaly. No acute infiltrates identified. CT of the brain without contrast dated 12/15/2019, showed no acute intracranial process. EKG dated 12/15/2019 by my interpretation shows atrial fibrillation with rapid ventricular response, heart rates in the low 100s. Normal R-wave progression noted in the precordial leads. Normal axis. No acute ST-T wave changes appreciated. ASSESSMENT AND PLAN: 1. Atrial fibrillation with rapid ventricular response. The patient will be admitted to the telemetry unit. We will continue Cardizem infusion at 12.5 mg/hour. Resume Coreg 3.125 mg b.i.d. Continue Eliquis 5 mg b.i.d. Check 2D transthoracic echocardiogram for ejection fraction and valvular function. Check magnesium and TSH level in the a.m. Consult Cardiology Service for any further recommendations. Continue aspirin 81 mg daily. 2. Hypokalemia. Potassium chloride 40 mEq b.i.d. with repeat potassium level in the a.m. 3. Hypertension. Resume home blood pressure regimen and monitor clinical response. 4. Chronic obstructive pulmonary disease. Continue Symbicort 160/4.5 two puffs b.i.d. 5. Coronary artery disease. Chronic and stable. Continue medical management. No current evidence to suggest acute coronary syndrome. 6. Prophylaxis. SCDs while in bed. Pepcid 20 mg p.o. b.i.d. 7. Code status is full. Surrogate medical decision maker is Umesh Zambrano. Job ID: [id number]
[2019-12-16] MEDS: Diltiazem HCl 125 MG, Admixture Fee 1 EACH in Sodium Chloride 0.9% 100 ML IVPB SCH ×2 (00:13→20:49)
[2019-12-16 05:00] LABS: Band 2 % (5-11); Eosinophils 3 % (0-10); Hemoglobin 11.1 g/dL (12.0-16.0); Lymphocytes 20 % (21-51); MDiff Complete? YES; Mean Corpuscular HGB CONC 31.3 g/dL (32.0-36.0); Mean Corpuscular Volume 89.5 fL (78.0-98.0); Mean Platelet Volume 9.4 fL (7.4-10.4); Monocytes 6 % (0-10); Neutrophil 68 % (42-75); Platelet Count 151 thou/uL (130-400); RBC Distribution Width 14.2 % (11.5-14.5); Red Blood Cell (RBC) Count 3.98 mill/uL (4.20-5.40); White Blood Cell (WBC) Count 8.2 thou/uL (4.8-10.8)
[2019-12-16 05:06] LABS: Anion Gap 11 mmol/L (10-20); BUN (Urea Nitrogen) 16 mg/dL (9.8-20.1); Calc. Creatinine Clearance 126 mL/min (70-130); Calcium 8.6 mg/dL (7.8-10.44); Carbon Dioxide 32 mmol/L (23-31); Chloride 102 mmol/L (98-107); Estimated GFR-MDRD 79; Glucose 123 mg/dL (80-115); Magnesium 2.1 mg/dL (1.6-2.6); Sodium 141 mmol/L (136-145)
[2019-12-16] MEDS: Mometasone 200 MCG/Formoterol 5 MCG 120 PUFF INHALER INH SCH ×2 (07:16→18:58)
[2019-12-16] MEDS: Apixaban 5 MG TAB PO SCH ×2 (08:59→20:51)
[2019-12-16] MEDS: Famotidine 20 MG TAB PO SCH ×2 (09:00→20:50)
[2019-12-16] MEDS: Furosemide 40 MG TAB PO SCH ×2 (09:00→20:51)
[2019-12-16] MEDS: Carvedilol 3.125 MG TAB PO SCH ×2 (09:00→20:51)
[2019-12-16] MEDS: Venlafaxine HCl XR 150 MG CAP PO SCH (09:00)
[2019-12-16] MEDS: Aspirin 81 mg Enteric Coated Tablet PO SCH (09:03)
--- NOTE | 2019-12-16 16:39 | PDOC.HOSPP ---
- Subjective Encounter Date: 12/16/19 Encounter Time: 16:35 Subjective: f/u for A-fib RVR on Cardizem gtt. Remains in A-fib but rate improved. Plans for cardioversion in am. Continue Eliquis. - Objective Vital Signs & Weight: Vital Signs (12 hours) Temp Pulse Resp BP Pulse Ox 12/16/19 15:06 98.0 F 89 20 174/90 H 95 12/16/19 11:10 98.1 F 99 20 140/77 94 L 12/16/19 07:21 98.0 F 96 18 135/75 92 L Weight Weight 230 lb I&O: 12/15/19 12/16/19 12/17/19 06:59 06:59 06:59 Intake Total 912 Output Total 950 Balance -38 Result Diagrams: 12/16/19 04:31 12/16/19 04:31 Additional Labs: Laboratory Tests 12/16/19 12/16/19 04:31 04:31 Magnesium 2.1 TSH 3rd Generation 1.1781 Radiology Reviewed by me: Yes (Echo - EF 40-45%, inf wall hypokinesis, mod-sev LAE, mod-sev TR) EKG Reviewed by me: Yes (Tele - A-fib in 90's) Hospitalist ROS - Medication Medications: Active Medications Generic Name Dose Route Start Last Admin Trade Name Freq PRN Reason Stop Dose Admin Apixaban 5 mg 12/15/19 21:00 12/16/19 08:59 Eliquis PO 5 mg BID ROSEMARY Administration Aspirin 81 mg 12/16/19 09:00 12/16/19 09:03 Ecotrin PO 81 mg DAILY ROSEMARY Administration Atorvastatin Calcium 80 mg 12/15/19 21:00 12/15/19 20:21 Lipitor PO 80 mg HS ROSEMARY Administration Carvedilol 3.125 mg 12/15/19 21:00 12/16/19 09:00 Coreg PO 3.125 mg BID ROSEMARY Administration Famotidine 20 mg 12/15/19 21:00 12/16/19 09:00 Pepcid PO 20 mg BID ROSEMARY Administration Furosemide 40 mg 12/15/19 21:00 12/16/19 09:00 Lasix PO 40 mg BID ROESMARY Administration Diltiazem HCl 125 mg/ 125 mls @ 12.5 mls/hr 12/15/19 17:15 12/16/19 00:13 Miscellaneous Medication 1 IVPB 125 mls each/ Sodium Chloride INF ROSEMARY Administration Protocol Mometasone Furoate/Formoterol Fumar 2 puff 12/15/19 18:30 12/16/19 07:16 Dulera 200 Mcg/5 Mcg Inhaler INH 2 puff BID-RT ROSEMARY Administration Venlafaxine HCl 150 mg 12/16/19 09:00 12/16/19 09:00 Effexor Xr PO 150 mg DAILY ROSEMARY Administration - Exam General Appearance: NAD, awake alert Eye: PERRL, anicteric sclera ENT: normocephalic atraumatic, no oropharyngeal lesions Neck: supple, symmetric, no JVD, no thyromegaly, no lymphadenopathy Heart: no gallops, no rubs, normal peripheral pulses, irregular Heart - other findings: S1,S2 Respiratory: tachypneic Respiratory - other findings: diminished, occ wheeze Gastrointestinal: soft, non-tender, non-distended, normal bowel sounds, no palpable masses Extremities: no cyanosis, no clubbing, 1+ LE edema Skin: normal turgor, no lesions Neurological: cranial nerve grossly intact, no new deficit Musculoskeletal: normal tone, normal strength, no muscle wasting Psychiatric: normal affect, A&O x 3 Hosp A/P (1) Atrial fibrillation with RVR Code(s): I48.91 - UNSPECIFIED ATRIAL FIBRILLATION Status: Acute Plan: Rate improved, continue Diltiazem gtt, plan for CV in am, continue Eliquis (2) CAD (coronary artery disease) Code(s): I25.10 - ATHSCL HEART DISEASE OF [place] CORONARY ARTERY W/O ANG PCTRS Status: Chronic Plan: Chronic, stable, continue ASA/Lipitor/Coreg (3) COPD (chronic obstructive pulmonary disease) Status: Chronic Plan: Continue Symbicort/Albuterol MDI (4) HTN (hypertension) Code(s): I10 - ESSENTIAL (PRIMARY) HYPERTENSION Status: Chronic Qualifiers: Hypertension type: essential hypertension Qualified Code(s): I10 - Essential (primary) hypertension Plan: Continue current BP regimen, serial monitoring (5) Tobacco abuse Code(s): Z72.0 - TOBACCO USE Status: Chronic Plan: Tobacco cessation resources - Plan PT/OT, social services manager, respiratory therapy, out of bed/ambulate, DVT proph w/ SCDs Continue Diltiazem gtt Continue Coreg Continue Eliquis Plan for Cardioversion in am Tobacco cessation resources
--- NOTE | 2019-12-16 17:33 | CON ---
DATE OF CONSULTATION: PRIMARY ROTARY SHEAR CUTTER: Dr. Juan Manuel Jane. REASON FOR CONSULTATION: Recurrent atrial fibrillation with a rapid rate. HISTORY OF PRESENT ILLNESS: Ms. Sherman is a very pleasant 59-year-old woman. She said she has not been feeling well for about a week. She has felt weak and had a lack of energy and also short of breath with low level of activity. She did not have chest pain. She started feeling progressively worse, finally came to the emergency room, was found to be in atrial fibrillation with a rapid rate and has been started on intravenous Cardizem with a bolus and infusion. Past history of atrial fibrillation with a rapid rate. She underwent cardioversion and started Eliquis previously, last Fall. The patient's ejection fraction was noted to be 40% to 45% at that time. The cardioversion was done in May of 2019. She has done well up until about a week ago. PAST HISTORY: 1. Previous coronary artery bypass grafting. 2. She underwent stress testing on 04/02/2019, which revealed ejection fraction 46%. Normal wall motion. Normal perfusion. No ischemia. MEDICATIONS: Please see nurse's notes, included; 1. Aspirin. 2. Apixaban 5 mg twice a day. 3. Carvedilol 3.125 mg twice a day. 4. Diltiazem 60 mg four times a day. 5. Lasix. 6. Lisinopril. ALLERGIES: NONE KNOWN. SOCIAL HISTORY: Works at [employer]. Smokes half pack of cigarettes per day. REVIEW OF SYSTEMS: CONSTITUTIONAL: Positive for weakness and fatigue. No weight gain or loss. VISION: No changes. HEARING: No changes. PULMONARY: No cough or wheezing. Positive for shortness of breath. CARDIAC: Positive for shortness of breath. No chest pain. GASTROINTESTINAL: No nausea, vomiting, or diarrhea. SKIN: No rashes. NEUROLOGIC: No unilateral weakness or numbness. PSYCHIATRIC: No unusual depression or anxiety. PHYSICAL EXAMINATION: GENERAL: This is a pleasant patient. VITAL SIGNS: She is 5 feet and 5 inches tall, 230 pounds. Blood pressure 140/70; pulse is 110, atrial fibrillation. NECK: Veins are normal. Carotid, normal upstrokes. LUNGS: Clear. CARDIAC: Irregularly irregular, tachycardic. ABDOMEN: Soft, nontender, she is obese. EXTREMITIES: No clubbing or cyanosis. Mild edema. LABORATORY DATA: Potassium is 4.0. BNP 566. Troponin 0.027. ASSESSMENT: 1. Recurrent atrial fibrillation with a rapid rate, highly symptomatic. 2. Previous cardioversion. 3. Obesity. 4. Previous bypass surgery. 5. On long-term Eliquis. PLAN: Recommend she undergo repeat cardioversion tomorrow. Discussed risks including stroke, need for pacemaker insertion. She understands and wished to proceed. We would consider arranging for atrial fibrillation ablation at some point. Dr. Jane is out this week. Dr. Medellin is also following the patient as an outpatient. Job ID: [id number]
[2019-12-16] MEDS: Atorvastatin Calcium 40 MG TAB PO SCH (20:50)
[2019-12-17] MEDS: Diltiazem HCl 125 MG, Admixture Fee 1 EACH in Sodium Chloride 0.9% 100 ML IVPB SCH (06:23)
[2019-12-17] MEDS: Mometasone 200 MCG/Formoterol 5 MCG 120 PUFF INHALER INH SCH (07:18)
[2019-12-17] MEDS ORDERED: PROPOFOL 20 ML ONE (07:43)
[2019-12-17] MEDS: Famotidine 20 MG TAB PO SCH (08:29)
[2019-12-17] MEDS: Aspirin 81 mg Enteric Coated Tablet PO SCH (08:30)
[2019-12-17] MEDS: Carvedilol 3.125 MG TAB PO SCH (08:30)
[2019-12-17] MEDS: Furosemide 40 MG TAB PO SCH (08:30)
[2019-12-17] MEDS: Apixaban 5 MG TAB PO SCH (08:30)
[2019-12-17] MEDS: Venlafaxine HCl XR 150 MG CAP PO SCH (08:30)
[2019-12-17] MEDS ORDERED: Potassium Chloride 20 MEQ TAB PO SCH (10:00)
[2019-12-17] MEDS ORDERED: Furosemide 40 MG/4 ML VIAL SLOW IVP SCH (10:00)
--- NOTE | 2019-12-17 10:11 | PRG ---
DATE OF SERVICE: 12/17/2019 SUBJECTIVE: Ms. Sherman underwent successful cardioversion this morning, but is now very short of breath. She is sitting up in the side of the bed having difficulty breathing. OBJECTIVE: VITAL SIGNS: Her blood pressure is 180/90, pulse 90. LUNGS: Clear. CARDIAC: Normal S1, normal S2. ABDOMEN: Soft, nontender. ASSESSMENT: Shortness of breath, probably due to diastolic heart failure. PLAN: Give her a dose of Lasix intravenously and potassium now. Job ID: [id number]
[2019-12-17 11:14] VITALS: BP 139/64; TEMP 98.5
[2019-12-17] MEDS ORDERED: PROPOFOL 200 MG/20 ML VIAL ONE (11:16)
--- NOTE | 2019-12-17 11:34 | PQF ---
CLINICAL DOCUMENTATION IMPROVEMENT CLARIFICATION FORM: ICD-10 Updated PLEASE DO AN ADDENDUM TO THE PROGRESS NOTE WITH ANY DOCUMENTATION UPDATES OR ADDITIONS AND CARRY THROUGH TO DC SUMMARY. THANK YOU. DATE: 12/17/19 ATTN: DR. TEJADA Please exercise your independent, professional judgment in responding to the clarification form. Clinical indicators are provided on the bottom of this form for your review Please check appropriate box(s): HEART FAILURE: A. ACUITY [ ] Acute [ x ] Acute on Chronic [ ] Chronic B. TYPE [ ] Systolic / HFrEF [ x ] Diastolic / HFpEF [ ] Combined Systolic / Diastolic [ ] Hypertensive Heart and Kidney disease [ ] Hypertensive Heart Disease [ ] Hypertensive Kidney Disease [ ] Other diagnosis [ ] Unable to determine In addition, please specify: Present on Admission (POA): [ x ] Yes [ ] No [ ] Unable to determine For continuity of documentation, please document condition throughout progress notes and discharge summary. Thank You. CLINICAL INDICATORS - SIGNS / SYMPTOMS / LABS / RESULTS AND LOCATION IN EMR ER NOTE: "INCREASED LEG SWELLING" PN 12/16 ([facility]): "SHORTNESS OF BREATH, PROBABLY DUE TO DIASTOLIC HEART FAILURE. 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 All Rights Reserved [email or web address]
--- NOTE | 2019-12-17 17:05 | DIS ---
DATE OF ADMISSION: 12/15/2019 DATE OF DISCHARGE: 12/17/2019 DISCHARGE DIAGNOSES: 1. Atrial fibrillation with rapid ventricular response, status post cardioversion with return to sinus mechanism. 2. Kmgjn-xi-fqbhhef diastolic congestive heart failure exacerbation with ejection fraction of 45%. 3. Chronic obstructive pulmonary disease. 4. Hypertension, labile. 5. Tobacco abuse. CONSULTATIONS: Dr. Harris with Cardiology Service. PERTINENT LABORATORY AND X-RAY FINDINGS: Magnesium 2.1. TSH 1.18. CBC showed a white blood cell count of 8.2, hemoglobin 11, hematocrit 36, platelet count 151. Portable chest x-ray dated 12/15/2019 showed no acute cardiopulmonary process. Mild cardiomegaly noted. CT of the brain without contrast dated 12/15/2019 showed no acute intracranial process. 2D transthoracic echocardiogram dated 12/16/2019 showed ejection fraction of 40% to 45%. Severely hypokinetic inferior wall. Okrdbbej-za-aaxvdg left atrial enlargement. Moderate mitral regurgitation. Rotsxouz-er-ttamfw tricuspid regurgitation. PA systolic pressure estimated at 54 mmHg. HOSPITAL COURSE: The patient was admitted to the telemetry unit after presenting with increased shortness of breath and palpitations with atrial fibrillation and associated rapid ventricular response. The patient was initiated on a Cardizem infusion and evaluated by the Cardiology Service. The patient with history of paroxysmal atrial fibrillation with recommendations to undergo cardioversion. The patient was continued on Eliquis 5 mg b.i.d. in addition to continuing on Cardizem infusion with additional Coreg 3.125 mg b.i.d. The patient underwent successful cardioversion on 12/17/2019 with return to sinus mechanism. Post procedure, the patient had increasing shortness of breath, receiving IV Lasix x1 dose. The patient had approximately 400 mL of urine output and symptomatically improved. Likely the patient's presentation consistent with acute exacerbation of chronic systolic congestive heart failure in the context of atrial fibrillation. Overall, the patient had remained clinically stable during the hospital course, tolerating regular oral intake with stable vital signs. I have examined the patient at the time of discharge and discussed followup instructions. The patient verbalized understanding and agreement, ready for discharge on 12/17/2019. DISCHARGE MEDICATIONS: 1. Enteric-coated aspirin 81 mg p.o. daily. 2. Lipitor 80 mg p.o. daily. 3. Symbicort 160/4.5 two puffs inhaled b.i.d. 4. Celebrex 200 mg p.o. daily. 5. Nexium 20 mg p.o. daily. 6. Nitroglycerin 0.4 mg sublingually q.5 minutes p.r.n. chest pain. 7. Venlafaxine extended release 225 mg p.o. daily. 8. Ventolin HFA 2 puffs inhaled q.6 hours p.r.n. 9. Eliquis 5 mg p.o. b.i.d. 10. Coreg 3.125 mg p.o. b.i.d. 11. Diltiazem 30 mg p.o. q.i.d. 12. Lasix 40 mg p.o. b.i.d. 13. Lisinopril 10 mg p.o. daily. FOLLOWUP: The patient may follow up with her primary care provider, Dr. Tamika Mccoy. The patient will follow up with Dr. Juan Manuel Jane within 7 days of discharge. CONDITION ON DISCHARGE: Stable. ACTIVITY: Ad-tank. DIET: Heart healthy. CODE STATUS: Full. DISPOSITION: Home on 12/17/2019. TIME SPENT: Total time preparing and coordinating discharge, 34 minutes. Job ID: [id number] MTDD
--- NOTE | 2019-12-20 19:50 | OP ---
DATE OF PROCEDURE: 12/17/19 SURGEON: Darron Harris M.D. PROCEDURE: Cardioversion. INDICATION: Persistent atrial fibrillation. The patient is brought to the post cath area in the fasting state. She was sedated by anesthesia. She was given 200 joules direct current synchronized energy and converted to sinus rhythm with premature junctional contractions and then sinus rhythm. CONCLUSION: Successful cardioversion.
--- NOTE | 2019-12-20 20:18 | OP ---
DATE OF PROCEDURE: 12/17/19 SURGEON: Darron Harris M.D. PROCEDURE: Cardioversion. INDICATION: Persistent atrial fibrillation associated with diastolic heart failure. The patient is brought to the Recovery area in the fasting state. Sedated by anesthesiologist. She wa s given 200 joules direct current energy synchronized and converted to sinus rhythm. CONCLUSIONS: Successful cardioversion.
== END 2019-12-17 15:47 | disposition home or self-care (01) | DRG 308 ==
LOC: ERS 12:31 → 2NO 15:36
PROVIDERS: ADMIT Family Medicine; ATTEND Family Medicine
PROC: 5A2204Z Restoration of Cardiac Rhythm, Single (ICD-10-PCS; principal; 2019-12-17)
DX: I48.19 Other persistent atrial fibrillation (principal); I50.33 Acute on chronic diastolic (congestive) heart failure; F32.9 Major depressive disorder, single episode, unspecified; I11.0 Hypertensive heart disease with heart failure; M19.90 Unspecified osteoarthritis, unspecified site; J44.9 Chronic obstructive pulmonary disease, unspecified; F17.210 Nicotine dependence, cigarettes, uncomplicated; G47.00 Insomnia, unspecified; E87.6 Hypokalemia; E66.9 Obesity, unspecified; I48.0 Paroxysmal atrial fibrillation; I25.10 Atherosclerotic heart disease of native coronary artery without angina pectoris; Z79.82 Long term (current) use of aspirin; Z79.51 Long term (current) use of inhaled steroids; Z79.01 Long term (current) use of anticoagulants; Z79.899 Other long term (current) drug therapy; Z95.1 Presence of aortocoronary bypass graft; Z68.37 Body mass index [BMI] 37.0-37.9, adult
CPT/HCPCS: 36415; 80048; 83735; 84443; 85007; 85027; 92960; 93005; 93306; 94760; 96365; 96366; J0360; J1940; J2704; J3490

== ENCOUNTER 2020-11-14 21:47 | Inpatient (IN) | payer BC ==
[2020-11-14 23:10] LABS: #Eosinphils 0.1 thou/uL (0.0-0.7); #Lymphocytes 1.2 thou/uL (1.20-3.40); #Neutrophils 8.8 thou/uL (1.40-6.50); %Basophils 0.3 % (0.0-1.0); %Eosinophils 1.1 % (0.0-10.0); %Lymphocytes 10.6 % (21.0-51.0); %Monocytes 9.1 % (0.0-10.0); %Neutrophils 78.9 % (42.0-75.0); Hemoglobin 12.1 g/dL (12.0-16.0); Mean Corpuscular Hemoglobin 28.9 pg (27.0-31.0); Mean Corpuscular Volume 87.5 fL (78.0-98.0); Mean Platelet Volume 10.1 fL (7.4-10.4); Platelet Count 141 thou/uL (130-400); Red Blood Cell (RBC) Count 4.19 mill/uL (4.20-5.40); White Blood Cell (WBC) Count 11.2 thou/uL (4.8-10.8)
[2020-11-14 23:12] LABS: Actual Bicarbonate (HCO3v) 27 mEq/L (22-28); Analyzer IN Cardio ER; Base Excess 2.9 mEq/L (-2.0 to +3.0); Calcium, Ionized (venous) 0.91 mmol/L (1.16-1.32); Chloride (VBG) 97 mmol/L (98-106); Potassium (VBG) 3.33 mmol/L (3.70-5.30); Sodium 135.5 mmol/L (133-146); pH (venous) 7.47 (7.32-7.43)
[2020-11-14 23:34] LABS: ALT (SGPT) 26 U/L (8-55); AST (SGOT) 23 U/L (5-34); Albumin 3.4 g/dL (3.4-4.8); Alkaline Phosphatase 129 U/L (40-110); Anion Gap 18 mmol/L (10-20); BUN (Urea Nitrogen) 50 mg/dL (9.8-20.1); Bilirubin, Total 0.2 mg/dL (0.2-1.2); Calc. Creatinine Clearance 0 mL/min (70-130); Calcium 8.3 mg/dL (7.8-10.44); Carbon Dioxide 26 mmol/L (23-31); Chloride 97 mmol/L (98-107); Globulin 3.1 g/dL (2.4-3.5); Glucose 127 mg/dL (80-115); Potassium 3.3 mmol/L (3.5-5.1); Protein, Total 6.5 g/dL (5.8-8.1); Sodium 138 mmol/L (136-145)
[2020-11-14 23:54] LABS: CKMB 0.9 ng/mL (0-6.6)
[2020-11-15] MEDS ORDERED: Aspirin Chewable 81 MG TAB ONE (00:25)
[2020-11-15] MEDS ORDERED: Acetaminophen 325 MG TAB PO PRN (01:12)
[2020-11-15] MEDS ORDERED: Ondansetron PF 4 MG/2 ML Vial IVP PRN (01:12)
[2020-11-15] MEDS ORDERED: Sodium Chloride 0.9% 1,000 ML IV SCH (01:45)
[2020-11-15 02:03] LABS: #Basophils 0.1 thou/uL (0.0-0.2); #Eosinphils 0.2 thou/uL (0.0-0.7); #Lymphocytes 1.2 thou/uL (1.20-3.40); #Monocytes 0.7 thou/uL (0.11-0.59); #Neutrophils 7.5 thou/uL (1.40-6.50); %Basophils 0.6 % (0.0-1.0); %Eosinophils 1.6 % (0.0-10.0); %Lymphocytes 12.3 % (21.0-51.0); %Monocytes 7.4 % (0.0-10.0); %Neutrophils 78.1 % (42.0-75.0); Hemoglobin 11.6 g/dL (12.0-16.0); Mean Corpuscular HGB CONC 31.4 g/dL (32.0-36.0); Mean Corpuscular Hemoglobin 27.2 pg (27.0-31.0); Mean Corpuscular Volume 86.6 fL (78.0-98.0); Mean Platelet Volume 9.9 fL (7.4-10.4); Platelet Count 146 thou/uL (130-400); RBC Distribution Width 16.2 % (11.5-14.5); Red Blood Cell (RBC) Count 4.27 mill/uL (4.20-5.40); White Blood Cell (WBC) Count 9.6 thou/uL (4.8-10.8)
[2020-11-15] MEDS ORDERED: Potassium Chloride 20 MEQ TAB PO SCH (02:15)
[2020-11-15 02:18] LABS: Lactic Acid 2.1 mmol/L (0.5-2.2)
[2020-11-15 02:27] LABS: Troponin I 0.047 ng/mL (< 0.028)
[2020-11-15 02:55] LABS: Chloride 96 mmol/L (98-107); Potassium 3.7 mmol/L (3.5-5.1); Sodium 138 mmol/L (136-145)
[2020-11-15 02:56] LABS: Glucose 140 mg/dL (80-115)
[2020-11-15 02:58] LABS: Anion Gap 20 mmol/L (10-20); Carbon Dioxide 26 mmol/L (23-31)
[2020-11-15 03:00] LABS: BUN (Urea Nitrogen) 52 mg/dL (9.8-20.1); Calc. Creatinine Clearance 0 mL/min (70-130)
[2020-11-15 03:04] LABS: Calcium 9.2 mg/dL (7.8-10.44)
[2020-11-15] MEDS ORDERED: Potassium Chloride 20 MEQ TAB ONE (04:51)
[2020-11-15 06:20] LABS: Troponin I 0.067 ng/mL (< 0.028)
[2020-11-15 07:32] LABS: #Basophils 0.1 thou/uL (0.0-0.2); #Eosinphils 0.2 thou/uL (0.0-0.7); #Lymphocytes 1.4 thou/uL (1.20-3.40); #Monocytes 0.8 thou/uL (0.11-0.59); #Neutrophils 5.5 thou/uL (1.40-6.50); %Basophils 0.7 % (0.0-1.0); %Eosinophils 2.1 % (0.0-10.0); %Lymphocytes 17.4 % (21.0-51.0); %Monocytes 9.8 % (0.0-10.0); %Neutrophils 69.9 % (42.0-75.0); Hemoglobin 10.9 g/dL (12.0-16.0); Mean Corpuscular HGB CONC 30.9 g/dL (32.0-36.0); Mean Corpuscular Hemoglobin 26.9 pg (27.0-31.0); Mean Platelet Volume 9.6 fL (7.4-10.4); Platelet Count 143 thou/uL (130-400); RBC Distribution Width 16.2 % (11.5-14.5); Red Blood Cell (RBC) Count 4.06 mill/uL (4.20-5.40); White Blood Cell (WBC) Count 7.9 thou/uL (4.8-10.8)
[2020-11-15 07:56] LABS: Anion Gap 16 mmol/L (10-20); BUN (Urea Nitrogen) 56 mg/dL (9.8-20.1); Calc. Creatinine Clearance 0 mL/min (70-130); Calcium 8.6 mg/dL (7.8-10.44); Carbon Dioxide 30 mmol/L (23-31); Cardiac Risk 4.1 (Less than 4.5); Chloride 96 mmol/L (98-107); Cholesterol 179 mg/dl (< 200 Desired); Glucose 115 mg/dL (80-115); HDL Cholesterol 44 mg/dL (>60 Neg Risk); LDL Cholesterol, Calculated 110 mg/dL; Magnesium 2.2 mg/dL (1.6-2.6); Potassium 3.8 mmol/L (3.5-5.1); Sodium 138 mmol/L (136-145); Triglycerides 125 mg/dL (Less than 150)
[2020-11-15] MEDS ORDERED: Amiodarone 200 MG TAB PO SCH (10:15)
[2020-11-15 11:18] LABS: SARS-CoV-2 PCR by NAA Not Detected (NotDetected)
[2020-11-15 13:24] LABS: Bilirubin Negative (Negative); Blood, Urine 1+ (Negative); Clarity Clear (Clear); Glucose, Urine (Dipstick) Normal (Negative); Ketone, Urine Negative (Negative); Leukocyte 25 Leu/uL (Negative); Nitrite Negative (Negative); Protein, Urine (Dipstick) 20 mg/dL (Neg-Trace); RBC/HPF 0-3 HPF (0-3); Specific Gravity, Urine 1.018 (1.002-1.036); Urobilinogen Normal mg/dL (Less than 2)
[2020-11-15 13:27] LABS: Bacteria/HPF 1+ HPF (None Seen)
[2020-11-15 15:45] VITALS: BMI 37.5
[2020-11-15] MEDS: cefTRIAXone\\ROCEPHIN 1 GM in Sodium Chloride 0.9% 100 ML IVPB SCH (16:36)
[2020-11-15] MEDS: Mometasone 200 MCG/Formoterol 5 MCG 120 PUFF INHALER INH SCH (18:03)
[2020-11-15 19:07] LABS: Bacteria/HPF None Seen HPF (None Seen); Bilirubin Negative (Negative); Blood, Urine Negative (Negative); Clarity Clear (Clear); Glucose, Urine (Dipstick) 30 mg/dL (Negative); Ketone, Urine Negative (Negative); Leukocyte Negative Leu/uL (Negative); Nitrite Negative (Negative); Protein, Urine (Dipstick) Negative (Neg-Trace); RBC/HPF 0-3 HPF (0-3); Specific Gravity, Urine 1.016 (1.002-1.036); Squamous Epithelial 0-3 HPF (0-3); Urobilinogen Normal mg/dL (Less than 2); WBC/HPF 0-3 HPF (0-3); pH, Urine 5.5 (5.0-9.0)
[2020-11-15 19:08] LABS: Urine Culture Reflex No No
[2020-11-15 19:29] LABS: Creatinine, Urine 67.73 mg/dL (47-110)
[2020-11-15] MEDS: Apixaban 2.5 MG TAB PO SCH (20:53)
[2020-11-15] MEDS: Amiodarone 200 MG TAB PO SCH (20:53)
[2020-11-15] MEDS: Carvedilol 3.125 MG TAB PO SCH (20:53)
[2020-11-15] MEDS ORDERED: Apixaban 5 MG TAB PO SCH ×2 (21:00)
[2020-11-15] MEDS ORDERED: Carvedilol 3.125 MG TAB PO SCH (21:00)
[2020-11-15] MEDS ORDERED: Non-Formulary Item 1 EACH (Budesonide-Formoterol [Symbicort 160-4.5] 160 MG/4.5 MG Aer) INH SCH (21:00)
[2020-11-16 04:46] LABS: Reticulocyte Count 0.7 % (0.5-1.5)
[2020-11-16 05:08] LABS: Iron 80 ug/dL (50-170); Iron Binding Capacity, Total 370 mcg/dL (265-497)
[2020-11-16 05:30] LABS: Ferritin 70.94 ng/mL (10-291)
[2020-11-16 06:37] LABS: Albumin 3.6 g/dL (3.4-4.8); Anion Gap 16 mmol/L (10-20); BUN (Urea Nitrogen) 39 mg/dL (9.8-20.1); BUN/Creatinine Ratio 26.53; Calc. Creatinine Clearance 63 mL/min (70-130); Calcium 8.9 mg/dL (7.8-10.44); Carbon Dioxide 27 mmol/L (23-31); Chloride 100 mmol/L (98-107); Glucose 112 mg/dL (80-115); Phosphorus 3.7 mg/dL (2.3-4.7); Potassium 3.8 mmol/L (3.5-5.1); Sodium 139 mmol/L (136-145)
[2020-11-16] MEDS: Mometasone 200 MCG/Formoterol 5 MCG 120 PUFF INHALER INH SCH ×2 (07:40→18:10)
[2020-11-16] MEDS ORDERED: VENLAFAXINE HCL 225 MG PO SCH (09:00)
[2020-11-16] MEDS ORDERED: Venlafaxine HCl 37.5 MG TAB PO SCH (09:00)
[2020-11-16] MEDS ORDERED: Clopidogrel Bisulfate 75 MG TAB PO SCH ×2 (09:00→18:00)
[2020-11-16] MEDS: Amiodarone 200 MG TAB PO SCH ×2 (09:42→20:20)
[2020-11-16] MEDS: Carvedilol 3.125 MG TAB PO SCH ×2 (09:42→20:20)
[2020-11-16] MEDS: Venlafaxine HCl 37.5 MG TAB PO SCH (09:42)
[2020-11-16] MEDS: Apixaban 2.5 MG TAB PO SCH (09:42)
[2020-11-16] MEDS: cefTRIAXone\\ROCEPHIN 1 GM in Sodium Chloride 0.9% 100 ML IVPB SCH (15:58)
[2020-11-16] MEDS ORDERED: Nitroglycerin 0.4 MG TAB (25 Tab Bottle) SL PRN (18:59)
[2020-11-16 19:59] LABS: #Eosinphils 0.3 thou/uL (0.0-0.7); #Lymphocytes 1.4 thou/uL (1.20-3.40); #Monocytes 0.6 thou/uL (0.11-0.59); #Neutrophils 4.7 thou/uL (1.40-6.50); %Basophils 0.5 % (0.0-1.0); %Eosinophils 3.7 % (0.0-10.0); %Lymphocytes 19.6 % (21.0-51.0); %Monocytes 8.1 % (0.0-10.0); %Neutrophils 68.2 % (42.0-75.0); Mean Corpuscular HGB CONC 31.1 g/dL (32.0-36.0); Mean Corpuscular Hemoglobin 27.3 pg (27.0-31.0); Mean Corpuscular Volume 87.7 fL (78.0-98.0); Mean Platelet Volume 10.1 fL (7.4-10.4); Platelet Count 118 thou/uL (130-400); RBC Distribution Width 15.7 % (11.5-14.5); Red Blood Cell (RBC) Count 4.41 mill/uL (4.20-5.40); White Blood Cell (WBC) Count 6.9 thou/uL (4.8-10.8)
[2020-11-16] MEDS: Apixaban 5 MG TAB PO SCH (20:20)
[2020-11-16] MEDS ORDERED: Atorvastatin Calcium 40 MG TAB PO SCH (21:00)
[2020-11-17 04:58] LABS: Albumin 3.3 g/dL (3.4-4.8); Anion Gap 15 mmol/L (10-20); BUN (Urea Nitrogen) 26 mg/dL (9.8-20.1); BUN/Creatinine Ratio 23.21; Calc. Creatinine Clearance 83 mL/min (70-130); Carbon Dioxide 27 mmol/L (23-31); Chloride 101 mmol/L (98-107); Glucose 121 mg/dL (80-115); Phosphorus 3.2 mg/dL (2.3-4.7); Potassium 3.7 mmol/L (3.5-5.1); Sodium 139 mmol/L (136-145)
[2020-11-17] MEDS: Mometasone 200 MCG/Formoterol 5 MCG 120 PUFF INHALER INH SCH ×2 (08:22→20:07)
[2020-11-17] MEDS ORDERED: Amlodipine 5 MG TAB PO SCH (09:00)
[2020-11-17] MEDS: Carvedilol 3.125 MG TAB PO SCH ×2 (09:57→20:55)
[2020-11-17] MEDS: Apixaban 5 MG TAB PO SCH ×2 (09:57→20:55)
[2020-11-17] MEDS: Amiodarone 200 MG TAB PO SCH ×2 (09:57→20:55)
[2020-11-17] MEDS: Atorvastatin Calcium 40 MG TAB PO SCH (09:57)
[2020-11-17] MEDS: Clopidogrel Bisulfate 75 MG TAB PO SCH (09:58)
[2020-11-17] MEDS: Senokot S 8.6-50 MG TAB PO SCH (09:58)
[2020-11-17] MEDS: Venlafaxine HCl 37.5 MG TAB PO SCH (09:58)
[2020-11-18 04:35] LABS: Albumin 3.4 g/dL (3.4-4.8); Anion Gap 13 mmol/L (10-20); BUN (Urea Nitrogen) 19 mg/dL (9.8-20.1); BUN/Creatinine Ratio 18.27; Calc. Creatinine Clearance 88 mL/min (70-130); Calcium 8.8 mg/dL (7.8-10.44); Carbon Dioxide 29 mmol/L (23-31); Chloride 101 mmol/L (98-107); Glucose 131 mg/dL (80-115); Phosphorus 3.7 mg/dL (2.3-4.7); Potassium 3.8 mmol/L (3.5-5.1); Sodium 139 mmol/L (136-145)
[2020-11-18] MEDS: Mometasone 200 MCG/Formoterol 5 MCG 120 PUFF INHALER INH SCH (07:25)
[2020-11-18] MEDS: Amiodarone 200 MG TAB PO SCH (08:44)
[2020-11-18] MEDS: Senokot S 8.6-50 MG TAB PO SCH (08:45)
[2020-11-18] MEDS: Clopidogrel Bisulfate 75 MG TAB PO SCH (08:45)
[2020-11-18] MEDS: Apixaban 5 MG TAB PO SCH (08:45)
[2020-11-18] MEDS: Atorvastatin Calcium 40 MG TAB PO SCH (08:45)
[2020-11-18] MEDS: Carvedilol 3.125 MG TAB PO SCH (08:46)
[2020-11-18] MEDS: Venlafaxine HCl 37.5 MG TAB PO SCH (08:46)
[2020-11-18] MEDS ORDERED: Amlodipine 10 MG TAB PO SCH (09:00)
[2020-11-18 11:31] VITALS: BP 164/74; TEMP 98.2
[2020-11-19] MEDS ORDERED: Torsemide 20 MG TAB PO SCH (09:00)
== END 2020-11-18 13:25 | disposition home or self-care (01) | DRG 682 ==
LOC: ERS 21:47 → ERHOLD 11-15 00:49 → 2NO 11-15 01:22
PROVIDERS: ADMIT Internal Medicine; ATTEND Internal Medicine
DX: N17.9 Acute kidney failure, unspecified (principal); I21.A1 Myocardial infarction type 2; N39.0 Urinary tract infection, site not specified; I50.42 Chronic combined systolic (congestive) and diastolic (congestive) heart failure; E87.3 Alkalosis; I95.9 Hypotension, unspecified; K21.9 Gastro-esophageal reflux disease without esophagitis; I11.0 Hypertensive heart disease with heart failure; J44.9 Chronic obstructive pulmonary disease, unspecified; I48.91 Unspecified atrial fibrillation; M19.90 Unspecified osteoarthritis, unspecified site; F17.210 Nicotine dependence, cigarettes, uncomplicated; W19.XXXA Unspecified fall, initial encounter; E87.6 Hypokalemia; R31.9 Hematuria, unspecified; D50.9 Iron deficiency anemia, unspecified; I25.10 Atherosclerotic heart disease of native coronary artery without angina pectoris; E66.9 Obesity, unspecified; T50.2X5A Adverse effect of carbonic-anhydrase inhibitors, benzothiadiazides and other diuretics, initial encounter; E86.0 Dehydration; F32.9 Major depressive disorder, single episode, unspecified; Z68.37 Body mass index [BMI] 37.0-37.9, adult; Z95.1 Presence of aortocoronary bypass graft; Z79.82 Long term (current) use of aspirin; Z79.01 Long term (current) use of anticoagulants; Z82.49 Family history of ischemic heart disease and other diseases of the circulatory system; Z95.5 Presence of coronary angioplasty implant and graft
CPT/HCPCS: 36415; 70450; 71045; 76770; 80048; 80053; 80061; 80069; 81003; 81015; 82550; 82553; 82570; 82607; 82728; 82746; 82805; 83540; 83550; 83605; 83735; 83880; 84156; 84300; 84443; 84484; 84540; 85025; 85046; 87635; 93005; 93306; 93798; 93880; 94760; J0696; J3490; U0003; U0005

== ENCOUNTER 2021-05-19 19:27 | Inpatient (IN) | payer BC ==
[2021-05-19] MEDS ORDERED: Bisacodyl 5 MG TAB PO PRN (21:31)
[2021-05-19] MEDS ORDERED: Senokot S 8.6-50 MG TAB PO PRN (21:31)
[2021-05-19] MEDS ORDERED: HYDROcodone/Acetaminophen 7.5/325 mg Tablet PO PRN (21:31)
[2021-05-19] MEDS ORDERED: Ondansetron PF 4 MG/2 ML Vial IVP PRN (21:31)
[2021-05-19] MEDS ORDERED: HYDROcodone/Acetaminophen 5/325 mg Tablet PO PRN (21:31)
[2021-05-19] MEDS ORDERED: Acetaminophen 325 MG TAB PO PRN (21:31)
[2021-05-19] MEDS ORDERED: Melatonin 3 MG TAB PO PRN (21:37)
[2021-05-19] MEDS ORDERED: hydrALAZINE 20 MG/ML VIAL SLOW IVP PRN (21:37)
[2021-05-19] MEDS ORDERED: Famotidine 20 MG TAB PO SCH (22:00)
[2021-05-19] MEDS ORDERED: ALPRAZolam 0.25 MG TAB PO PRN (22:37)
[2021-05-19] MEDS ORDERED: Nitroglycerin 0.4 MG TAB (25 Tab Bottle) SL PRN (22:37)
[2021-05-19 22:54] VITALS: BMI 40.2
[2021-05-19] MEDS ORDERED: Albuterol Sulfate 2.5 mg/3 ml Neb NEB PRN (22:55)
[2021-05-19] MEDS ORDERED: hydrALAZINE 25 MG TAB PO SCH (23:00)
[2021-05-19] MEDS ORDERED: Apixaban 5 MG TAB PO SCH (23:00)
[2021-05-19 23:17] LABS: ALT (SGPT) 20 U/L (8-55); AST (SGOT) 20 U/L (5-34); Albumin 3.8 g/dL (3.4-4.8); Alkaline Phosphatase 101 U/L (40-110); Anion Gap 15 mmol/L (10-20); BUN (Urea Nitrogen) 45 mg/dL (9.8-20.1); Bilirubin, Total 0.4 mg/dL (0.2-1.2); Calc. Creatinine Clearance 42 mL/min (70-130); Calcium 9.5 mg/dL (7.8-10.44); Carbon Dioxide 33 mmol/L (23-31); Chloride 90 mmol/L (98-107); Globulin 3.4 g/dL (2.4-3.5); Glucose 120 mg/dL (80-115); Potassium 3.3 mmol/L (3.5-5.1); Protein, Total 7.2 g/dL (5.8-8.1); Sodium 135 mmol/L (136-145)
[2021-05-20] MEDS ORDERED: Potassium Chloride 20 MEQ TAB PO SCH (01:30)
[2021-05-20 04:37] LABS: Creatinine, Urine 109.53 mg/dL (47-110)
[2021-05-20 06:44] LABS: #Basophils 0.1 thou/uL (0.0-0.2); #Eosinphils 0.2 thou/uL (0.0-0.7); #Lymphocytes 1.4 thou/uL (1.20-3.40); #Monocytes 0.7 thou/uL (0.11-0.59); %Basophils 0.6 % (0.0-1.0); %Eosinophils 2.3 % (0.0-10.0); %Lymphocytes 14.7 % (21.0-51.0); %Monocytes 7.6 % (0.0-10.0); %Neutrophils 74.8 % (42.0-75.0); Mean Corpuscular HGB CONC 32.8 g/dL (32.0-36.0); Mean Corpuscular Hemoglobin 32.3 pg (27.0-31.0); Mean Corpuscular Volume 98.4 fL (78.0-98.0); Mean Platelet Volume 9.2 fL (7.4-10.4); Platelet Count 167 thou/uL (130-400); RBC Distribution Width 13.6 % (11.5-14.5); Red Blood Cell (RBC) Count 4.03 mill/uL (4.20-5.40); White Blood Cell (WBC) Count 9.4 thou/uL (4.8-10.8)
[2021-05-20] MEDS ORDERED: Baclofen 10 MG TAB PO PRN (07:44)
[2021-05-20] MEDS ORDERED: hydrALAZINE 25 MG TAB PO SCH (09:00)
[2021-05-20] MEDS ORDERED: Lisinopril 20 MG TAB PO SCH (09:00)
[2021-05-20] MEDS: Potassium Chloride 20 MEQ TAB PO SCH (10:30)
[2021-05-20] MEDS: Amiodarone 200 MG TAB PO SCH (10:31)
[2021-05-20] MEDS: Apixaban 5 MG TAB PO SCH ×2 (10:32→20:26)
[2021-05-20] MEDS: Docusate 100 MG CAP PO SCH (10:32)
[2021-05-20] MEDS: Clopidogrel Bisulfate 75 MG TAB PO SCH (10:32)
[2021-05-20] MEDS: Carvedilol 6.25 MG TAB PO SCH ×2 (10:32→20:26)
[2021-05-20] MEDS: Venlafaxine HCl XR 75 MG CAP PO SCH (10:42)
[2021-05-20] MEDS: Mometasone 200 MCG/Formoterol 5 MCG 120 PUFF INHALER INH SCH ×2 (11:14→21:21)
[2021-05-20 16:17] LABS: Albumin 3.7 g/dL (3.4-4.8); Anion Gap 13 mmol/L (10-20); BUN (Urea Nitrogen) 39 mg/dL (9.8-20.1); BUN/Creatinine Ratio 23.21; Calc. Creatinine Clearance 58 mL/min (70-130); Calcium 9.4 mg/dL (7.8-10.44); Carbon Dioxide 31 mmol/L (23-31); Chloride 95 mmol/L (98-107); Glucose 142 mg/dL (80-115); Phosphorus 3.3 mg/dL (2.3-4.7); Potassium 3.7 mmol/L (3.5-5.1); Sodium 135 mmol/L (136-145)
[2021-05-20] MEDS: Atorvastatin Calcium 40 MG TAB PO SCH (20:26)
[2021-05-20] MEDS ORDERED: Famotidine 20 MG TAB PO SCH (21:00)
[2021-05-21 05:43] LABS: #Eosinphils 0.2 thou/uL (0.0-0.7); #Lymphocytes 1.5 thou/uL (1.20-3.40); #Monocytes 0.8 thou/uL (0.11-0.59); #Neutrophils 4.8 thou/uL (1.40-6.50); %Basophils 0.6 % (0.0-1.0); %Eosinophils 2.4 % (0.0-10.0); %Monocytes 11.2 % (0.0-10.0); %Neutrophils 64.9 % (42.0-75.0); Mean Corpuscular HGB CONC 32.9 g/dL (32.0-36.0); Mean Corpuscular Hemoglobin 32.7 pg (27.0-31.0); Mean Corpuscular Volume 99.4 fL (78.0-98.0); Mean Platelet Volume 9.3 fL (7.4-10.4); Platelet Count 159 thou/uL (130-400); RBC Distribution Width 13.6 % (11.5-14.5); Red Blood Cell (RBC) Count 3.68 mill/uL (4.20-5.40); White Blood Cell (WBC) Count 7.3 thou/uL (4.8-10.8)
[2021-05-21 06:09] LABS: Anion Gap 14 mmol/L (10-20); BUN (Urea Nitrogen) 32 mg/dL (9.8-20.1); Calc. Creatinine Clearance 78 mL/min (70-130); Calcium 9.4 mg/dL (7.8-10.44); Carbon Dioxide 32 mmol/L (23-31); Chloride 94 mmol/L (98-107); Glucose 133 mg/dL (80-115); Potassium 3.8 mmol/L (3.5-5.1); Sodium 136 mmol/L (136-145)
[2021-05-21] MEDS: Mometasone 200 MCG/Formoterol 5 MCG 120 PUFF INHALER INH SCH ×2 (06:45→20:17)
[2021-05-21] MEDS: Clopidogrel Bisulfate 75 MG TAB PO SCH (08:49)
[2021-05-21] MEDS: Carvedilol 6.25 MG TAB PO SCH ×2 (08:49→20:05)
[2021-05-21] MEDS: Amiodarone 200 MG TAB PO SCH (08:49)
[2021-05-21] MEDS: Apixaban 5 MG TAB PO SCH ×2 (08:49→20:06)
[2021-05-21] MEDS: Potassium Chloride 20 MEQ TAB PO SCH (08:49)
[2021-05-21] MEDS: Venlafaxine HCl XR 75 MG CAP PO SCH (08:50)
[2021-05-21] MEDS: Docusate 100 MG CAP PO SCH (08:50)
[2021-05-21] MEDS ORDERED: Lisinopril 10 MG TAB PO SCH ×2 (13:45→21:00)
[2021-05-21] MEDS: Lisinopril 10 MG TAB PO SCH (20:06)
[2021-05-21] MEDS: Atorvastatin Calcium 40 MG TAB PO SCH (20:06)
[2021-05-22] MEDS: Mometasone 200 MCG/Formoterol 5 MCG 120 PUFF INHALER INH SCH (06:40)
[2021-05-22 07:45] LABS: Albumin 3.8 g/dL (3.4-4.8); Anion Gap 14 mmol/L (10-20); BUN (Urea Nitrogen) 24 mg/dL (9.8-20.1); BUN/Creatinine Ratio 23.08; Calc. Creatinine Clearance 94 mL/min (70-130); Calcium 9.6 mg/dL (7.8-10.44); Carbon Dioxide 31 mmol/L (23-31); Chloride 97 mmol/L (98-107); Glucose 124 mg/dL (80-115); Phosphorus 3.5 mg/dL (2.3-4.7); Potassium 4.3 mmol/L (3.5-5.1); Sodium 138 mmol/L (136-145)
[2021-05-22] MEDS: Docusate 100 MG CAP PO SCH (08:09)
[2021-05-22] MEDS: Potassium Chloride 20 MEQ TAB PO SCH (08:09)
[2021-05-22] MEDS: Lisinopril 10 MG TAB PO SCH (08:09)
[2021-05-22] MEDS: Amiodarone 200 MG TAB PO SCH (08:10)
[2021-05-22] MEDS: Apixaban 5 MG TAB PO SCH (08:10)
[2021-05-22] MEDS: Clopidogrel Bisulfate 75 MG TAB PO SCH (08:10)
[2021-05-22] MEDS: Carvedilol 6.25 MG TAB PO SCH (08:10)
[2021-05-22] MEDS: Venlafaxine HCl XR 75 MG CAP PO SCH (08:19)
[2021-05-22] MEDS ORDERED: Lisinopril 10 MG TAB PO SCH (10:15)
[2021-05-22 12:29] VITALS: BP 146/65; TEMP 98.5
[2021-05-22] MEDS ORDERED: Lisinopril 20 MG TAB PO SCH (21:00)
== END 2021-05-22 15:25 | disposition home or self-care (01) | DRG 291 ==
LOC: 2SW 21:05 → OBSVTOIN 05-20 13:46
PROVIDERS: ADMIT Student in an Organized Health Care Education/Training Program; ATTEND Internal Medicine
DX: I13.0 Hypertensive heart and chronic kidney disease with heart failure and stage 1 through stage 4 chronic kidney disease, or unspecified chronic kidney disease (principal); I50.33 Acute on chronic diastolic (congestive) heart failure; N17.9 Acute kidney failure, unspecified; N18.4 Chronic kidney disease, stage 4 (severe); F17.210 Nicotine dependence, cigarettes, uncomplicated; I25.10 Atherosclerotic heart disease of native coronary artery without angina pectoris; E78.00 Pure hypercholesterolemia, unspecified; E86.0 Dehydration; E66.01 Morbid (severe) obesity due to excess calories; T50.2X5A Adverse effect of carbonic-anhydrase inhibitors, benzothiadiazides and other diuretics, initial encounter; F32.9 Major depressive disorder, single episode, unspecified; G89.29 Other chronic pain; J44.9 Chronic obstructive pulmonary disease, unspecified; I48.0 Paroxysmal atrial fibrillation; K21.9 Gastro-esophageal reflux disease without esophagitis; M19.90 Unspecified osteoarthritis, unspecified site; E87.6 Hypokalemia; E86.9 Volume depletion, unspecified; I95.2 Hypotension due to drugs; T50.905A Adverse effect of unspecified drugs, medicaments and biological substances, initial encounter; Z68.41 Body mass index [BMI] 40.0-44.9, adult; Z95.1 Presence of aortocoronary bypass graft; Z95.5 Presence of coronary angioplasty implant and graft; I25.2 Old myocardial infarction; Z88.8 Allergy status to other drugs, medicaments and biological substances; Z79.01 Long term (current) use of anticoagulants; Z79.51 Long term (current) use of inhaled steroids; Z79.899 Other long term (current) drug therapy
CPT/HCPCS: 36415; 80048; 80069; 82570; 83835; 84156; 84300; 84540; 85025; 93306; 93798; G0378

== ENCOUNTER 2021-06-02 03:31 | Inpatient (IN) | payer BC ==
[2021-06-02] MEDS ORDERED: Acetaminophen 325 MG TAB PO PRN (05:00)
[2021-06-02] MEDS ORDERED: Ondansetron ODT 4 MG TAB SL PRN (05:00)
[2021-06-02] MEDS ORDERED: Ondansetron PF 4 MG/2 ML Vial IVP PRN (05:00)
[2021-06-02] MEDS ORDERED: Acetaminophen 650 MG Suppository PR PRN (05:30)
[2021-06-02 05:37] VITALS: BMI 42.3
[2021-06-02] MEDS ORDERED: methylPREDNISolone Sod Succ 40 MG VIAL IVP SCH (05:45)
[2021-06-02] MEDS ORDERED: Electrolyte Replacement Protocol 1 EACH FS SCH (06:45)
[2021-06-02] MEDS ORDERED: Electrolyte Replacement Protocol FS PRN (06:45)
[2021-06-02] MEDS ORDERED: Nitroglycerin 0.4 MG TAB (25 Tab Bottle) SL PRN (07:05)
[2021-06-02] MEDS ORDERED: Baclofen 10 MG TAB PO PRN (07:05)
[2021-06-02 08:59] LABS: Actual Bicarbonate (HCO3a) 38.6 mEq/L (22-28); Carboxyhemoglobin (COHb) 2.4 gm% (0.0-3.0); Hemoglobin (Hb) 12.4 g/dL (12.0-16.0); O2 Tension (PaO2), arterial 78.6 mmHg (> 80.0); pH, Arterial 7.38 (7.35-7.45)
[2021-06-02] MEDS ORDERED: Doxycycline 100 MG CAP PO SCH (09:00)
[2021-06-02] MEDS ORDERED: Furosemide 40 MG/4 ML VIAL SLOW IVP SCH (09:00)
[2021-06-02] MEDS ORDERED: Aspirin 325 MG TAB PO SCH (09:00)
[2021-06-02 09:01] LABS: ALV-art Gradient 38.415 mmHg (0-20); CO2 Tension 66.1 mmHg (35.0-45.0); Puncture Site LRA
[2021-06-02] MEDS ORDERED: Mometasone 200 MCG/Formoterol 5 MCG 120 PUFF INHALER INH SCH (09:15)
[2021-06-02] MEDS ORDERED: Magnesium 2 GM/50 ML 2 GM in Premix Bag 1 BAG IVPB SCH (09:30)
[2021-06-02] MEDS: Aspirin 81 mg Enteric Coated Tablet PO SCH (09:32)
[2021-06-02] MEDS: Apixaban 5 MG TAB PO SCH ×2 (09:32→21:08)
[2021-06-02] MEDS: Amiodarone 200 MG TAB PO SCH (09:32)
[2021-06-02] MEDS: Docusate 100 MG CAP PO SCH (09:33)
[2021-06-02] MEDS: hydrALAZINE 25 MG TAB PO SCH ×2 (09:33→21:08)
[2021-06-02] MEDS: Lisinopril 20 MG TAB PO SCH ×2 (09:33→21:08)
[2021-06-02] MEDS: Carvedilol 6.25 MG TAB PO SCH ×2 (09:33→21:08)
[2021-06-02] MEDS: Clopidogrel Bisulfate 75 MG TAB PO SCH (09:33)
[2021-06-02 10:12] LABS: Anion Gap 13 mmol/L (10-20); BUN (Urea Nitrogen) 21 mg/dL (9.8-20.1); Calc. Creatinine Clearance 105 mL/min (70-130); Calcium 9.2 mg/dL (7.8-10.44); Carbon Dioxide 33 mmol/L (23-31); Chloride 100 mmol/L (98-107); Glucose 114 mg/dL (80-115); Potassium 3.6 mmol/L (3.5-5.1); Sodium 142 mmol/L (136-145)
[2021-06-02] MEDS: Venlafaxine HCl XR 75 MG CAP PO SCH (14:05)
[2021-06-02] MEDS: Albuterol Sulfate 2.5 mg/3 ml Neb NEB SCH ×4 (14:06→22:49)
[2021-06-02] MEDS: Mometasone 200 MCG/Formoterol 5 MCG 120 PUFF INHALER INH SCH (19:08)
[2021-06-02] MEDS: Atorvastatin Calcium 40 MG TAB PO SCH (21:08)
[2021-06-02] MEDS: Doxycycline 100 MG CAP PO SCH (21:08)
[2021-06-03] MEDS: Albuterol Sulfate 2.5 mg/3 ml Neb NEB SCH ×6 (02:51→22:00)
[2021-06-03 04:15] LABS: #Eosinphils 0.1 thou/uL (0.0-0.7); #Lymphocytes 1.7 thou/uL (1.20-3.40); #Monocytes 0.8 thou/uL (0.11-0.59); #Neutrophils 6.3 thou/uL (1.40-6.50); %Basophils 0.4 % (0.0-1.0); %Eosinophils 0.6 % (0.0-10.0); %Lymphocytes 18.5 % (21.0-51.0); %Monocytes 9.4 % (0.0-10.0); Hemoglobin 11.8 g/dL (12.0-16.0); Mean Corpuscular HGB CONC 32.4 g/dL (32.0-36.0); Mean Corpuscular Hemoglobin 32.3 pg (27.0-31.0); Mean Corpuscular Volume 99.6 fL (78.0-98.0); Mean Platelet Volume 8.9 fL (7.4-10.4); Platelet Count 140 thou/uL (130-400); RBC Distribution Width 13.7 % (11.5-14.5); Red Blood Cell (RBC) Count 3.67 mill/uL (4.20-5.40); White Blood Cell (WBC) Count 8.9 thou/uL (4.8-10.8)
[2021-06-03 04:38] LABS: Anion Gap 12 mmol/L (10-20); BUN (Urea Nitrogen) 28 mg/dL (9.8-20.1); Calc. Creatinine Clearance 93 mL/min (70-130); Calcium 9.1 mg/dL (7.8-10.44); Carbon Dioxide 35 mmol/L (23-31); Chloride 99 mmol/L (98-107); Glucose 88 mg/dL (80-115); Magnesium 2.5 mg/dL (1.6-2.6); Potassium 3.8 mmol/L (3.5-5.1); Sodium 142 mmol/L (136-145)
[2021-06-03] MEDS ORDERED: Spironolactone 25 MG TAB PO SCH (08:00)
[2021-06-03] MEDS: Apixaban 5 MG TAB PO SCH ×2 (08:35→20:43)
[2021-06-03] MEDS: Amiodarone 200 MG TAB PO SCH (08:35)
[2021-06-03] MEDS: Aspirin 81 mg Enteric Coated Tablet PO SCH (08:35)
[2021-06-03] MEDS: Docusate 100 MG CAP PO SCH (08:35)
[2021-06-03] MEDS: hydrALAZINE 25 MG TAB PO SCH ×2 (08:36→20:43)
[2021-06-03] MEDS: Carvedilol 6.25 MG TAB PO SCH ×2 (08:36→20:44)
[2021-06-03] MEDS: Doxycycline 100 MG CAP PO SCH ×2 (08:36→20:43)
[2021-06-03] MEDS: Furosemide 40 MG TAB PO SCH (08:36)
[2021-06-03] MEDS: Venlafaxine HCl XR 75 MG CAP PO SCH (08:37)
[2021-06-03] MEDS: Clopidogrel Bisulfate 75 MG TAB PO SCH (08:37)
[2021-06-03] MEDS: Lisinopril 20 MG TAB PO SCH ×2 (08:37→20:44)
[2021-06-03] MEDS: Mometasone 200 MCG/Formoterol 5 MCG 120 PUFF INHALER INH SCH ×2 (08:57→18:37)
[2021-06-03] MEDS ORDERED: methylPREDNISolone Sod Succ 40 MG VIAL IVP SCH (09:00)
[2021-06-03] MEDS: hydrALAZINE 20 MG/ML VIAL SLOW IVP PRN ×3 (11:31→23:29)
[2021-06-03] MEDS: Atorvastatin Calcium 40 MG TAB PO SCH (20:43)
[2021-06-04] MEDS: Albuterol Sulfate 2.5 mg/3 ml Neb NEB SCH ×6 (00:23→21:43)
[2021-06-04] MEDS ORDERED: Famotidine/PF 20 mg/2ml Vial SLOW IVP SCH (01:45)
[2021-06-04] MEDS ORDERED: methylPREDNISolone Sod Succ/PF 125 MG/2 ML VIAL IVP SCH (01:45)
[2021-06-04] MEDS: diphenhydrAMINE 50 MG/ML VIAL IVP SCH ×3 (01:49→17:45)
[2021-06-04 05:43] LABS: Anion Gap 10 mmol/L (10-20); BUN (Urea Nitrogen) 24 mg/dL (9.8-20.1); Calc. Creatinine Clearance 121 mL/min (70-130); Calcium 9.1 mg/dL (7.8-10.44); Carbon Dioxide 35 mmol/L (23-31); Chloride 99 mmol/L (98-107); Glucose 138 mg/dL (80-115); Sodium 140 mmol/L (136-145)
[2021-06-04] MEDS: Mometasone 200 MCG/Formoterol 5 MCG 120 PUFF INHALER INH SCH ×2 (06:54→18:13)
[2021-06-04] MEDS: predniSONE 20 MG TAB PO SCH (08:34)
[2021-06-04] MEDS: Furosemide 40 MG TAB PO SCH (08:34)
[2021-06-04] MEDS: Apixaban 5 MG TAB PO SCH ×2 (08:34→20:33)
[2021-06-04] MEDS: Aspirin 81 mg Enteric Coated Tablet PO SCH (08:34)
[2021-06-04] MEDS: Clopidogrel Bisulfate 75 MG TAB PO SCH (08:35)
[2021-06-04] MEDS: Docusate 100 MG CAP PO SCH (08:35)
[2021-06-04] MEDS: Carvedilol 6.25 MG TAB PO SCH ×2 (08:35→20:31)
[2021-06-04] MEDS: Lisinopril 20 MG TAB PO SCH ×2 (08:36→20:31)
[2021-06-04] MEDS: hydrALAZINE 25 MG TAB PO SCH (08:36)
[2021-06-04] MEDS: Venlafaxine HCl XR 75 MG CAP PO SCH (08:37)
[2021-06-04] MEDS: Amiodarone 200 MG TAB PO SCH (08:37)
[2021-06-04] MEDS: ALPRAZolam 0.25 MG TAB PO PRN ×2 (08:41→20:42)
[2021-06-04] MEDS ORDERED: Magnesium 2 GM/50 ML 2 GM in Premix Bag 1 BAG IVPB SCH (09:00)
[2021-06-04] MEDS: Doxycycline 100 MG CAP PO SCH (10:43)
[2021-06-04] MEDS ORDERED: Amlodipine 5 MG TAB PO SCH (11:15)
[2021-06-04] MEDS: Atorvastatin Calcium 40 MG TAB PO SCH (20:25)
[2021-06-04] MEDS ORDERED: Nitroglycerin 2% Ointment 1 INCH/1 GM Packet TOP SCH (22:38)
[2021-06-05] MEDS: Albuterol Sulfate 2.5 mg/3 ml Neb NEB SCH ×3 (00:10→10:08)
[2021-06-05] MEDS: Mometasone 200 MCG/Formoterol 5 MCG 120 PUFF INHALER INH SCH (07:39)
[2021-06-05] MEDS: Furosemide 40 MG TAB PO SCH (08:28)
[2021-06-05] MEDS: predniSONE 20 MG TAB PO SCH (08:28)
[2021-06-05] MEDS: Apixaban 5 MG TAB PO SCH (08:29)
[2021-06-05] MEDS: Aspirin 81 mg Enteric Coated Tablet PO SCH (08:29)
[2021-06-05] MEDS: Amiodarone 200 MG TAB PO SCH (08:29)
[2021-06-05] MEDS: Carvedilol 6.25 MG TAB PO SCH (08:29)
[2021-06-05] MEDS: Clopidogrel Bisulfate 75 MG TAB PO SCH (08:29)
[2021-06-05] MEDS: Docusate 100 MG CAP PO SCH (08:30)
[2021-06-05] MEDS: Lisinopril 20 MG TAB PO SCH (08:30)
[2021-06-05] MEDS: ALPRAZolam 0.25 MG TAB PO PRN (08:30)
[2021-06-05] MEDS: Venlafaxine HCl XR 75 MG CAP PO SCH (08:30)
[2021-06-05] MEDS ORDERED: Amlodipine 5 MG TAB PO SCH ×2 (09:00→11:08)
[2021-06-05] MEDS ORDERED: Amlodipine 10 MG TAB PO SCH (11:15)
[2021-06-05 11:49] VITALS: BP 177/81
[2021-06-05 12:13] VITALS: TEMP 98.4
[2021-06-06] MEDS ORDERED: Amlodipine 10 MG TAB PO SCH (09:00)
== END 2021-06-05 13:00 | disposition home or self-care (01) | DRG 291 ==
LOC: 2SW 04:45 → IMCU/EMU 11:36 → OBSVTOIN 14:01 → 2NO 06-03 12:31
PROVIDERS: ADMIT Student in an Organized Health Care Education/Training Program; ATTEND Family Medicine
DX: I13.0 Hypertensive heart and chronic kidney disease with heart failure and stage 1 through stage 4 chronic kidney disease, or unspecified chronic kidney disease (principal); I50.33 Acute on chronic diastolic (congestive) heart failure; J44.1 Chronic obstructive pulmonary disease with (acute) exacerbation; J96.12 Chronic respiratory failure with hypercapnia; N17.9 Acute kidney failure, unspecified; N18.4 Chronic kidney disease, stage 4 (severe); F17.210 Nicotine dependence, cigarettes, uncomplicated; I16.0 Hypertensive urgency; E66.01 Morbid (severe) obesity due to excess calories; I25.10 Atherosclerotic heart disease of native coronary artery without angina pectoris; K21.9 Gastro-esophageal reflux disease without esophagitis; M19.90 Unspecified osteoarthritis, unspecified site; J45.909 Unspecified asthma, uncomplicated; I48.0 Paroxysmal atrial fibrillation; L27.0 Generalized skin eruption due to drugs and medicaments taken internally; T46.5X5A Adverse effect of other antihypertensive drugs, initial encounter; Z68.41 Body mass index [BMI] 40.0-44.9, adult; Z79.01 Long term (current) use of anticoagulants; Z79.51 Long term (current) use of inhaled steroids; Z79.52 Long term (current) use of systemic steroids; Z79.899 Other long term (current) drug therapy; I25.2 Old myocardial infarction; Z95.1 Presence of aortocoronary bypass graft; Z95.5 Presence of coronary angioplasty implant and graft; Z88.8 Allergy status to other drugs, medicaments and biological substances
CPT/HCPCS: 36415; 36600; 80048; 82805; 83735; 85025; 93005; 93010; 94640; 94660; J0360; J1200; J1940; J2920; J2930; J3475; J7512; J7611; J7620; S0028

== ENCOUNTER 2021-06-24 10:51 | Outpatient (CLI) | payer BC | END 2021-06-24 10:52 | disposition home or self-care (01) | LOC: ULT 10:51 | PROVIDERS: ATTEND Internal Medicine Nephrology | DX: I15.9 Secondary hypertension, unspecified (principal) | CPT/HCPCS: 76770; 93975 ==

== ENCOUNTER 2021-08-25 17:26 | Inpatient (IN) | payer SELFPAY ==
[2021-08-25] MEDS ORDERED: methylPREDNISolone Sod Succ/PF 125 MG/2 ML VIAL IVP SCH (20:05)
[2021-08-25] MEDS ORDERED: Potassium Chloride 20 MEQ TAB PO SCH (20:15)
[2021-08-25] MEDS ORDERED: Ondansetron ODT 4 MG TAB PO PRN (20:17)
[2021-08-25] MEDS ORDERED: Ondansetron PF 4 MG/2 ML Vial IVP PRN (20:17)
[2021-08-25] MEDS ORDERED: Guaifenesin DM 100-10/5 ML UDCUP PO PRN (20:17)
[2021-08-25] MEDS ORDERED: Senokot S 8.6-50 MG TAB PO PRN (20:17)
[2021-08-25] MEDS ORDERED: Nitroglycerin 0.4 MG TAB (25 Tab Bottle) SL PRN (20:26)
[2021-08-25 20:37] LABS: Troponin I 0.024 ng/mL (< 0.028)
[2021-08-25 20:48] VITALS: BMI 43.0
[2021-08-25] MEDS: Apixaban 5 MG TAB PO SCH (21:03)
[2021-08-25] MEDS: Atorvastatin Calcium 40 MG TAB PO SCH (21:03)
[2021-08-25] MEDS: Carvedilol 6.25 MG TAB PO SCH (21:04)
[2021-08-25] MEDS: Nicotine 21 MG PATCH TD SCH (21:08)
[2021-08-25] MEDS ORDERED: hydrALAZINE 20 MG/ML VIAL SLOW IVP PRN (21:19)
[2021-08-25 21:27] LABS: #Eosinphils 0.2 thou/uL (0.0-0.7); #Lymphocytes 1.3 thou/uL (1.20-3.40); #Monocytes 0.5 thou/uL (0.11-0.59); #Neutrophils 4.3 thou/uL (1.40-6.50); %Basophils 0.6 % (0.0-1.0); %Eosinophils 3.1 % (0.0-10.0); %Lymphocytes 20.6 % (21.0-51.0); %Monocytes 8.5 % (0.0-10.0); %Neutrophils 67.2 % (42.0-75.0); Hemoglobin 12.2 g/dL (12.0-16.0); Mean Corpuscular HGB CONC 31.5 g/dL (32.0-36.0); Mean Corpuscular Hemoglobin 31.2 pg (27.0-31.0); Mean Corpuscular Volume 98.9 fL (78.0-98.0); Mean Platelet Volume 9.4 fL (7.4-10.4); Platelet Count 154 thou/uL (130-400); RBC Distribution Width 13.1 % (11.5-14.5); Red Blood Cell (RBC) Count 3.91 mill/uL (4.20-5.40); White Blood Cell (WBC) Count 6.3 thou/uL (4.8-10.8)
[2021-08-25] MEDS: Sodium Chloride 0.9% 1,000 ML IV SCH (21:33)
[2021-08-25 21:48] LABS: ALT (SGPT) 19 U/L (8-55); AST (SGOT) 21 U/L (5-34); Albumin 3.7 g/dL (3.4-4.8); Alkaline Phosphatase 96 U/L (40-110); Anion Gap 19 mmol/L (10-20); BUN (Urea Nitrogen) 47 mg/dL (9.8-20.1); Bilirubin, Total 0.2 mg/dL (0.2-1.2); Calc. Creatinine Clearance 63 mL/min (70-130); Calcium 8.9 mg/dL (7.8-10.44); Carbon Dioxide 33 mmol/L (23-31); Chloride 94 mmol/L (98-107); Globulin 3.1 g/dL (2.4-3.5); Glucose 106 mg/dL (80-115); Potassium 3.1 mmol/L (3.5-5.1); Protein, Total 6.8 g/dL (5.8-8.1); Sodium 143 mmol/L (136-145)
[2021-08-26] MEDS ORDERED: methylPREDNISolone Sod Succ 40 MG VIAL IVP SCH (06:00)
[2021-08-26 09:21] LABS: #Lymphocytes 0.5 thou/uL (1.20-3.40); #Monocytes 0.1 thou/uL (0.11-0.59); #Neutrophils 7.1 thou/uL (1.40-6.50); %Eosinophils 0.2 % (0.0-10.0); %Monocytes 0.8 % (0.0-10.0); Hemoglobin 13.2 g/dL (12.0-16.0); Mean Corpuscular HGB CONC 31.4 g/dL (32.0-36.0); Mean Corpuscular Hemoglobin 30.6 pg (27.0-31.0); Mean Corpuscular Volume 97.4 fL (78.0-98.0); Mean Platelet Volume 9.4 fL (7.4-10.4); Platelet Count 149 thou/uL (130-400); Red Blood Cell (RBC) Count 4.32 mill/uL (4.20-5.40); White Blood Cell (WBC) Count 7.7 thou/uL (4.8-10.8)
[2021-08-26 09:29] LABS: Anion Gap 15 mmol/L (10-20); BUN (Urea Nitrogen) 39 mg/dL (9.8-20.1); Calc. Creatinine Clearance 86 mL/min (70-130); Calcium 9.2 mg/dL (7.8-10.44); Carbon Dioxide 34 mmol/L (23-31); Chloride 98 mmol/L (98-107); Glucose 155 mg/dL (80-115); Sodium 143 mmol/L (136-145)
[2021-08-26] MEDS: Amiodarone 200 MG TAB PO SCH (09:37)
[2021-08-26] MEDS: Apixaban 5 MG TAB PO SCH ×2 (09:37→19:24)
[2021-08-26] MEDS: Amlodipine 10 MG TAB PO SCH (09:37)
[2021-08-26] MEDS: Carvedilol 6.25 MG TAB PO SCH ×2 (09:37→19:24)
[2021-08-26] MEDS: Aspirin 81 mg Enteric Coated Tablet PO SCH (09:37)
[2021-08-26] MEDS: Clopidogrel Bisulfate 75 MG TAB PO SCH (09:38)
[2021-08-26] MEDS: Venlafaxine HCl XR 75 MG CAP PO SCH (09:38)
[2021-08-26] MEDS: Ferrous Sulfate 325 MG TAB PO SCH (09:38)
[2021-08-26] MEDS: Docusate 100 MG CAP PO SCH (09:38)
[2021-08-26] MEDS: Furosemide 40 MG TAB PO SCH (09:38)
[2021-08-26 11:34] LABS: Actual Bicarbonate (HCO3a) 39.2 mEq/L (22-28); Base Excess (BEa) 12.4 mEq/L (-2.0 to +3.0); CO2 Tension 59.8 mmHg (35.0-45.0); Hemoglobin (Hb) 13.4 g/dL (12.0-16.0); O2 Tension (PaO2), arterial 68.6 mmHg (> 80.0); pH, Arterial 7.43 (7.35-7.45)
[2021-08-26 11:37] LABS: Puncture Site RRA
[2021-08-26] MEDS ORDERED: Albuterol Sulfate 2.5 mg/3 ml Neb NEB PRN (14:39)
[2021-08-26] MEDS: Sodium Chloride 0.9% 1,000 ML IV SCH (17:07)
[2021-08-26] MEDS: Atorvastatin Calcium 40 MG TAB PO SCH (19:24)
[2021-08-26] MEDS: methylPREDNISolone Sod Succ 40 MG VIAL IVP SCH (19:27)
[2021-08-26] MEDS: Nicotine 21 MG PATCH TD SCH (19:27)
[2021-08-26] MEDS: Mometasone 200 MCG/Formoterol 5 MCG 120 PUFF INHALER INH SCH (19:36)
[2021-08-27] MEDS: Mometasone 200 MCG/Formoterol 5 MCG 120 PUFF INHALER INH SCH ×3 (07:35→19:19)
[2021-08-27] MEDS: Amiodarone 200 MG TAB PO SCH (08:21)
[2021-08-27] MEDS: Amlodipine 10 MG TAB PO SCH (08:22)
[2021-08-27] MEDS: Apixaban 5 MG TAB PO SCH ×2 (08:23→20:59)
[2021-08-27] MEDS: Carvedilol 6.25 MG TAB PO SCH ×2 (08:23→20:59)
[2021-08-27] MEDS: Aspirin 81 mg Enteric Coated Tablet PO SCH (08:23)
[2021-08-27] MEDS: Clopidogrel Bisulfate 75 MG TAB PO SCH (08:25)
[2021-08-27] MEDS: Docusate 100 MG CAP PO SCH (08:25)
[2021-08-27] MEDS: Ferrous Sulfate 325 MG TAB PO SCH (08:25)
[2021-08-27] MEDS: methylPREDNISolone Sod Succ 40 MG VIAL IVP SCH ×2 (08:26→20:59)
[2021-08-27] MEDS: Furosemide 40 MG TAB PO SCH (08:26)
[2021-08-27] MEDS: Venlafaxine HCl XR 75 MG CAP PO SCH (08:27)
[2021-08-27] MEDS: Nicotine 21 MG PATCH TD SCH (20:59)
[2021-08-27] MEDS: Atorvastatin Calcium 40 MG TAB PO SCH (20:59)
[2021-08-28 07:26] LABS: #Monocytes 0.7 thou/uL (0.11-0.59); #Neutrophils 12.5 thou/uL (1.40-6.50); %Basophils 0.1 % (0.0-1.0); %Lymphocytes 6.7 % (21.0-51.0); %Monocytes 5.2 % (0.0-10.0); Hemoglobin 12.7 g/dL (12.0-16.0); Mean Corpuscular HGB CONC 31.3 g/dL (32.0-36.0); Mean Corpuscular Hemoglobin 30.9 pg (27.0-31.0); Mean Corpuscular Volume 98.9 fL (78.0-98.0); Mean Platelet Volume 9.3 fL (7.4-10.4); Platelet Count 148 thou/uL (130-400); Red Blood Cell (RBC) Count 4.11 mill/uL (4.20-5.40); White Blood Cell (WBC) Count 14.2 thou/uL (4.8-10.8)
[2021-08-28] MEDS: Mometasone 200 MCG/Formoterol 5 MCG 120 PUFF INHALER INH SCH (07:31)
[2021-08-28 07:36] LABS: Anion Gap 14 mmol/L (10-20); BUN (Urea Nitrogen) 27 mg/dL (9.8-20.1); Calc. Creatinine Clearance 118 mL/min (70-130); Carbon Dioxide 34 mmol/L (23-31); Chloride 98 mmol/L (98-107); Glucose 147 mg/dL (80-115); Potassium 3.9 mmol/L (3.5-5.1); Sodium 142 mmol/L (136-145)
[2021-08-28 07:52] VITALS: TEMP 97.9
[2021-08-28] MEDS: Amiodarone 200 MG TAB PO SCH (08:24)
[2021-08-28] MEDS: Carvedilol 6.25 MG TAB PO SCH (08:25)
[2021-08-28] MEDS: Apixaban 5 MG TAB PO SCH (08:25)
[2021-08-28] MEDS: Amlodipine 10 MG TAB PO SCH (08:25)
[2021-08-28] MEDS: methylPREDNISolone Sod Succ 40 MG VIAL IVP SCH (08:26)
[2021-08-28] MEDS: Clopidogrel Bisulfate 75 MG TAB PO SCH (08:26)
[2021-08-28] MEDS: Docusate 100 MG CAP PO SCH (08:26)
[2021-08-28] MEDS: Furosemide 40 MG TAB PO SCH (08:26)
[2021-08-28] MEDS: Venlafaxine HCl XR 75 MG CAP PO SCH (08:26)
[2021-08-28] MEDS: Ferrous Sulfate 325 MG TAB PO SCH (08:26)
[2021-08-28 11:47] VITALS: BP 155/70
== END 2021-08-28 12:31 | disposition home or self-care (01) | DRG 291 ==
LOC: 2SW 19:47 → OBSVTOIN 08-27 10:25
PROVIDERS: ADMIT Internal Medicine; ATTEND Internal Medicine
DX: I11.0 Hypertensive heart disease with heart failure (principal); J96.21 Acute and chronic respiratory failure with hypoxia; I50.33 Acute on chronic diastolic (congestive) heart failure; J44.1 Chronic obstructive pulmonary disease with (acute) exacerbation; N17.9 Acute kidney failure, unspecified; Z68.41 Body mass index [BMI] 40.0-44.9, adult; I48.20 Chronic atrial fibrillation, unspecified; E87.6 Hypokalemia; M19.90 Unspecified osteoarthritis, unspecified site; I25.10 Atherosclerotic heart disease of native coronary artery without angina pectoris; E78.5 Hyperlipidemia, unspecified; K21.9 Gastro-esophageal reflux disease without esophagitis; E11.9 Type 2 diabetes mellitus without complications; F32.A Depression, unspecified; F17.210 Nicotine dependence, cigarettes, uncomplicated; E66.01 Morbid (severe) obesity due to excess calories; Z95.1 Presence of aortocoronary bypass graft; I25.2 Old myocardial infarction; Z88.8 Allergy status to other drugs, medicaments and biological substances; Z79.01 Long term (current) use of anticoagulants; Z79.82 Long term (current) use of aspirin; Z79.02 Long term (current) use of antithrombotics/antiplatelets; Z79.51 Long term (current) use of inhaled steroids; Z95.5 Presence of coronary angioplasty implant and graft; Z71.6 Tobacco abuse counseling
CPT/HCPCS: 36415; 36600; 80048; 80061; 82805; 83880; 85025; 94640; 94660; J2920; J2930; J7050; J7620

== ENCOUNTER 2021-12-13 07:53 | Inpatient (IN) | payer OTHER ==
[2021-12-13 15:07] VITALS: BMI 44.4
[2021-12-13] MEDS ORDERED: diphenhydrAMINE 25 MG CAP PO PRN (15:42)
[2021-12-13] MEDS ORDERED: Moisturizing Cream (Eucerin) 113 GM JAR TOP PRN (15:42)
[2021-12-13] MEDS ORDERED: hydrALAZINE 20 MG/ML VIAL SLOW IVP PRN (15:42)
[2021-12-13] MEDS ORDERED: Ondansetron ODT 4 MG TAB PO PRN (15:42)
[2021-12-13] MEDS ORDERED: Ondansetron PF 4 MG/2 ML Vial IVP PRN (15:42)
[2021-12-13] MEDS ORDERED: Nitroglycerin 0.4 MG TAB (25 Tab Bottle) SL PRN (15:42)
[2021-12-13] MEDS ORDERED: Labetalol HCl 100 MG/20 ML VIAL SLOW IVP PRN (15:42)
[2021-12-13] MEDS ORDERED: Bisacodyl 5 MG TAB PO PRN (15:42)
[2021-12-13] MEDS ORDERED: Artificial Tear Sol 15 ML BOT EA EYE PRN (15:42)
[2021-12-13] MEDS ORDERED: Calcium Carbonate 500 MG ChewTAB PO PRN (15:42)
[2021-12-13] MEDS ORDERED: Acetaminophen 650 MG Suppository PR PRN (15:42)
[2021-12-13] MEDS ORDERED: Senokot S 8.6-50 MG TAB PO PRN (15:42)
[2021-12-13 16:32] LABS: Anion Gap 15 mmol/L (10-20); BUN (Urea Nitrogen) 26 mg/dL (9.8-20.1); Calc. Creatinine Clearance 66 mL/min (70-130); Calcium 8.5 mg/dL (7.8-10.44); Carbon Dioxide 33 mmol/L (23-31); Chloride 95 mmol/L (98-107); Glucose 123 mg/dL (80-115); Potassium 3.5 mmol/L (3.5-5.1); Sodium 139 mmol/L (136-145)
[2021-12-13 16:34] LABS: Phosphorus 4.4 mg/dL (2.3-4.7)
[2021-12-13] MEDS ORDERED: Electrolyte Replacement Protocol 1 EACH FS SCH (16:45)
[2021-12-13] MEDS ORDERED: Albuterol 200 PUFF (6.7GM INHALER) INH PRN (16:48)
[2021-12-13 17:21] LABS: Bacteria/HPF 1+ HPF (None Seen); Bilirubin Negative (Negative); Blood, Urine 2+ (Negative); Clarity Clear (Clear); Glucose, Urine (Dipstick) Normal (Negative); Ketone, Urine Negative (Negative); Leukocyte Negative Leu/uL (Negative); Nitrite Negative (Negative); Protein, Urine (Dipstick) Negative (Neg-Trace); RBC/HPF 21-50 HPF (0-3); Specific Gravity, Urine 1.013 (1.002-1.036); Squamous Epithelial 0-3 HPF (0-3); Urobilinogen Normal mg/dL (Less than 2); WBC/HPF 0-3 HPF (0-3)
[2021-12-13] MEDS: Carvedilol 25 MG TAB PO SCH (18:14)
[2021-12-13] MEDS: cefTRIAXone\\ROCEPHIN 1 GM in Sodium Chloride 0.9% 100 ML IVPB SCH (18:14)
[2021-12-13] MEDS: Acetaminophen 325 MG TAB PO PRN ×2 (18:24→23:35)
[2021-12-13] MEDS: Mometasone 100 MCG/PUFF (1 INHALER) INH SCH (19:30)
[2021-12-13] MEDS: Apixaban 5 MG TAB PO SCH (20:36)
[2021-12-13] MEDS: Senokot 8.6 MG TAB PO SCH (20:36)
[2021-12-13] MEDS: Baclofen 10 MG TAB PO SCH (20:36)
[2021-12-13] MEDS: Pregabalin 25 MG CAP PO SCH (20:47)
[2021-12-13] MEDS ORDERED: Pregabalin 75 MG CAP PO SCH (21:00)
[2021-12-14] MEDS: Estrogens, Conjugated 30 GM TUBE VAG SCH ×2 (00:59→20:44)
[2021-12-14 04:40] LABS: #Eosinphils 0.2 thou/uL (0.0-0.7); #Lymphocytes 1.1 thou/uL (1.20-3.40); #Monocytes 0.5 thou/uL (0.11-0.59); #Neutrophils 2.9 thou/uL (1.40-6.50); %Basophils 0.5 % (0.0-1.0); %Eosinophils 4.1 % (0.0-10.0); %Lymphocytes 24.1 % (21.0-51.0); %Monocytes 10.7 % (0.0-10.0); %Neutrophils 60.6 % (42.0-75.0); Hemoglobin 10.9 g/dL (12.0-16.0); Mean Corpuscular HGB CONC 31.7 g/dL (32.0-36.0); Mean Corpuscular Hemoglobin 29.8 pg (27.0-31.0); Mean Corpuscular Volume 93.8 fL (78.0-98.0); Mean Platelet Volume 9.8 fL (7.4-10.4); Platelet Count 101 thou/uL (130-400); RBC Distribution Width 14.8 % (11.5-14.5); Red Blood Cell (RBC) Count 3.67 mill/uL (4.20-5.40); White Blood Cell (WBC) Count 4.7 thou/uL (4.8-10.8)
[2021-12-14 05:02] LABS: Iron 58 ug/dL (50-170); Iron Binding Capacity, Total 329 mcg/dL (265-497); Magnesium 2.1 mg/dL (1.6-2.6)
[2021-12-14 05:03] LABS: Anion Gap 12 mmol/L (10-20); BUN (Urea Nitrogen) 24 mg/dL (9.8-20.1); Calc. Creatinine Clearance 95 mL/min (70-130); Calcium 8.7 mg/dL (7.8-10.44); Carbon Dioxide 37 mmol/L (23-31); Chloride 97 mmol/L (98-107); Glucose 111 mg/dL (80-115); Iron 60 ug/dL (50-170); Iron Binding Capacity, Total 333 mcg/dL (265-497); Potassium 3.5 mmol/L (3.5-5.1); Sodium 142 mmol/L (136-145)
[2021-12-14] MEDS: Acetaminophen 325 MG TAB PO PRN ×2 (05:49→17:10)
[2021-12-14] MEDS ORDERED: Furosemide 40 MG TAB PO SCH (06:00)
[2021-12-14] MEDS ORDERED: Potassium Chloride 20 MEQ TAB PO SCH (06:15)
[2021-12-14] MEDS: Mometasone 100 MCG/PUFF (1 INHALER) INH SCH ×2 (07:14→19:12)
[2021-12-14] MEDS: Senokot 8.6 MG TAB PO SCH (08:58)
[2021-12-14] MEDS: Amiodarone 200 MG TAB PO SCH (08:58)
[2021-12-14] MEDS: Venlafaxine HCl XR 75 MG CAP PO SCH (08:58)
[2021-12-14] MEDS: Prenatal Vitamin 1 TAB PO SCH (08:58)
[2021-12-14] MEDS: Clopidogrel Bisulfate 75 MG TAB PO SCH (08:58)
[2021-12-14] MEDS: Apixaban 5 MG TAB PO SCH ×2 (08:58→20:44)
[2021-12-14] MEDS: Carvedilol 25 MG TAB PO SCH ×2 (08:58→16:17)
[2021-12-14] MEDS: Baclofen 10 MG TAB PO SCH ×2 (08:59→20:44)
[2021-12-14] MEDS ORDERED: Polyethylene Glycol 3350 17 GM Packet PO SCH (09:00)
[2021-12-14] MEDS: Pregabalin 25 MG CAP PO SCH ×3 (09:38→20:51)
[2021-12-14] MEDS: cefTRIAXone\\ROCEPHIN 1 GM in Sodium Chloride 0.9% 100 ML IVPB SCH (16:17)
[2021-12-14] MEDS: Senokot S 8.6-50 MG TAB PO SCH (20:43)
[2021-12-14] MEDS: Polyethylene Glycol 3350 17 GM Packet PO SCH (20:45)
[2021-12-15 04:47] LABS: #Basophils 0.1 thou/uL (0.0-0.2); #Eosinphils 0.2 thou/uL (0.0-0.7); #Lymphocytes 1.5 thou/uL (1.20-3.40); #Monocytes 0.6 thou/uL (0.11-0.59); #Neutrophils 2.1 thou/uL (1.40-6.50); %Basophils 1.3 % (0.0-1.0); %Eosinophils 3.6 % (0.0-10.0); %Lymphocytes 33.8 % (21.0-51.0); %Neutrophils 47.3 % (42.0-75.0); Hemoglobin 11.5 g/dL (12.0-16.0); Mean Corpuscular HGB CONC 31.8 g/dL (32.0-36.0); Mean Corpuscular Hemoglobin 29.9 pg (27.0-31.0); Mean Corpuscular Volume 93.9 fL (78.0-98.0); Mean Platelet Volume 9.4 fL (7.4-10.4); Platelet Count 116 thou/uL (130-400); RBC Distribution Width 14.8 % (11.5-14.5); Red Blood Cell (RBC) Count 3.85 mill/uL (4.20-5.40); White Blood Cell (WBC) Count 4.4 thou/uL (4.8-10.8)
[2021-12-15 04:53] LABS: Anion Gap 12 mmol/L (10-20); BUN (Urea Nitrogen) 17 mg/dL (9.8-20.1); Calc. Creatinine Clearance 124 mL/min (70-130); Calcium 9.4 mg/dL (7.8-10.44); Carbon Dioxide 35 mmol/L (23-31); Chloride 96 mmol/L (98-107); Glucose 107 mg/dL (80-115); Potassium 3.5 mmol/L (3.5-5.1); Sodium 139 mmol/L (136-145)
[2021-12-15] MEDS: Mometasone 100 MCG/PUFF (1 INHALER) INH SCH ×2 (07:31→19:06)
[2021-12-15] MEDS ORDERED: Magnesium 2 GM/50 ML(in water) 2 GM in Premix Bag 1 BAG IVPB SCH (08:00)
[2021-12-15] MEDS ORDERED: Potassium Chloride 20 MEQ TAB PO SCH (08:00)
[2021-12-15] MEDS: Carvedilol 25 MG TAB PO SCH (10:05)
[2021-12-15] MEDS: Polyethylene Glycol 3350 17 GM Packet PO SCH ×2 (10:06→21:06)
[2021-12-15] MEDS: Senokot S 8.6-50 MG TAB PO SCH ×2 (10:06→21:06)
[2021-12-15] MEDS: Prenatal Vitamin 1 TAB PO SCH (10:06)
[2021-12-15] MEDS: Amiodarone 200 MG TAB PO SCH (10:06)
[2021-12-15] MEDS: Apixaban 5 MG TAB PO SCH ×2 (10:07→21:06)
[2021-12-15] MEDS: Baclofen 10 MG TAB PO SCH ×2 (10:07→21:06)
[2021-12-15] MEDS: Venlafaxine HCl XR 75 MG CAP PO SCH (10:07)
[2021-12-15] MEDS: Clopidogrel Bisulfate 75 MG TAB PO SCH (10:07)
[2021-12-15] MEDS: Pregabalin 25 MG CAP PO SCH ×3 (10:08→21:10)
[2021-12-15] MEDS: Furosemide 40 MG TAB PO SCH (10:08)
[2021-12-15] MEDS: Acetaminophen 325 MG TAB PO PRN ×2 (14:54→21:10)
[2021-12-15] MEDS: Carvedilol 6.25 MG TAB PO SCH (17:30)
[2021-12-16] MEDS: Mometasone 100 MCG/PUFF (1 INHALER) INH SCH (07:15)
[2021-12-16] MEDS: Carvedilol 6.25 MG TAB PO SCH (08:15)
[2021-12-16] MEDS: Amiodarone 200 MG TAB PO SCH (08:16)
[2021-12-16] MEDS: Baclofen 10 MG TAB PO SCH (08:17)
[2021-12-16] MEDS: Apixaban 5 MG TAB PO SCH (08:17)
[2021-12-16] MEDS: Furosemide 40 MG TAB PO SCH (08:20)
[2021-12-16] MEDS: Clopidogrel Bisulfate 75 MG TAB PO SCH (08:20)
[2021-12-16] MEDS: Polyethylene Glycol 3350 17 GM Packet PO SCH (08:21)
[2021-12-16] MEDS: Pregabalin 25 MG CAP PO SCH (08:21)
[2021-12-16] MEDS: Senokot S 8.6-50 MG TAB PO SCH (08:22)
[2021-12-16] MEDS: Prenatal Vitamin 1 TAB PO SCH (08:22)
[2021-12-16] MEDS: Venlafaxine HCl XR 75 MG CAP PO SCH (08:23)
[2021-12-16] MEDS: Acetaminophen 325 MG TAB PO PRN (08:35)
[2021-12-16] MEDS ORDERED: Amlodipine 5 MG TAB PO SCH (09:00)
[2021-12-16 09:24] LABS: Anion Gap 14 mmol/L (10-20); BUN (Urea Nitrogen) 13 mg/dL (9.8-20.1); Calc. Creatinine Clearance 130 mL/min (70-130); Calcium 9.2 mg/dL (7.8-10.44); Carbon Dioxide 34 mmol/L (23-31); Chloride 97 mmol/L (98-107); Glucose 114 mg/dL (80-115); Potassium 3.5 mmol/L (3.5-5.1); Sodium 141 mmol/L (136-145)
[2021-12-16] MEDS ORDERED: Spironolactone 25 MG TAB PO SCH (10:45)
[2021-12-16] MEDS ORDERED: Potassium Chloride 20 MEQ TAB PO SCH (11:00)
[2021-12-16 15:27] VITALS: BP 132/63; TEMP 98
[2021-12-17] MEDS ORDERED: Spironolactone 25 MG TAB PO SCH (08:00)
== END 2021-12-16 13:38 | disposition home or self-care (01) | DRG 682 ==
LOC: 2NO 12:22
PROVIDERS: ADMIT Internal Medicine; ATTEND Internal Medicine
DX: N17.9 Acute kidney failure, unspecified (principal); J96.01 Acute respiratory failure with hypoxia; I50.33 Acute on chronic diastolic (congestive) heart failure; Z68.41 Body mass index [BMI] 40.0-44.9, adult; E87.3 Alkalosis; F32.A Depression, unspecified; R77.8 Other specified abnormalities of plasma proteins; N20.0 Calculus of kidney; E86.9 Volume depletion, unspecified; M19.90 Unspecified osteoarthritis, unspecified site; R33.9 Retention of urine, unspecified; K59.03 Drug induced constipation; T40.2X5A Adverse effect of other opioids, initial encounter; I25.10 Atherosclerotic heart disease of native coronary artery without angina pectoris; I11.0 Hypertensive heart disease with heart failure; J44.9 Chronic obstructive pulmonary disease, unspecified; I48.0 Paroxysmal atrial fibrillation; E87.6 Hypokalemia; D64.9 Anemia, unspecified; D69.6 Thrombocytopenia, unspecified; E66.01 Morbid (severe) obesity due to excess calories; K21.9 Gastro-esophageal reflux disease without esophagitis; F17.210 Nicotine dependence, cigarettes, uncomplicated; N36.8 Other specified disorders of urethra; G89.29 Other chronic pain; F41.9 Anxiety disorder, unspecified; I95.2 Hypotension due to drugs; T46.4X5A Adverse effect of angiotensin-converting-enzyme inhibitors, initial encounter; E86.0 Dehydration; Z95.1 Presence of aortocoronary bypass graft; Z95.5 Presence of coronary angioplasty implant and graft; Z79.01 Long term (current) use of anticoagulants; Z79.899 Other long term (current) drug therapy; Z82.49 Family history of ischemic heart disease and other diseases of the circulatory system; Z88.8 Allergy status to other drugs, medicaments and biological substances; Z79.02 Long term (current) use of antithrombotics/antiplatelets; Z79.51 Long term (current) use of inhaled steroids
CPT/HCPCS: 36415; 76770; 80048; 82607; 82746; 83540; 83550; 83735; 84100; 84443; 85025; 87086; 93005; 93010; 94640; J0696; J3475; J3490; J7620

== ENCOUNTER 2022-02-28 11:53 | Outpatient (CLI) | payer OTHER ==
[2022-02-28 13:18] LABS: Hemoglobin 11.6 g/dL (12.0-15.5); Mean Corpuscular HGB CONC 31.4 g/dL (32.0-36.0); Mean Corpuscular Hemoglobin 28.5 pg (27.0-33.0); Mean Corpuscular Volume 90.7 fl (81.6-98.3); Mean Platelet Volume 12.7 fl (7.4-10.4); Platelet Count 143 10x3/uL (150-450); RBC Distribution Width 15.9 % (11.5-14.5); Red Blood Cell (RBC) Count 4.07 10x6/uL (3.90-5.03); White Blood Cell (WBC) Count 6.2 10x3/uL (3.5-10.5)
[2022-02-28 13:34] LABS: PTT 29.9 sec (22.0-33.0); Prothrombin Time 11.1 sec (9.5-12.1)
[2022-02-28 13:41] LABS: Anion Gap 16 mmol/L (10-20); BUN (Urea Nitrogen) 20 mg/dL (9.8-20.1); Calc. Creatinine Clearance 0 mL/min (70-130); Calcium 9.4 mg/dL (7.8-10.44); Carbon Dioxide 31 mmol/L (23-31); Chloride 101 mmol/L (98-107); Estimated GFR 66; Glucose 100 mg/dL (80-115); Potassium 4.2 mmol/L (3.5-5.1); Sodium 144 mmol/L (136-145)
== END 2022-02-28 11:54 | disposition home or self-care (01) ==
LOC: LABBT 11:53
PROVIDERS: ATTEND Surgery
DX: Z01.818 Encounter for other preprocedural examination (principal); M54.16 Radiculopathy, lumbar region; M48.062 Spinal stenosis, lumbar region with neurogenic claudication; Z20.822 Contact with and (suspected) exposure to COVID-19
CPT/HCPCS: 80048; 85027; 85610; 85730; 87811; 93005; 93010

== ENCOUNTER 2022-04-17 09:29 | Outpatient (CLI) | payer OTHER ==
[2022-04-17 11:37] LABS: Hemoglobin 11.6 g/dL (12.0-15.5); Mean Corpuscular HGB CONC 30.4 g/dL (32.0-36.0); Mean Corpuscular Hemoglobin 26.2 pg (27.0-33.0); Mean Corpuscular Volume 86.4 fl (81.6-98.3); Mean Platelet Volume 11.6 fl (7.4-10.4); Platelet Count 164 10x3/uL (150-450); RBC Distribution Width 15.6 % (11.5-14.5); Red Blood Cell (RBC) Count 4.42 10x6/uL (3.90-5.03); White Blood Cell (WBC) Count 8.6 10x3/uL (3.5-10.5)
[2022-04-17 11:41] LABS: PTT 27.6 sec (22.0-33.0); Prothrombin Time 10.5 sec (9.5-12.1)
[2022-04-17 11:52] LABS: Anion Gap 18 mmol/L (10-20); BUN (Urea Nitrogen) 32 mg/dL (9.8-20.1); Calc. Creatinine Clearance 0 mL/min (70-130); Calcium 8.9 mg/dL (7.8-10.44); Carbon Dioxide 32 mmol/L (23-31); Chloride 96 mmol/L (98-107); Estimated GFR 51; Glucose 76 mg/dL (80-115); Potassium 3.6 mmol/L (3.5-5.1); Sodium 142 mmol/L (136-145)
== END 2022-04-17 09:30 | disposition home or self-care (01) ==
LOC: LABBT 09:29
PROVIDERS: ATTEND Surgery
DX: Z01.812 Encounter for preprocedural laboratory examination (principal); M48.062 Spinal stenosis, lumbar region with neurogenic claudication; M54.16 Radiculopathy, lumbar region; Z20.822 Contact with and (suspected) exposure to COVID-19
CPT/HCPCS: 80048; 85027; 85610; 85730; 87811

== ENCOUNTER 2022-05-05 13:29 | Emergency (ER) | payer SELFPAY ==
[2022-05-05] MEDS ORDERED: Oxymetazoline HCl 0.05% (30 ML BOT) ONE (15:05)
[2022-05-05 15:48] LABS: #Eosinphils 0.1 thou/uL (0.0-0.7); #Monocytes 0.5 thou/uL (0.11-0.59); %Basophils 0.5 % (0.0-1.0); %Eosinophils 1.9 % (0.0-10.0); %Lymphocytes 12.6 % (21.0-51.0); Hemoglobin 10.2 g/dL (12.0-16.0); Mean Corpuscular HGB CONC 30.4 g/dL (32.0-36.0); Mean Corpuscular Hemoglobin 27.2 pg (27.0-31.0); Mean Corpuscular Volume 89.8 fl (78.0-98.0); Mean Platelet Volume 10.1 fL (7.4-10.4); Platelet Count 165 thou/uL (130-400); RBC Distribution Width 16.7 % (11.5-14.5); Red Blood Cell (RBC) Count 3.75 mill/uL (4.20-5.40); White Blood Cell (WBC) Count 7.6 thou/uL (4.8-10.8)
== END 2022-05-05 17:36 | disposition home or self-care (01) ==
LOC: ERS 13:29
DX: R04.0 Epistaxis (principal); I11.0 Hypertensive heart disease with heart failure; I50.9 Heart failure, unspecified; K21.9 Gastro-esophageal reflux disease without esophagitis; J44.9 Chronic obstructive pulmonary disease, unspecified; Z79.01 Long term (current) use of anticoagulants; F17.210 Nicotine dependence, cigarettes, uncomplicated
CPT/HCPCS: 30903; 36415; 85025

== ENCOUNTER 2022-05-31 10:12 | Inpatient (IN) | payer OTHER ==
[2022-05-31] MEDS ORDERED: Cefepime 2 GM VIAL ONE (10:45)
[2022-05-31 10:57] LABS: INR-International Normal Ratio 1.3; Prothrombin Time 16.5 sec (12.0-14.7)
[2022-05-31 10:58] LABS: PTT 37.8 sec (22.9-36.1)
[2022-05-31 11:09] LABS: #Lymphocytes 0.8 thou/uL (1.20-3.40); #Monocytes 0.9 thou/uL (0.11-0.59); #Neutrophils 11.3 thou/uL (1.40-6.50); %Basophils 0.1 % (0.0-1.0); %Eosinophils 0.3 % (0.0-10.0); %Lymphocytes 6.2 % (21.0-51.0); %Monocytes 6.9 % (0.0-10.0); %Neutrophils 86.5 % (42.0-75.0); Hemoglobin 10.6 g/dL (12.0-16.0); Mean Corpuscular HGB CONC 32.3 g/dL (32.0-36.0); Mean Corpuscular Hemoglobin 30.1 pg (27.0-31.0); Mean Corpuscular Volume 93.2 fl (78.0-98.0); Mean Platelet Volume 10.7 fL (7.4-10.4); Platelet Count 112 10x3/uL (130-400); RBC Distribution Width 18.4 % (11.5-14.5); Red Blood Cell (RBC) Count 3.52 mill/uL (4.20-5.40); White Blood Cell (WBC) Count 13.1 10x3/uL (4.8-10.8)
[2022-05-31 11:10] LABS: ALT (SGPT) 12 U/L (8-55); AST (SGOT) 18 U/L (5-34); Albumin 3.5 g/dL (3.4-4.8); Alkaline Phosphatase 96 U/L (40-110); Anion Gap 10 mmol/L (10-20); BUN (Urea Nitrogen) 19 mg/dL (9.8-20.1); Bilirubin, Total 0.5 mg/dL (0.2-1.2); Calc. Creatinine Clearance 0 mL/min (70-130); Calcium 8.6 mg/dL (7.8-10.44); Carbon Dioxide 34 mmol/L (23-31); Chloride 98 mmol/L (98-107); Estimated GFR 58; Globulin 3.2 g/dL (2.4-3.5); Glucose 129 mg/dL (80-115); Protein, Total 6.7 g/dL (5.8-8.1); Sodium 138 mmol/L (136-145)
[2022-05-31] MEDS ORDERED: VANCOMYCIN 2 GRAM/500 ML BAG 2 GM in Premix Bag 1 BAG IVPB SCH (12:00)
[2022-05-31] MEDS ORDERED: Ondansetron PF 4 MG/2 ML Vial IVP PRN (13:13)
[2022-05-31 14:08] LABS: CRP (Inflammatory) 9.63 mg/dL (= or < 0.5)
[2022-05-31] MEDS: Sodium Chloride 0.9% 1,000 ML IV SCH ×2 (15:10→22:25)
[2022-05-31] MEDS ORDERED: Lidocaine 1% w/Epinephrine 1:100K 20 ML VIAL ONE (15:56)
[2022-05-31 15:58] VITALS: BMI 43.1
[2022-05-31] MEDS ORDERED: FENTANYL 50 MCG/ML 1 ML VIAL SLOW IVP SCH (16:15)
[2022-05-31] MEDS: Clindamycin/D5W 900 MG in Premix Bag 1 BAG IVPB SCH ×2 (16:40→22:25)
[2022-05-31] MEDS: Famotidine 20 MG TAB PO SCH (20:31)
[2022-05-31 22:03] LABS: Bilirubin Negative (Negative); Blood, Urine Trace (Negative); CAUTI Indications for Culture Alt mental st,lethar; Clarity Turbid (Clear); Glucose, Urine (Dipstick) Normal (Negative); Ketone, Urine Negative (Negative); Leukocyte 500 Leu/uL (Negative); Nitrite Negative (Negative); Protein, Urine (Dipstick) 20 mg/dL (Neg-Trace); Specific Gravity, Urine 1.019 (1.002-1.036); Urobilinogen Normal mg/dL (Less than 2)
[2022-05-31 22:04] LABS: RBC/HPF 0-3 HPF (0-3)
[2022-05-31 22:05] LABS: Bacteria/HPF Rare-Few HPF (None Seen); Squamous Epithelial 0-3 HPF (0-3)
[2022-05-31 22:06] LABS: Urine Culture Reflex No No
[2022-06-01] MEDS: HYDROcodone/Acetaminophen 7.5/325 mg Tablet PO PRN ×3 (02:28→16:21)
[2022-06-01] MEDS: Clindamycin/D5W 900 MG in Premix Bag 1 BAG IVPB SCH ×2 (05:27→15:13)
[2022-06-01 06:40] LABS: #Eosinphils 0.2 thou/uL (0.0-0.7); #Lymphocytes 0.9 thou/uL (1.20-3.40); #Monocytes 0.8 thou/uL (0.11-0.59); #Neutrophils 9.5 thou/uL (1.40-6.50); %Basophils 0.1 % (0.0-1.0); %Eosinophils 1.4 % (0.0-10.0); %Lymphocytes 7.8 % (21.0-51.0); %Monocytes 7.2 % (0.0-10.0); %Neutrophils 83.4 % (42.0-75.0); Hemoglobin 9.2 g/dL (12.0-16.0); Mean Corpuscular HGB CONC 30.7 g/dL (32.0-36.0); Mean Corpuscular Hemoglobin 29.3 pg (27.0-31.0); Mean Corpuscular Volume 95.4 fl (78.0-98.0); Mean Platelet Volume 10.4 fL (7.4-10.4); Platelet Count 109 10x3/uL (130-400); RBC Distribution Width 18.1 % (11.5-14.5); Red Blood Cell (RBC) Count 3.15 mill/uL (4.20-5.40); White Blood Cell (WBC) Count 11.4 10x3/uL (4.8-10.8)
[2022-06-01] MEDS: Famotidine 20 MG TAB PO SCH ×2 (07:55→20:27)
[2022-06-01] MEDS ORDERED: Polyethylene Glycol 3350 17 GM Packet PO SCH (09:00)
[2022-06-01] MEDS: Senokot S 8.6-50 MG TAB PO SCH ×2 (10:18→20:27)
[2022-06-01] MEDS: Sodium Chloride 0.9% 1,000 ML IV SCH (10:20)
[2022-06-01] MEDS: Cyclobenzaprine 10 MG TAB PO PRN (13:10)
[2022-06-01] MEDS ORDERED: Bisacodyl 10 MG SUPP PR SCH ×2 (15:30→21:00)
[2022-06-01] MEDS ORDERED: Sodium Chloride 0.65% Nasal 44 ML BOT EA NARE PRN (17:06)
[2022-06-01] MEDS: Mometasone 200 MCG/Formoterol 5 MCG 120 PUFF INHALER INH SCH (18:26)
[2022-06-01] MEDS ORDERED: Sodium Chloride 0.9% 1,000 ML IV SCH (18:39)
[2022-06-01] MEDS ORDERED: cefTRIAXone\\ROCEPHIN 1 GM in Sodium Chloride 0.9% 100 ML IVPB SCH (18:45)
[2022-06-01] MEDS: Apixaban 5 MG TAB PO SCH (20:26)
[2022-06-01] MEDS: Atorvastatin Calcium 40 MG TAB PO SCH (20:26)
[2022-06-01] MEDS: Polyethylene Glycol 3350 17 GM Packet PO SCH (20:27)
[2022-06-01] MEDS: HYDROcodone/Acetaminophen 5/325 mg Tablet PO PRN (20:29)
[2022-06-02] MEDS: Cyclobenzaprine 10 MG TAB PO PRN ×2 (01:06→18:06)
[2022-06-02] MEDS: HYDROcodone/Acetaminophen 5/325 mg Tablet PO PRN ×3 (01:07→21:21)
[2022-06-02] MEDS: HYDROcodone/Acetaminophen 7.5/325 mg Tablet PO PRN ×3 (04:29→18:06)
[2022-06-02] MEDS: Mometasone 200 MCG/Formoterol 5 MCG 120 PUFF INHALER INH SCH ×2 (07:19→19:14)
[2022-06-02] MEDS: Polyethylene Glycol 3350 17 GM Packet PO SCH (08:16)
[2022-06-02] MEDS: Senokot S 8.6-50 MG TAB PO SCH ×2 (08:16→21:02)
[2022-06-02] MEDS: Apixaban 5 MG TAB PO SCH (08:17)
[2022-06-02] MEDS: Famotidine 20 MG TAB PO SCH (08:17)
[2022-06-02] MEDS: Amiodarone 200 MG TAB PO SCH (08:17)
[2022-06-02] MEDS ORDERED: Clopidogrel Bisulfate 75 MG TAB PO SCH (09:00)
[2022-06-02] MEDS ORDERED: Vancomycin HCl 1.75 GM in Sodium Chloride 0.9% 500 ML IVPB SCH (11:00)
[2022-06-02] MEDS: VANCOMYCIN 1.75 GM/500 ML BAG 1.75 GM in Premix Bag 1 BAG IVPB SCH ×2 (11:39→22:47)
[2022-06-02] MEDS ORDERED: Simethicone Chewable 80 MG TAB PO PRN (12:22)
[2022-06-02] MEDS ORDERED: Bisacodyl 10 MG SUPP PR SCH (14:00)
[2022-06-02] MEDS: Carvedilol 3.125 MG TAB PO SCH (17:30)
[2022-06-02] MEDS: Cefepime 2 GM in Sodium Chloride 0.9% 100 ML IVPB SCH (21:01)
[2022-06-02] MEDS: Atorvastatin Calcium 40 MG TAB PO SCH (21:02)
[2022-06-02] MEDS: Cyanocobalamin (Vitamin B-12) 1,000 MCG TAB PO SCH (21:02)
[2022-06-02] MEDS: Folic Acid 1 MG TAB PO SCH (21:02)
[2022-06-02] MEDS: Saccharomyces boulardii 250 MG CAP PO SCH (21:02)
[2022-06-02] MEDS: Morphine 4 MG/ML VIAL SLOW IVP PRN (21:57)
[2022-06-03] MEDS: HYDROcodone/Acetaminophen 7.5/325 mg Tablet PO PRN ×2 (00:22→16:33)
[2022-06-03] MEDS: Morphine 4 MG/ML VIAL SLOW IVP PRN ×3 (05:35→21:15)
[2022-06-03] MEDS: Acetaminophen 325 MG TAB PO PRN (05:36)
[2022-06-03] MEDS: Cyclobenzaprine 10 MG TAB PO PRN ×2 (05:36→21:15)
[2022-06-03] MEDS: Mometasone 200 MCG/Formoterol 5 MCG 120 PUFF INHALER INH SCH ×2 (07:05→18:52)
[2022-06-03] MEDS: Polyethylene Glycol 3350 17 GM Packet PO SCH (09:10)
[2022-06-03] MEDS: Cefepime 2 GM in Sodium Chloride 0.9% 100 ML IVPB SCH ×2 (09:10→21:16)
[2022-06-03] MEDS: Carvedilol 3.125 MG TAB PO SCH ×2 (09:11→16:33)
[2022-06-03] MEDS: Senokot S 8.6-50 MG TAB PO SCH ×2 (09:11→21:15)
[2022-06-03] MEDS: Amiodarone 200 MG TAB PO SCH (09:11)
[2022-06-03] MEDS: HYDROcodone/Acetaminophen 5/325 mg Tablet PO PRN (09:23)
[2022-06-03] MEDS: VANCOMYCIN 1.75 GM/500 ML BAG 1.75 GM in Premix Bag 1 BAG IVPB SCH ×2 (10:56→23:14)
[2022-06-03] MEDS ORDERED: Venlafaxine HCl XR 150 MG CAP PO SCH (15:00)
[2022-06-03] MEDS: Ferrous Sulfate 325 MG TAB PO SCH (16:33)
[2022-06-03] MEDS ORDERED: Electrolyte Replacement Protocol 1 EACH FS SCH (18:30)
[2022-06-03] MEDS: Atorvastatin Calcium 40 MG TAB PO SCH (21:15)
[2022-06-03] MEDS: Saccharomyces boulardii 250 MG CAP PO SCH (21:16)
[2022-06-03] MEDS: Cyanocobalamin (Vitamin B-12) 1,000 MCG TAB PO SCH (21:16)
[2022-06-03] MEDS: Baclofen 10 MG TAB PO SCH (21:16)
[2022-06-03] MEDS: Folic Acid 1 MG TAB PO SCH (21:16)
[2022-06-03 22:41] LABS: Vancomycin, Trough 19.5 ug/mL
[2022-06-04] MEDS: HYDROcodone/Acetaminophen 7.5/325 mg Tablet PO PRN ×3 (01:17→18:21)
[2022-06-04] MEDS: Mometasone 200 MCG/Formoterol 5 MCG 120 PUFF INHALER INH SCH ×2 (07:28→18:41)
[2022-06-04] MEDS: Cefepime 2 GM in Sodium Chloride 0.9% 100 ML IVPB SCH ×2 (08:34→21:31)
[2022-06-04] MEDS: Polyethylene Glycol 3350 17 GM Packet PO SCH (08:34)
[2022-06-04] MEDS: Senokot S 8.6-50 MG TAB PO SCH ×2 (08:35→21:31)
[2022-06-04] MEDS: Furosemide 40 MG TAB PO SCH ×2 (08:35→14:54)
[2022-06-04] MEDS: Amiodarone 200 MG TAB PO SCH (08:35)
[2022-06-04] MEDS: Venlafaxine HCl XR 75 MG CAP PO SCH (08:35)
[2022-06-04] MEDS: Baclofen 10 MG TAB PO SCH ×2 (08:36→21:31)
[2022-06-04] MEDS: Carvedilol 3.125 MG TAB PO SCH ×2 (08:36→17:59)
[2022-06-04 08:44] LABS: #Eosinphils 0.2 thou/uL (0.0-0.7); #Lymphocytes 0.6 thou/uL (1.20-3.40); #Monocytes 0.6 thou/uL (0.11-0.59); #Neutrophils 4.4 thou/uL (1.40-6.50); %Basophils 0.2 % (0.0-1.0); %Eosinophils 3.8 % (0.0-10.0); %Lymphocytes 10.4 % (21.0-51.0); %Neutrophils 75.6 % (42.0-75.0); Anion Gap 11 mmol/L (10-20); BUN (Urea Nitrogen) 6 mg/dL (9.8-20.1); Calc. Creatinine Clearance 162 mL/min (70-130); Calcium 8.6 mg/dL (7.8-10.44); Carbon Dioxide 29 mmol/L (23-31); Chloride 103 mmol/L (98-107); Estimated GFR 98; Glucose 120 mg/dL (80-115); Hemoglobin 8.7 g/dL (12.0-16.0); Mean Corpuscular HGB CONC 29.3 g/dL (32.0-36.0); Mean Corpuscular Hemoglobin 27.8 pg (27.0-31.0); Mean Corpuscular Volume 94.9 fl (78.0-98.0); Mean Platelet Volume 9.5 fL (7.4-10.4); Platelet Count 134 10x3/uL (130-400); Potassium 3.9 mmol/L (3.5-5.1); RBC Distribution Width 17.2 % (11.5-14.5); Red Blood Cell (RBC) Count 3.13 mill/uL (4.20-5.40); Sodium 139 mmol/L (136-145); White Blood Cell (WBC) Count 5.8 10x3/uL (4.8-10.8)
[2022-06-04] MEDS ORDERED: Venlafaxine HCl XR 150 MG CAP PO SCH (09:00)
[2022-06-04] MEDS ORDERED: Magnesium 2 GM/50 ML(in water) 2 GM in Premix Bag 1 BAG IVPB SCH (09:15)
[2022-06-04] MEDS: VANCOMYCIN 1.75 GM/500 ML BAG 1.75 GM in Premix Bag 1 BAG IVPB SCH (12:48)
[2022-06-04] MEDS: Ferrous Sulfate 325 MG TAB PO SCH (17:59)
[2022-06-04] MEDS: Folic Acid 1 MG TAB PO SCH (21:31)
[2022-06-04] MEDS: Atorvastatin Calcium 40 MG TAB PO SCH (21:31)
[2022-06-04] MEDS: Cyclobenzaprine 10 MG TAB PO PRN (21:31)
[2022-06-04] MEDS: Cyanocobalamin (Vitamin B-12) 1,000 MCG TAB PO SCH (21:31)
[2022-06-04] MEDS: Saccharomyces boulardii 250 MG CAP PO SCH (21:31)
[2022-06-05] MEDS: VANCOMYCIN 1.75 GM/500 ML BAG 1.75 GM in Premix Bag 1 BAG IVPB SCH (00:49)
[2022-06-05] MEDS: Mometasone 200 MCG/Formoterol 5 MCG 120 PUFF INHALER INH SCH ×2 (06:49→19:06)
[2022-06-05 07:53] LABS: Magnesium 2.1 mg/dL (1.6-2.6)
[2022-06-05] MEDS: Amiodarone 200 MG TAB PO SCH (08:36)
[2022-06-05] MEDS: Senokot S 8.6-50 MG TAB PO SCH ×2 (08:36→20:01)
[2022-06-05] MEDS: Venlafaxine HCl XR 75 MG CAP PO SCH (08:36)
[2022-06-05] MEDS: Furosemide 40 MG TAB PO SCH ×2 (08:36→13:12)
[2022-06-05] MEDS: Baclofen 10 MG TAB PO SCH ×2 (08:36→20:02)
[2022-06-05] MEDS: Cefepime 2 GM in Sodium Chloride 0.9% 100 ML IVPB SCH ×2 (08:37→20:01)
[2022-06-05] MEDS: Carvedilol 3.125 MG TAB PO SCH ×2 (08:37→17:06)
[2022-06-05] MEDS: HYDROcodone/Acetaminophen 5/325 mg Tablet PO PRN (08:37)
[2022-06-05] MEDS: Polyethylene Glycol 3350 17 GM Packet PO SCH (08:39)
[2022-06-05 10:35] LABS: Vancomycin, Trough 28.8 ug/mL
[2022-06-05] MEDS: Ferrous Sulfate 325 MG TAB PO SCH (17:06)
[2022-06-05] MEDS: Atorvastatin Calcium 40 MG TAB PO SCH (20:01)
[2022-06-05] MEDS: Cyanocobalamin (Vitamin B-12) 1,000 MCG TAB PO SCH (20:02)
[2022-06-05] MEDS: Saccharomyces boulardii 250 MG CAP PO SCH (20:02)
[2022-06-05] MEDS: Folic Acid 1 MG TAB PO SCH (20:02)
[2022-06-05] MEDS: Cyclobenzaprine 10 MG TAB PO PRN (20:07)
[2022-06-05] MEDS: HYDROcodone/Acetaminophen 7.5/325 mg Tablet PO PRN (20:07)
[2022-06-05] MEDS ORDERED: VANCOMYCIN 1.75 GM/500 ML BAG 1.75 GM in Premix Bag 1 BAG IVPB SCH (23:00)
[2022-06-06] MEDS: HYDROcodone/Acetaminophen 7.5/325 mg Tablet PO PRN (04:34)
[2022-06-06] MEDS: Mometasone 200 MCG/Formoterol 5 MCG 120 PUFF INHALER INH SCH ×2 (07:32→19:45)
[2022-06-06 08:23] LABS: #Eosinphils 0.2 thou/uL (0.0-0.7); #Lymphocytes 0.9 thou/uL (1.20-3.40); #Monocytes 0.5 thou/uL (0.11-0.59); #Neutrophils 3.8 thou/uL (1.40-6.50); %Basophils 0.6 % (0.0-1.0); %Eosinophils 4.4 % (0.0-10.0); %Lymphocytes 16.9 % (21.0-51.0); %Monocytes 9.3 % (0.0-10.0); %Neutrophils 68.9 % (42.0-75.0); Hemoglobin 9.1 g/dL (12.0-16.0); Mean Corpuscular Hemoglobin 29.1 pg (27.0-31.0); Mean Corpuscular Volume 93.7 fl (78.0-98.0); Mean Platelet Volume 8.8 fL (7.4-10.4); Platelet Count 193 10x3/uL (130-400); RBC Distribution Width 16.9 % (11.5-14.5); Red Blood Cell (RBC) Count 3.11 mill/uL (4.20-5.40); White Blood Cell (WBC) Count 5.4 10x3/uL (4.8-10.8)
[2022-06-06] MEDS: Venlafaxine HCl XR 75 MG CAP PO SCH (08:45)
[2022-06-06] MEDS: Polyethylene Glycol 3350 17 GM Packet PO SCH (08:45)
[2022-06-06] MEDS: Cefepime 2 GM in Sodium Chloride 0.9% 100 ML IVPB SCH (08:46)
[2022-06-06] MEDS: Amiodarone 200 MG TAB PO SCH (08:46)
[2022-06-06] MEDS: Furosemide 40 MG TAB PO SCH ×2 (08:46→14:09)
[2022-06-06] MEDS: Carvedilol 3.125 MG TAB PO SCH ×2 (08:46→17:37)
[2022-06-06] MEDS: Baclofen 10 MG TAB PO SCH ×2 (08:46→21:10)
[2022-06-06] MEDS: Senokot S 8.6-50 MG TAB PO SCH ×2 (08:46→21:09)
[2022-06-06] MEDS: Clindamycin 150 MG CAP PO SCH ×2 (11:54→17:47)
[2022-06-06] MEDS: HYDROcodone/Acetaminophen 5/325 mg Tablet PO PRN (14:09)
[2022-06-06] MEDS: Ferrous Sulfate 325 MG TAB PO SCH (17:37)
[2022-06-06] MEDS: Acetaminophen 325 MG TAB PO PRN (17:37)
[2022-06-06] MEDS: Cyclobenzaprine 10 MG TAB PO PRN (17:37)
[2022-06-06] MEDS: Folic Acid 1 MG TAB PO SCH (21:09)
[2022-06-06] MEDS: Atorvastatin Calcium 40 MG TAB PO SCH (21:09)
[2022-06-06] MEDS: Cyanocobalamin (Vitamin B-12) 1,000 MCG TAB PO SCH (21:10)
[2022-06-06] MEDS: Saccharomyces boulardii 250 MG CAP PO SCH (21:10)
[2022-06-06 21:55] VITALS: TEMP 98.3
[2022-06-07] MEDS: Clindamycin 150 MG CAP PO SCH ×3 (00:08→11:13)
[2022-06-07] MEDS: HYDROcodone/Acetaminophen 7.5/325 mg Tablet PO PRN (00:31)
[2022-06-07 08:42] VITALS: BP 149/61
[2022-06-07] MEDS: Venlafaxine HCl XR 75 MG CAP PO SCH (08:51)
[2022-06-07] MEDS: Furosemide 40 MG TAB PO SCH ×2 (08:51→14:14)
[2022-06-07] MEDS: Polyethylene Glycol 3350 17 GM Packet PO SCH (08:51)
[2022-06-07] MEDS: Amiodarone 200 MG TAB PO SCH (08:52)
[2022-06-07] MEDS: Baclofen 10 MG TAB PO SCH (08:52)
[2022-06-07] MEDS: Carvedilol 3.125 MG TAB PO SCH (08:52)
[2022-06-07] MEDS: Senokot S 8.6-50 MG TAB PO SCH (08:52)
[2022-06-07] MEDS: Mometasone 200 MCG/Formoterol 5 MCG 120 PUFF INHALER INH SCH (11:07)
[2022-06-07] MEDS ORDERED: Ondansetron PF 4 MG/2 ML Vial IVP PRN (12:48)
== END 2022-06-07 15:43 | DRG 862 ==
LOC: ERS 10:12 → T4-A 14:55
PROVIDERS: ADMIT Internal Medicine; ATTEND Internal Medicine
PROC: 0W9L0ZZ Drainage of Lower Back, Open Approach (ICD-10-PCS; principal; 2022-05-31)
DX: T81.49XA Infection following a procedure, other surgical site, initial encounter (principal); J96.01 Acute respiratory failure with hypoxia; I50.32 Chronic diastolic (congestive) heart failure; Z68.41 Body mass index [BMI] 40.0-44.9, adult; N39.0 Urinary tract infection, site not specified; Z20.822 Contact with and (suspected) exposure to COVID-19; J44.9 Chronic obstructive pulmonary disease, unspecified; I48.0 Paroxysmal atrial fibrillation; E66.01 Morbid (severe) obesity due to excess calories; Y83.8 Other surgical procedures as the cause of abnormal reaction of the patient, or of later complication, without mention of misadventure at the time of the procedure; I11.0 Hypertensive heart disease with heart failure; K21.9 Gastro-esophageal reflux disease without esophagitis; I25.10 Atherosclerotic heart disease of native coronary artery without angina pectoris; K59.00 Constipation, unspecified; Z88.8 Allergy status to other drugs, medicaments and biological substances; Z88.5 Allergy status to narcotic agent; Z79.51 Long term (current) use of inhaled steroids; Z79.899 Other long term (current) drug therapy; Z95.1 Presence of aortocoronary bypass graft; Z95.5 Presence of coronary angioplasty implant and graft
CPT/HCPCS: 36415; 71045; 80048; 80053; 80202; 81001; 82550; 82565; 83605; 83735; 84145; 85025; 85610; 85652; 85730; 86140; 87040; 87086; 87811; 93005; 94640; 96365; 96375; 97139; J0692; J0696; J2270; J2405; J3010; J3370; J3475; J3490; J7050; J7620; U0003; U0005

== ENCOUNTER 2023-03-09 18:26 | Emergency (ER) | payer OTHER ==
[2023-03-09] MEDS ORDERED: Cefepime 2 GM VIAL ONE (19:23)
[2023-03-09 19:55] LABS: #Eosinphils 0.1 thou/uL (0.0-0.7); #Monocytes 1.1 thou/uL (0.11-0.59); #Neutrophils 7.9 thou/uL (1.40-6.50); %Basophils 0.3 % (0.0-1.0); %Eosinophils 0.8 % (0.0-10.0); %Lymphocytes 14.5 % (21.0-51.0); %Monocytes 9.9 % (0.0-10.0); %Neutrophils 74.3 % (42.0-75.0); Hematocrit 37.4 % (36.0-47.0); Hemoglobin 11.8 g/dL (12.0-16.0); Mean Corpuscular HGB CONC 31.6 g/dL (32.0-36.0); Mean Corpuscular Hemoglobin 28.6 pg (27.0-31.0); Mean Corpuscular Volume 90.8 fl (78.0-98.0); Mean Platelet Volume 10.9 fL (7.4-10.4); Platelet Count 159 10x3/uL (130-400); RBC Distribution Width 15.3 % (11.5-14.5); Red Blood Cell (RBC) Count 4.12 mill/uL (4.20-5.40); White Blood Cell (WBC) Count 10.7 10x3/uL (4.8-10.8)
[2023-03-09 20:15] LABS: INR-International Normal Ratio 1.3; PTT 27.4 sec (22.9-36.1); Prothrombin Time 16.8 sec (12.0-14.7)
[2023-03-09 20:18] LABS: ALT (SGPT) 20 U/L (8-55); AST (SGOT) 17 U/L (5-34); Albumin 3.5 g/dL (3.4-4.8); Alkaline Phosphatase 96 U/L (40-110); Anion Gap 15 mmol/L (10-20); BUN (Urea Nitrogen) 12 mg/dL (9.8-20.1); Bilirubin, Total 0.5 mg/dL (0.2-1.2); Calc. Creatinine Clearance 0 mL/min (70-130); Calcium 9.3 mg/dL (7.8-10.44); Carbon Dioxide 26 mmol/L (23-31); Chloride 102 mmol/L (98-107); Estimated GFR 86; Glucose 128 mg/dL (80-115); Magnesium 2.1 mg/dL (1.6-2.6); Potassium 3.5 mmol/L (3.5-5.1); Protein, Total 6.5 g/dL (5.8-8.1); Sodium 139 mmol/L (136-145)
[2023-03-09 20:28] LABS: Troponin I 0.015 ng/mL (< 0.028)
[2023-03-09] MEDS ORDERED: Carvedilol 6.25 MG TAB PO SCH (20:45)
[2023-03-09] MEDS ORDERED: dilTIAZem 125 MG/25 ML SDV ONE (20:56)
[2023-03-09] MEDS ORDERED: dilTIAZem 25 MG/5 ML VIAL ONE (20:58)
== END 2023-03-09 23:25 | disposition home or self-care (01) ==
LOC: ERS 18:26
DX: I48.91 Unspecified atrial fibrillation (principal); L03.116 Cellulitis of left lower limb; I11.0 Hypertensive heart disease with heart failure; I50.9 Heart failure, unspecified; E78.5 Hyperlipidemia, unspecified; J44.9 Chronic obstructive pulmonary disease, unspecified; Z79.01 Long term (current) use of anticoagulants; Z79.899 Other long term (current) drug therapy
CPT/HCPCS: 36415; 71045; 80053; 83605; 83735; 84443; 84484; 85025; 85610; 85730; 87040; 93005; 94760; 96361; 96365; 96375; J0692

== ENCOUNTER 2023-07-18 08:27 | Inpatient (IN) | payer MEDICARE, OTHER ==
[2023-07-12 16:06] LABS: Hematocrit 48.4 % (34.9-44.5); Hemoglobin 15.2 g/dL (12.0-15.5); Mean Corpuscular HGB CONC 31.4 g/dL (32.0-36.0); Mean Corpuscular Hemoglobin 29.1 pg (27.0-33.0); Mean Corpuscular Volume 92.7 fl (81.6-98.3); Mean Platelet Volume 11.7 fl (7.4-10.4); Platelet Count 145 10x3/uL (150-450); RBC Distribution Width 16.5 % (11.5-14.5); Red Blood Cell (RBC) Count 5.22 10x6/uL (3.90-5.03); White Blood Cell (WBC) Count 6.6 10x3/uL (3.5-10.5)
[2023-07-12 16:29] LABS: Anion Gap 13 mmol/L (10-20); BUN (Urea Nitrogen) 31 mg/dL (9.8-20.1); Calc. Creatinine Clearance 96 mL/min (70-130); Calcium 8.9 mg/dL (7.8-10.44); Carbon Dioxide 33 mmol/L (23-31); Estimated GFR 63; Glucose 90 mg/dL (80-115)
[2023-07-12 17:02] LABS: INR-International Normal Ratio 1.1; Prothrombin Time 11.4 sec (9.5-12.1)
[2023-07-12 17:26] LABS: Chloride 101 mmol/L (98-107); Potassium 4.2 mmol/L (3.5-5.1); Sodium 143 mmol/L (136-145)
[2023-07-18] MEDS ORDERED: Ipratropium/Albuterol 3 ML NEB ONE (10:01)
[2023-07-18] MEDS ORDERED: Protamine Sulfate 50 MG/5 ML VIAL ONE ×2 (10:04→15:42)
[2023-07-18] MEDS ORDERED: Heparin 10,000 UNITS/ 10 ML VIAL ONE (10:04)
[2023-07-18] MEDS ORDERED: Heparin 25,000 units/D5W 500 ML ONE (10:04)
[2023-07-18] MEDS ORDERED: Dexmedetomidine 200 MCG/2 ML VIAL ONE (11:51)
[2023-07-18] MEDS ORDERED: Etomidate 40 MG (20 mL) VIAL ONE (11:51)
[2023-07-18] MEDS ORDERED: fentaNYL PF 100 MCG/2 ML SYRINGE ONE (11:51)
[2023-07-18] MEDS ORDERED: Midazolam HCl 2 mg/2 ml Vial ONE (12:15)
[2023-07-18] MEDS ORDERED: Rocuronium Bromide 10 MG/ML (10ML VIAL) ONE (12:25)
[2023-07-18] MEDS ORDERED: NEOSTIGMINE 3 MG/3 ML SYR 3 MG/3 ML SYRINGE ONE (12:25)
[2023-07-18] MEDS ORDERED: Albuterol HFA (OR) 200 PUFF INH ONE (12:25)
[2023-07-18] MEDS ORDERED: PHENYLEPHRINE-NS 100 MCG/ML 10 ML SYRINGE ONE (12:25)
[2023-07-18] MEDS ORDERED: Glycopyrrolate 0.2 MG/ML 5 ML SYRINGE ONE (12:25)
[2023-07-18] MEDS ORDERED: Lidocaine 1% PF 5 ML VIAL ONE (12:25)
[2023-07-18] MEDS ORDERED: Ondansetron PF 4 MG/2 ML Vial ONE (12:25)
[2023-07-18] MEDS ORDERED: Isoproterenol 0.2 MG/1 ML AMP ONE (14:38)
[2023-07-18] MEDS ORDERED: Amiodarone 150 MG/3 ML VIAL ONE ×2 (15:07→15:42)
[2023-07-18] MEDS ORDERED: SUGAMMADEX SODIUM 200 MG/2 ML VIAL ONE (16:36)
[2023-07-18] MEDS ORDERED: PROPOFOL 20 ML ONE (16:40)
[2023-07-18] MEDS ORDERED: Furosemide 40 MG (4 mL) VIAL ONE (16:54)
[2023-07-18 17:29] LABS: Actual Bicarbonate (HCO3a) 31.8 mEq/L (22-28); Base Excess (BEa) 6.3 mEq/L (-2.0 to +3.0); CO2 Tension 48.2 mmHg (35.0-45.0); Hematocrit-ABG 45 % (36.0-47.0); Hemoglobin (Hb) 15.4 g/dL (12.0-16.0); O2 Tension (PaO2), arterial 117.8 mmHg (> 80.0); Potassium - ABG Lab 3.06 mmol/L (3.70-5.30); Puncture Site LRA; pH, Arterial 7.437 (7.35-7.45)
[2023-07-18] MEDS ORDERED: Propofol 1,000 MG/100 ML VIAL IV ONE (17:36)
[2023-07-18] MEDS ORDERED: Insulin Regular 300 UNITS/3 ML VIAL SC PRN (17:39)
[2023-07-18] MEDS ORDERED: Ventilator Sedation Protocol 1 EACH FS SCH (17:39)
[2023-07-18] MEDS ORDERED: Ipratropium/Albuterol 3 ML NEB NEB PRN (17:39)
[2023-07-18] MEDS ORDERED: Acetaminophen 650 MG/20.3 ML UDCUP PO PRN (17:43)
[2023-07-18] MEDS ORDERED: Lorazepam 2 MG/ML VIAL SLOW IVP PRN (17:45)
[2023-07-18] MEDS ORDERED: DISCONTINUE PREVIOUS NARCOTIC PAIN MEDICATIONS AND BENZODIAZEPINES FS SCH (17:45)
[2023-07-18] MEDS ORDERED: Morphine 2 MG/ML VIAL SLOW IVP PRN (17:45)
[2023-07-18] MEDS ORDERED: Fentanyl BOLUS 250 ML IVPB PRN (17:45)
[2023-07-18] MEDS ORDERED: Fentanyl CADD 100 ML IV SCH (17:45)
[2023-07-18] MEDS: Propofol 1,000 MG/100 ML VIAL IV PRN (17:45)
[2023-07-18] MEDS ORDERED: Propofol BOLUS 1,000 MG/100 ML VIAL IV PRN (17:45)
[2023-07-18] MEDS ORDERED: Calcium Chloride 13.6 MEQ in Sodium Chloride 0.9% 100 ML IVPB SCH (18:30)
[2023-07-18] MEDS ORDERED: Electrolyte Replacement Protocol 1 EACH FS SCH (18:30)
[2023-07-18] MEDS ORDERED: Acetaminophen 325 MG TAB PO PRN (18:49)
[2023-07-18] MEDS ORDERED: Ondansetron PF 4 MG/2 ML Vial IVP PRN (18:49)
[2023-07-18] MEDS ORDERED: HYDROcodone/Acetaminophen 5/325 mg Tablet PO PRN (18:49)
[2023-07-18] MEDS ORDERED: Dextrose 5% in Water 1,000 ML IV PRN (19:02)
[2023-07-18] MEDS ORDERED: Dextrose 50% Abboject 50 ML SYRINGE SLOW IVP PRN (19:02)
[2023-07-18] MEDS ORDERED: Glucagon 1 MG/ML KIT IM PRN (19:02)
[2023-07-18] MEDS ORDERED: hydrALAZINE 20 MG/ML VIAL SLOW IVP PRN (19:02)
[2023-07-18] MEDS ORDERED: Famotidine/PF 20 mg/2ml Vial SLOW IVP SCH (21:00)
[2023-07-18] MEDS: Baclofen 10 MG TAB PO SCH (21:38)
[2023-07-18] MEDS: Atorvastatin Calcium 40 MG TAB PO SCH (21:38)
[2023-07-18] MEDS: Carvedilol 25 MG TAB PO SCH (21:38)
[2023-07-18] MEDS: Apixaban 5 MG TAB PO SCH (21:38)
[2023-07-18] MEDS: Sucralfate 1 GM TAB PO SCH (21:39)
[2023-07-18] MEDS: levETIRAcetam 500 MG TAB PO SCH (21:39)
[2023-07-18] MEDS ORDERED: Ketorolac Tromethamine 30 MG (1 mL) VIAL IVP PRN (21:59)
[2023-07-18] MEDS ORDERED: Albuterol 200 PUFF (6.7GM INHALER) INH PRN (22:10)
[2023-07-18] MEDS ORDERED: Nitroglycerin 0.4 MG TAB (25 Tab Bottle) SL PRN (22:14)
[2023-07-19] MEDS: Propofol 1,000 MG/100 ML VIAL IV PRN ×3 (00:20→05:29)
[2023-07-19] MEDS ORDERED: Acetaminophen 650 MG Suppository PR PRN (06:10)
[2023-07-19 06:34] LABS: #Basophils 0.1 thou/uL (0.0-0.2); #Eosinphils 0.1 thou/uL (0.0-0.7); #Monocytes 1.2 thou/uL (0.11-0.59); #Neutrophils 7.3 thou/uL (1.40-6.50); %Basophils 0.6 % (0.0-1.0); %Eosinophils 1.1 % (0.0-10.0); %Lymphocytes 10.7 % (21.0-51.0); %Neutrophils 75.4 % (42.0-75.0); Hematocrit 46.6 % (36.0-47.0); Hemoglobin 14.3 g/dL (12.0-16.0); Mean Corpuscular HGB CONC 30.7 g/dL (32.0-36.0); Mean Corpuscular Hemoglobin 28.8 pg (27.0-31.0); Mean Platelet Volume 12.5 fL (7.4-10.4); Platelet Count 148 10x3/uL (130-400); RBC Distribution Width 17.3 % (11.5-14.5); Red Blood Cell (RBC) Count 4.96 mill/uL (4.20-5.40); White Blood Cell (WBC) Count 9.6 10x3/uL (4.8-10.8)
[2023-07-19 07:35] LABS: Actual Bicarbonate (HCO3a) 36.8 mEq/L (22-28); Base Excess (BEa) 11.2 mEq/L (-2.0 to +3.0); CO2 Tension 51.2 mmHg (35.0-45.0); Calcium, Ionized (arterial) 1.05 mmol/L (1.12-1.30); Hematocrit-ABG 45 % (36.0-47.0); Hemoglobin (Hb) 15.2 g/dL (12.0-16.0); O2 Tension (PaO2), arterial 61.3 mmHg (> 80.0); Potassium - ABG Lab 3.06 mmol/L (3.70-5.30); pH, Arterial 7.475 (7.35-7.45)
[2023-07-19] MEDS: Mometasone 100 MCG HFA INHALER (RT USE) INH SCH ×2 (07:37→19:39)
[2023-07-19 07:38] LABS: Puncture Site RRA
[2023-07-19] MEDS ORDERED: DC Sedation Protocol FS ONE (08:18)
[2023-07-19] MEDS: Cefepime 1 GM in Sodium Chloride 0.9% 100 ML IVPB SCH ×2 (08:57→20:20)
[2023-07-19] MEDS ORDERED: Pantoprazole 40 MG VIAL IVP SCH (09:00)
[2023-07-19 09:08] LABS: Albumin 3.5 g/dL (3.4-4.8)
[2023-07-19 09:09] LABS: Chloride 96 mmol/L (98-107); Potassium 3.2 mmol/L (3.5-5.1); Sodium 141 mmol/L (136-145)
[2023-07-19 09:10] LABS: Calcium 8.5 mg/dL (7.8-10.44)
[2023-07-19 09:11] LABS: Globulin 3.4 g/dL (2.4-3.5); Glucose 128 mg/dL (80-115); Protein, Total 6.9 g/dL (5.8-8.1)
[2023-07-19 09:12] LABS: Anion Gap 12 mmol/L (10-20); Bilirubin, Total 0.6 mg/dL (0.2-1.2); Carbon Dioxide 36 mmol/L (23-31)
[2023-07-19 09:13] LABS: Alkaline Phosphatase 110 U/L (40-110)
[2023-07-19 09:14] LABS: Calc. Creatinine Clearance 94 mL/min (70-130); Estimated GFR 62
[2023-07-19 09:15] LABS: BUN (Urea Nitrogen) 30 mg/dL (9.8-20.1)
[2023-07-19 09:16] LABS: ALT (SGPT) 21 U/L (8-55); AST (SGOT) 73 U/L (5-34)
[2023-07-19] MEDS: Carvedilol 25 MG TAB PO SCH ×2 (10:09→20:22)
[2023-07-19] MEDS: Amiodarone 200 MG TAB PO SCH (10:10)
[2023-07-19] MEDS: Apixaban 5 MG TAB PO SCH ×2 (10:11→20:22)
[2023-07-19] MEDS: Clopidogrel Bisulfate 75 MG TAB PO SCH (10:11)
[2023-07-19] MEDS: Furosemide 40 MG TAB PO SCH ×2 (10:12→14:08)
[2023-07-19] MEDS: Potassium Chloride 20 MEQ TAB PO SCH (10:13)
[2023-07-19] MEDS: levETIRAcetam 500 MG TAB PO SCH ×2 (10:13→20:22)
[2023-07-19] MEDS: Venlafaxine HCl XR 75 MG CAP PO SCH (10:15)
[2023-07-19] MEDS: Baclofen 10 MG TAB PO SCH ×2 (10:16→20:24)
[2023-07-19] MEDS: Cyanocobalamin (Vitamin B-12) 1,000 MCG TAB PO SCH (10:16)
[2023-07-19] MEDS: Sucralfate 1 GM TAB PO SCH ×4 (10:16→20:24)
[2023-07-19] MEDS: Prenatal Vitamin 1 TAB PO SCH (10:16)
[2023-07-19] MEDS: Ipratropium/Albuterol 3 ML NEB NEB SCH ×4 (10:40→22:46)
[2023-07-19] MEDS ORDERED: Potassium Chloride 20 MEQ TAB PO SCH (12:30)
[2023-07-19] MEDS: methylPREDNISolone Sod Succ 40 MG VIAL IVP SCH ×3 (12:46→23:58)
[2023-07-19] MEDS ORDERED: Magnesium 2 GM/50 ML(in water) 2 GM in Premix 1 BAG IVPB SCH (13:00)
[2023-07-19] MEDS: Ferrous Sulfate 325 MG TAB PO SCH (17:20)
[2023-07-19] MEDS: Folic Acid 1 MG TAB PO SCH (20:24)
[2023-07-19] MEDS: Atorvastatin Calcium 40 MG TAB PO SCH (20:24)
[2023-07-20] MEDS: Ipratropium/Albuterol 3 ML NEB NEB SCH ×6 (03:09→22:39)
[2023-07-20 04:19] LABS: #Monocytes 0.5 thou/uL (0.11-0.59); #Neutrophils 11.6 thou/uL (1.40-6.50); %Basophils 0.1 % (0.0-1.0); %Monocytes 3.8 % (0.0-10.0); %Neutrophils 90.7 % (42.0-75.0); Hematocrit 44.4 % (36.0-47.0); Hemoglobin 13.5 g/dL (12.0-16.0); Mean Corpuscular HGB CONC 30.4 g/dL (32.0-36.0); Mean Corpuscular Volume 95.5 fl (78.0-98.0); Mean Platelet Volume 12.1 fL (7.4-10.4); Platelet Count 118 10x3/uL (130-400); RBC Distribution Width 16.8 % (11.5-14.5); Red Blood Cell (RBC) Count 4.65 mill/uL (4.20-5.40); White Blood Cell (WBC) Count 12.7 10x3/uL (4.8-10.8)
[2023-07-20 05:12] LABS: Albumin 3.5 g/dL (3.4-4.8); Alkaline Phosphatase 95 U/L (40-110); BUN (Urea Nitrogen) 26 mg/dL (9.8-20.1); Bilirubin, Total 0.7 mg/dL (0.2-1.2); Calc. Creatinine Clearance 100 mL/min (70-130); Calcium 8.6 mg/dL (7.8-10.44); Carbon Dioxide 29 mmol/L (23-31); Estimated GFR 66; Globulin 3.5 g/dL (2.4-3.5); Glucose 157 mg/dL (80-115)
[2023-07-20 05:13] LABS: ALT (SGPT) 20 U/L (8-55); AST (SGOT) 56 U/L (5-34)
[2023-07-20 05:23] LABS: Anion Gap 18 mmol/L (10-20); Chloride 101 mmol/L (98-107); Potassium 3.7 mmol/L (3.5-5.1); Sodium 142 mmol/L (136-145)
[2023-07-20] MEDS: Mometasone 100 MCG HFA INHALER (RT USE) INH SCH ×2 (06:03→18:55)
[2023-07-20] MEDS: methylPREDNISolone Sod Succ 40 MG VIAL IVP SCH ×2 (06:19→11:28)
[2023-07-20 06:54] LABS: Anisocytosis SLIGHT = 6-15 cells HPF (0-5); CellaVision Operator ID LAB.JMM; Elliptocytes SLIGHT = 2-5 cells HPF (0-1); Platelet Adequacy Comment Platelets Decreased; Polychromasia SLIGHT = 2-3 cells HPF (0-2)
[2023-07-20] MEDS: Potassium Chloride 20 MEQ TAB PO SCH (08:41)
[2023-07-20] MEDS: Prenatal Vitamin 1 TAB PO SCH (08:41)
[2023-07-20] MEDS: levETIRAcetam 500 MG TAB PO SCH ×2 (08:41→22:24)
[2023-07-20] MEDS: Carvedilol 25 MG TAB PO SCH ×2 (08:42→22:25)
[2023-07-20] MEDS: Venlafaxine HCl XR 75 MG CAP PO SCH (08:42)
[2023-07-20] MEDS: Cyanocobalamin (Vitamin B-12) 1,000 MCG TAB PO SCH (08:43)
[2023-07-20] MEDS: Cefepime 1 GM in Sodium Chloride 0.9% 100 ML IVPB SCH (08:43)
[2023-07-20] MEDS: Baclofen 10 MG TAB PO SCH ×2 (08:43→22:25)
[2023-07-20] MEDS: Sucralfate 1 GM TAB PO SCH ×4 (08:43→22:24)
[2023-07-20] MEDS: Apixaban 5 MG TAB PO SCH ×2 (08:43→22:24)
[2023-07-20] MEDS: Clopidogrel Bisulfate 75 MG TAB PO SCH (08:43)
[2023-07-20] MEDS: Furosemide 40 MG TAB PO SCH ×2 (08:43→14:58)
[2023-07-20] MEDS: Amiodarone 200 MG TAB PO SCH (08:43)
[2023-07-20] MEDS: Ferrous Sulfate 325 MG TAB PO SCH (16:07)
[2023-07-20] MEDS: predniSONE 20 MG TAB PO SCH (16:09)
[2023-07-20] MEDS: Folic Acid 1 MG TAB PO SCH (22:24)
[2023-07-20] MEDS: Atorvastatin Calcium 40 MG TAB PO SCH (22:26)
[2023-07-21] MEDS: Ipratropium/Albuterol 3 ML NEB NEB SCH ×5 (01:59→20:15)
[2023-07-21 05:34] LABS: #Monocytes 1.1 thou/uL (0.11-0.59); #Neutrophils 14.2 thou/uL (1.40-6.50); %Basophils 0.1 % (0.0-1.0); %Eosinophils 0.1 % (0.0-10.0); %Lymphocytes 4.9 % (21.0-51.0); %Monocytes 6.9 % (0.0-10.0); %Neutrophils 87.6 % (42.0-75.0); Hematocrit 41.8 % (36.0-47.0); Hemoglobin 12.8 g/dL (12.0-16.0); Mean Corpuscular HGB CONC 30.6 g/dL (32.0-36.0); Mean Corpuscular Hemoglobin 29.7 pg (27.0-31.0); Platelet Count 101 10x3/uL (130-400); RBC Distribution Width 16.5 % (11.5-14.5); Red Blood Cell (RBC) Count 4.31 mill/uL (4.20-5.40); White Blood Cell (WBC) Count 16.2 10x3/uL (4.8-10.8)
[2023-07-21 06:24] LABS: ALT (SGPT) 17 U/L (8-55); AST (SGOT) 44 U/L (5-34); Albumin 3.2 g/dL (3.4-4.8); Alkaline Phosphatase 92 U/L (40-110); Anion Gap 16 mmol/L (10-20); BUN (Urea Nitrogen) 33 mg/dL (9.8-20.1); Bilirubin, Total 0.4 mg/dL (0.2-1.2); Calc. Creatinine Clearance 111 mL/min (70-130); Calcium 7.9 mg/dL (7.8-10.44); Carbon Dioxide 27 mmol/L (23-31); Chloride 100 mmol/L (98-107); Estimated GFR 73; Globulin 3.4 g/dL (2.4-3.5); Glucose 117 mg/dL (80-115); Protein, Total 6.6 g/dL (5.8-8.1); Sodium 139 mmol/L (136-145)
[2023-07-21] MEDS: Venlafaxine HCl XR 75 MG CAP PO SCH (08:32)
[2023-07-21] MEDS: Clopidogrel Bisulfate 75 MG TAB PO SCH (08:32)
[2023-07-21] MEDS: Prenatal Vitamin 1 TAB PO SCH (08:32)
[2023-07-21] MEDS: Cyanocobalamin (Vitamin B-12) 1,000 MCG TAB PO SCH (08:32)
[2023-07-21] MEDS: Carvedilol 25 MG TAB PO SCH ×2 (08:32→21:23)
[2023-07-21] MEDS: Potassium Chloride 20 MEQ TAB PO SCH (08:32)
[2023-07-21] MEDS: Calcium Carbonate 600 MG TAB PO SCH (08:32)
[2023-07-21] MEDS: Amiodarone 200 MG TAB PO SCH (08:32)
[2023-07-21] MEDS: Sucralfate 1 GM TAB PO SCH ×4 (08:33→21:27)
[2023-07-21] MEDS: Baclofen 10 MG TAB PO SCH ×2 (08:33→21:27)
[2023-07-21] MEDS: Furosemide 40 MG TAB PO SCH ×2 (08:33→14:42)
[2023-07-21] MEDS: levETIRAcetam 500 MG TAB PO SCH ×2 (08:33→21:27)
[2023-07-21] MEDS: Apixaban 5 MG TAB PO SCH (08:33)
[2023-07-21] MEDS: predniSONE 20 MG TAB PO SCH ×2 (08:33→16:54)
[2023-07-21 10:44] LABS: Bacteria/HPF None Seen HPF (None Seen); Bilirubin Negative (Negative); Blood, Urine 3+ (Negative); CAUTI Indications for Culture Pelvic or flank pain; Clarity Turbid (Clear); Glucose, Urine (Dipstick) Normal (Negative); Ketone, Urine Negative (Negative); Leukocyte Negative Leu/uL (Negative); Nitrite Negative (Negative); Protein, Urine (Dipstick) 30 mg/dL (Neg-Trace); RBC/HPF Greater than 50 HPF (0-3); Specific Gravity, Urine 1.017 (1.002-1.036); Squamous Epithelial None Seen HPF (0-3); Urobilinogen Normal mg/dL (Less than 2); WBC/HPF 0-3 HPF (0-3); pH, Urine 5.5 (5.0-9.0)
[2023-07-21 11:02] LABS: Urine Culture Reflex No No
[2023-07-21] MEDS: Mometasone 100 MCG HFA INHALER (RT USE) INH SCH ×2 (11:41→20:18)
[2023-07-21] MEDS ORDERED: Iopamidol-370 76% 500 ML MDV (1 ML CHARGE) ONE (12:54)
[2023-07-21 13:03] LABS: SARS-CoV-2 NAA Rapid Test Not Detected (NotDetected)
[2023-07-21 13:51] LABS: Legionella Urinary Ag Negative (Negative); Strep pneumo Urine Ag NEGATIVE (NEGATIVE)
[2023-07-21] MEDS: Polyethylene Glycol 3350 17 GM Packet PO SCH ×3 (14:42→15:25)
[2023-07-21] MEDS: Ferrous Sulfate 325 MG TAB PO SCH (16:54)
[2023-07-21] MEDS ORDERED: Enoxaparin 120 MG/0.8 ML SYRINGE SC SCH (21:00)
[2023-07-21] MEDS: Senokot S 8.6-50 MG TAB PO SCH (21:22)
[2023-07-21] MEDS: Folic Acid 1 MG TAB PO SCH (21:24)
[2023-07-21] MEDS: Atorvastatin Calcium 40 MG TAB PO SCH (21:24)
[2023-07-21] MEDS: Lisinopril 5 MG TAB PO SCH (21:25)
[2023-07-22] MEDS: Ipratropium/Albuterol 3 ML NEB NEB SCH ×6 (00:46→19:45)
[2023-07-22 04:46] LABS: #Monocytes 0.8 thou/uL (0.11-0.59); #Neutrophils 9.8 thou/uL (1.40-6.50); %Basophils 0.1 % (0.0-1.0); %Eosinophils 0.1 % (0.0-10.0); %Lymphocytes 8.8 % (21.0-51.0); %Monocytes 6.9 % (0.0-10.0); %Neutrophils 83.8 % (42.0-75.0); Hematocrit 40.4 % (36.0-47.0); Hemoglobin 12.5 g/dL (12.0-16.0); Mean Corpuscular HGB CONC 30.9 g/dL (32.0-36.0); Mean Corpuscular Hemoglobin 29.8 pg (27.0-31.0); Mean Corpuscular Volume 96.2 fl (78.0-98.0); Mean Platelet Volume 11.9 fL (7.4-10.4); RBC Distribution Width 16.5 % (11.5-14.5); White Blood Cell (WBC) Count 11.6 10x3/uL (4.8-10.8)
[2023-07-22 05:05] LABS: Base Excess 8.1 mEq/L (-2.0 to +3.0); Calcium, Ionized (venous) 0.98 mmol/L (1.16-1.32); Chloride (VBG) 99 mmol/L (98-106); Hematocrit-VBG 40 % (36.0-47.0); Hemoglobin (Hb) 13.5 g/dL (11.7-16.1); Sodium 139 mmol/L (133-146); pH (venous) 7.466 (7.32-7.43)
[2023-07-22 05:17] LABS: ALT (SGPT) 21 U/L (8-55); AST (SGOT) 33 U/L (5-34); Albumin 3.5 g/dL (3.4-4.8); Alkaline Phosphatase 99 U/L (40-110); Anion Gap 13 mmol/L (10-20); BUN (Urea Nitrogen) 30 mg/dL (9.8-20.1); Bilirubin, Total 0.5 mg/dL (0.2-1.2); Calc. Creatinine Clearance 116 mL/min (70-130); Calcium 8.4 mg/dL (7.8-10.44); Carbon Dioxide 32 mmol/L (23-31); Chloride 99 mmol/L (98-107); Estimated GFR 77; Globulin 3.1 g/dL (2.4-3.5); Glucose 115 mg/dL (80-115); Magnesium 2.2 mg/dL (1.6-2.6); Potassium 4.3 mmol/L (3.5-5.1); Protein, Total 6.6 g/dL (5.8-8.1); Sodium 140 mmol/L (136-145)
[2023-07-22 05:44] LABS: INR-International Normal Ratio 1.2; PTT 31.3 sec (22.9-36.1); Prothrombin Time 15.7 sec (12.0-14.7)
[2023-07-22 06:07] LABS: Platelet Count 114 10x3/uL (130-400)
[2023-07-22] MEDS: Piperacillin/Tazobactam 4.5 GM in Sodium Chloride 0.9% 100 ML IVPB SCH ×3 (06:20→22:15)
[2023-07-22] MEDS: Mometasone 100 MCG HFA INHALER (RT USE) INH SCH (06:47)
[2023-07-22] MEDS ORDERED: Non-Formulary Item 1 EACH (Fluticasone/Umeclidin/Vilanter [Trelegy Ellipta 200-62.5-25] 1 IH SCH (09:00)
[2023-07-22] MEDS: Senokot S 8.6-50 MG TAB PO SCH ×2 (09:55→21:23)
[2023-07-22] MEDS: Sucralfate 1 GM TAB PO SCH ×4 (09:55→21:23)
[2023-07-22] MEDS: Lisinopril 5 MG TAB PO SCH ×2 (09:55→21:23)
[2023-07-22] MEDS: Potassium Chloride 20 MEQ TAB PO SCH (09:55)
[2023-07-22] MEDS: Prenatal Vitamin 1 TAB PO SCH (09:55)
[2023-07-22] MEDS: Calcium Carbonate 600 MG TAB PO SCH (09:55)
[2023-07-22] MEDS: levETIRAcetam 500 MG TAB PO SCH ×2 (09:55→21:23)
[2023-07-22] MEDS: Furosemide 40 MG TAB PO SCH ×2 (09:55→15:21)
[2023-07-22] MEDS: Amiodarone 200 MG TAB PO SCH (09:56)
[2023-07-22] MEDS: Carvedilol 25 MG TAB PO SCH ×2 (09:56→21:22)
[2023-07-22] MEDS: Venlafaxine HCl XR 75 MG CAP PO SCH (09:56)
[2023-07-22] MEDS: predniSONE 20 MG TAB PO SCH ×2 (09:56→17:28)
[2023-07-22] MEDS: Cyanocobalamin (Vitamin B-12) 1,000 MCG TAB PO SCH (09:56)
[2023-07-22] MEDS: Polyethylene Glycol 3350 17 GM Packet PO SCH (09:56)
[2023-07-22] MEDS: Baclofen 10 MG TAB PO SCH ×2 (09:56→21:23)
[2023-07-22] MEDS ORDERED: Enoxaparin 100 MG (1 mL) SYRINGE SC SCH (12:00)
[2023-07-22] MEDS: Ferrous Sulfate 325 MG TAB PO SCH (17:28)
[2023-07-22] MEDS: Mometasone 100 MCG/PUFF (1 INHALER) INH SCH (19:47)
[2023-07-22] MEDS: Atorvastatin Calcium 40 MG TAB PO SCH (21:21)
[2023-07-22] MEDS: Folic Acid 1 MG TAB PO SCH (21:23)
[2023-07-22] MEDS: Enoxaparin 100 MG (1 mL) SYRINGE SC SCH (21:25)
[2023-07-23] MEDS: Ipratropium/Albuterol 3 ML NEB NEB SCH ×4 (02:32→19:15)
[2023-07-23 05:15] LABS: #Monocytes 0.6 thou/uL (0.11-0.59); #Neutrophils 5.6 thou/uL (1.40-6.50); %Basophils 0.1 % (0.0-1.0); %Eosinophils 0.3 % (0.0-10.0); %Monocytes 7.8 % (0.0-10.0); %Neutrophils 77.4 % (42.0-75.0); Hematocrit 42.3 % (36.0-47.0); Mean Corpuscular HGB CONC 30.7 g/dL (32.0-36.0); Mean Corpuscular Hemoglobin 29.3 pg (27.0-31.0); Mean Corpuscular Volume 95.3 fl (78.0-98.0); Mean Platelet Volume 11.6 fL (7.4-10.4); Platelet Count 108 10x3/uL (130-400); RBC Distribution Width 15.9 % (11.5-14.5); Red Blood Cell (RBC) Count 4.44 mill/uL (4.20-5.40); White Blood Cell (WBC) Count 7.2 10x3/uL (4.8-10.8)
[2023-07-23] MEDS: Piperacillin/Tazobactam 4.5 GM in Sodium Chloride 0.9% 100 ML IVPB SCH (05:50)
[2023-07-23] MEDS: Mometasone 100 MCG/PUFF (1 INHALER) INH SCH ×2 (06:50→19:16)
[2023-07-23] MEDS: Enoxaparin 100 MG (1 mL) SYRINGE SC SCH (09:32)
[2023-07-23] MEDS: Venlafaxine HCl XR 75 MG CAP PO SCH (09:33)
[2023-07-23] MEDS: Calcium Carbonate 600 MG TAB PO SCH (09:33)
[2023-07-23] MEDS: Polyethylene Glycol 3350 17 GM Packet PO SCH (09:33)
[2023-07-23] MEDS: Prenatal Vitamin 1 TAB PO SCH (09:33)
[2023-07-23] MEDS: Carvedilol 25 MG TAB PO SCH ×2 (09:33→21:57)
[2023-07-23] MEDS: Lisinopril 5 MG TAB PO SCH (09:34)
[2023-07-23] MEDS: Amiodarone 200 MG TAB PO SCH (09:34)
[2023-07-23] MEDS: Baclofen 10 MG TAB PO SCH ×2 (09:34→21:56)
[2023-07-23] MEDS: Furosemide 40 MG TAB PO SCH ×2 (09:34→16:51)
[2023-07-23] MEDS: levETIRAcetam 500 MG TAB PO SCH ×2 (09:34→21:55)
[2023-07-23] MEDS: Senokot S 8.6-50 MG TAB PO SCH ×2 (09:35→22:20)
[2023-07-23] MEDS: Sucralfate 1 GM TAB PO SCH ×4 (09:35→22:20)
[2023-07-23] MEDS: predniSONE 20 MG TAB PO SCH ×2 (09:35→21:57)
[2023-07-23] MEDS: Potassium Chloride 20 MEQ TAB PO SCH (09:35)
[2023-07-23] MEDS: Cyanocobalamin (Vitamin B-12) 1,000 MCG TAB PO SCH (09:35)
[2023-07-23] MEDS ORDERED: hydrALAZINE 20 MG/ML VIAL SLOW IVP PRN (13:26)
[2023-07-23 14:23] VITALS: BMI 41.5
[2023-07-23] MEDS ORDERED: Insulin Regular 300 UNITS/3 ML VIAL SC PRN (15:59)
[2023-07-23] MEDS: Piperacillin/Tazobactam 3.375 GM in Sodium Chloride 0.9% 100 ML IVPB SCH ×2 (16:50→22:01)
[2023-07-23] MEDS: Ferrous Sulfate 325 MG TAB PO SCH (18:51)
[2023-07-23] MEDS ORDERED: Sodium Chloride 0.65% Nasal 44 ML BOT EA NARE PRN (20:23)
[2023-07-23] MEDS: Pregabalin 75 MG CAP PO SCH (21:55)
[2023-07-23] MEDS: Atorvastatin Calcium 40 MG TAB PO SCH (21:56)
[2023-07-23] MEDS: Apixaban 5 MG TAB PO SCH (21:56)
[2023-07-23] MEDS: Folic Acid 1 MG TAB PO SCH (21:56)
[2023-07-23] MEDS: Lisinopril 10 MG TAB PO SCH (21:58)
[2023-07-24] MEDS: Ipratropium/Albuterol 3 ML NEB NEB SCH ×4 (01:37→18:29)
[2023-07-24 03:55] LABS: #Eosinphils 0.1 thou/uL (0.0-0.7); #Monocytes 0.4 thou/uL (0.11-0.59); #Neutrophils 7.6 thou/uL (1.40-6.50); %Basophils 0.2 % (0.0-1.0); %Eosinophils 0.7 % (0.0-10.0); %Lymphocytes 9.2 % (21.0-51.0); %Monocytes 4.7 % (0.0-10.0); %Neutrophils 84.8 % (42.0-75.0); Hematocrit 38.1 % (36.0-47.0); Hemoglobin 11.9 g/dL (12.0-16.0); Mean Corpuscular HGB CONC 31.2 g/dL (32.0-36.0); Mean Corpuscular Hemoglobin 29.3 pg (27.0-31.0); Mean Corpuscular Volume 93.8 fl (78.0-98.0); Mean Platelet Volume 11.5 fL (7.4-10.4); Platelet Count 124 10x3/uL (130-400); RBC Distribution Width 15.6 % (11.5-14.5); Red Blood Cell (RBC) Count 4.06 mill/uL (4.20-5.40); White Blood Cell (WBC) Count 8.9 10x3/uL (4.8-10.8)
[2023-07-24] MEDS: Piperacillin/Tazobactam 3.375 GM in Sodium Chloride 0.9% 100 ML IVPB SCH (06:02)
[2023-07-24] MEDS: Cyanocobalamin (Vitamin B-12) 1,000 MCG TAB PO SCH (08:37)
[2023-07-24] MEDS: Prenatal Vitamin 1 TAB PO SCH (08:37)
[2023-07-24] MEDS: Calcium Carbonate 600 MG TAB PO SCH (08:37)
[2023-07-24] MEDS: Apixaban 5 MG TAB PO SCH ×2 (08:37→20:14)
[2023-07-24] MEDS: Lisinopril 10 MG TAB PO SCH ×2 (08:37→20:14)
[2023-07-24] MEDS: Amiodarone 200 MG TAB PO SCH (08:37)
[2023-07-24] MEDS: levETIRAcetam 500 MG TAB PO SCH ×2 (08:37→20:13)
[2023-07-24] MEDS: Venlafaxine HCl XR 75 MG CAP PO SCH (08:37)
[2023-07-24] MEDS: predniSONE 20 MG TAB PO SCH ×2 (08:38→20:14)
[2023-07-24] MEDS: Furosemide 40 MG TAB PO SCH ×2 (08:38→13:39)
[2023-07-24] MEDS: Carvedilol 25 MG TAB PO SCH ×2 (08:38→20:14)
[2023-07-24] MEDS: Sucralfate 1 GM TAB PO SCH ×4 (08:38→20:14)
[2023-07-24] MEDS: Pregabalin 75 MG CAP PO SCH ×2 (08:38→20:13)
[2023-07-24] MEDS: Potassium Chloride 20 MEQ TAB PO SCH (08:38)
[2023-07-24] MEDS: Baclofen 10 MG TAB PO SCH ×2 (08:38→20:13)
[2023-07-24] MEDS: Senokot S 8.6-50 MG TAB PO SCH ×2 (08:39→20:14)
[2023-07-24] MEDS: Polyethylene Glycol 3350 17 GM Packet PO SCH (08:48)
[2023-07-24] MEDS: Mometasone 100 MCG/PUFF (1 INHALER) INH SCH ×2 (08:59→18:30)
[2023-07-24] MEDS ORDERED: cefTRIAXone\\ROCEPHIN 1 GM in Sodium Chloride 0.9% 100 ML IVPB SCH ×2 (09:00→12:00)
[2023-07-24] MEDS: Ferrous Sulfate 325 MG TAB PO SCH (17:15)
[2023-07-24] MEDS: Folic Acid 1 MG TAB PO SCH (20:13)
[2023-07-24] MEDS: Atorvastatin Calcium 40 MG TAB PO SCH (20:13)
[2023-07-25] MEDS: Ipratropium/Albuterol 3 ML NEB NEB SCH ×4 (00:18→18:37)
[2023-07-25 04:38] LABS: #Monocytes 0.6 thou/uL (0.11-0.59); #Neutrophils 8.7 thou/uL (1.40-6.50); %Basophils 0.4 % (0.0-1.0); %Eosinophils 0.4 % (0.0-10.0); %Lymphocytes 9.2 % (21.0-51.0); %Monocytes 5.8 % (0.0-10.0); %Neutrophils 83.8 % (42.0-75.0); Hematocrit 35.3 % (36.0-47.0); Hemoglobin 11.1 g/dL (12.0-16.0); Mean Corpuscular HGB CONC 31.4 g/dL (32.0-36.0); Mean Corpuscular Hemoglobin 29.3 pg (27.0-31.0); Mean Corpuscular Volume 93.1 fl (78.0-98.0); Mean Platelet Volume 11.5 fL (7.4-10.4); Platelet Count 131 10x3/uL (130-400); RBC Distribution Width 15.9 % (11.5-14.5); Red Blood Cell (RBC) Count 3.79 mill/uL (4.20-5.40); White Blood Cell (WBC) Count 10.3 10x3/uL (4.8-10.8)
[2023-07-25] MEDS: Mometasone 100 MCG/PUFF (1 INHALER) INH SCH ×2 (07:46→18:50)
[2023-07-25] MEDS: Polyethylene Glycol 3350 17 GM Packet PO SCH (08:49)
[2023-07-25] MEDS: Furosemide 40 MG TAB PO SCH ×2 (08:50→13:35)
[2023-07-25] MEDS: Pregabalin 75 MG CAP PO SCH (08:50)
[2023-07-25] MEDS: Cyanocobalamin (Vitamin B-12) 1,000 MCG TAB PO SCH (08:50)
[2023-07-25] MEDS: Lisinopril 10 MG TAB PO SCH (08:50)
[2023-07-25] MEDS: Senokot S 8.6-50 MG TAB PO SCH (08:50)
[2023-07-25] MEDS: Carvedilol 25 MG TAB PO SCH (08:50)
[2023-07-25] MEDS: Amiodarone 200 MG TAB PO SCH (08:50)
[2023-07-25] MEDS: Baclofen 10 MG TAB PO SCH (08:50)
[2023-07-25] MEDS: Apixaban 5 MG TAB PO SCH (08:51)
[2023-07-25] MEDS: levETIRAcetam 500 MG TAB PO SCH (08:51)
[2023-07-25] MEDS: Prenatal Vitamin 1 TAB PO SCH (08:51)
[2023-07-25] MEDS: Venlafaxine HCl XR 75 MG CAP PO SCH (08:51)
[2023-07-25] MEDS: Sucralfate 1 GM TAB PO SCH ×3 (08:51→17:20)
[2023-07-25] MEDS: Potassium Chloride 20 MEQ TAB PO SCH (08:51)
[2023-07-25] MEDS: predniSONE 20 MG TAB PO SCH (08:51)
[2023-07-25] MEDS: Calcium Carbonate 600 MG TAB PO SCH (08:51)
[2023-07-25 12:14] VITALS: TEMP 97.6
[2023-07-25 16:39] VITALS: BP 108/51
[2023-07-25] MEDS: Ferrous Sulfate 325 MG TAB PO SCH (17:20)
[2023-07-25] MEDS ORDERED: Carvedilol 6.25 MG TAB PO SCH (21:00)
[2023-07-26] MEDS ORDERED: Clopidogrel Bisulfate 75 MG TAB PO SCH (09:00)
== END 2023-07-25 19:50 | DRG 273 ==
LOC: SDC 08:27 → CCU 16:51 → 2NO 07-20 18:08
PROVIDERS: ADMIT Internal Medicine Cardiovascular Disease; ATTEND Family Medicine
PROC: 02583ZZ Destruction of Conduction Mechanism, Percutaneous Approach (ICD-10-PCS; principal; 2023-07-18)
PROC: 4A023FZ Measurement of Cardiac Rhythm, Percutaneous Approach (ICD-10-PCS; 2023-07-18)
PROC: 4A0234Z Measurement of Cardiac Electrical Activity, Percutaneous Approach (ICD-10-PCS; 2023-07-18)
PROC: 02K83ZZ Map Conduction Mechanism, Percutaneous Approach (ICD-10-PCS; 2023-07-18)
PROC: 5A2204Z Restoration of Cardiac Rhythm, Single (ICD-10-PCS; 2023-07-18)
PROC: 4A133R1 Monitoring of Arterial Saturation, Peripheral, Percutaneous Approach (ICD-10-PCS; 2023-07-18)
PROC: 5A1935Z Respiratory Ventilation, Less than 24 Consecutive Hours (ICD-10-PCS; 2023-07-18)
PROC: 5A09457 Assistance with Respiratory Ventilation, 24-96 Consecutive Hours, Continuous Positive Airway Pressure (ICD-10-PCS; 2023-07-19)
PROC: 4A043R1 Measurement of Venous Saturation, Peripheral, Percutaneous Approach (ICD-10-PCS; 2023-07-22)
DX: I48.19 Other persistent atrial fibrillation (principal); J96.01 Acute respiratory failure with hypoxia; I50.42 Chronic combined systolic (congestive) and diastolic (congestive) heart failure; Z68.41 Body mass index [BMI] 40.0-44.9, adult; I48.92 Unspecified atrial flutter; I11.0 Hypertensive heart disease with heart failure; E66.01 Morbid (severe) obesity due to excess calories; J44.9 Chronic obstructive pulmonary disease, unspecified; F19.10 Other psychoactive substance abuse, uncomplicated; R31.9 Hematuria, unspecified; R33.9 Retention of urine, unspecified; E87.6 Hypokalemia; E04.2 Nontoxic multinodular goiter; R53.81 Other malaise; E11.40 Type 2 diabetes mellitus with diabetic neuropathy, unspecified; Z88.8 Allergy status to other drugs, medicaments and biological substances; Z79.899 Other long term (current) drug therapy; Z98.890 Other specified postprocedural states; Z87.891 Personal history of nicotine dependence; Z11.52 Encounter for screening for COVID-19
CPT/HCPCS: 0241U; 36415; 36416; 36600; 71045; 71275; 76770; 80048; 80053; 81001; 82805; 83735; 83880; 84145; 85025; 85027; 85347; 85610; 85730; 86850; 86900; 86901; 87040; 87081; 87449; 87899; 93005; 93010; 93622; 93623; 93656; 93657; 93970; 94002; 94003; 94640; 94660; 94664; C1732; C1759; C1760; C1884; C1893; C1894; J0282; J0360; J0692; J1644; J1650; J1815; J1940; J2060; J2250; J2405; J2543; J2704; J2720; J2920; J3475; J3490; J7512; J7620; Q9967

== ENCOUNTER 2023-09-02 18:56 | Inpatient (IN) | payer BC, MEDICARE ==
[2023-09-02 20:06] LABS: #Eosinphils 0.2 thou/uL (0.0-0.7); #Neutrophils 6.1 thou/uL (1.40-6.50); %Basophils 0.4 % (0.0-1.0); %Lymphocytes 15.1 % (21.0-51.0); %Monocytes 11.1 % (0.0-10.0); %Neutrophils 71.2 % (42.0-75.0); Hematocrit 39.3 % (36.0-47.0); Hemoglobin 12.5 g/dL (12.0-16.0); Mean Corpuscular HGB CONC 31.8 g/dL (32.0-36.0); Mean Corpuscular Hemoglobin 30.5 pg (27.0-31.0); Mean Corpuscular Volume 95.9 fl (78.0-98.0); Mean Platelet Volume 12.1 fL (7.4-10.4); Platelet Count 112 10x3/uL (130-400); RBC Distribution Width 17.1 % (11.5-14.5); White Blood Cell (WBC) Count 8.6 10x3/uL (4.8-10.8)
[2023-09-02 20:24] LABS: ALT (SGPT) 17 U/L (8-55); AST (SGOT) 20 U/L (5-34); Albumin 3.8 g/dL (3.4-4.8); Alkaline Phosphatase 112 U/L (40-110); Anion Gap 16 mmol/L (10-20); BUN (Urea Nitrogen) 98 mg/dL (9.8-20.1); Bilirubin, Total 0.7 mg/dL (0.2-1.2); Calc. Creatinine Clearance 0 mL/min (70-130); Calcium 9.1 mg/dL (7.8-10.44); Carbon Dioxide 34 mmol/L (23-31); Chloride 91 mmol/L (98-107); Estimated GFR 15; Globulin 3.3 g/dL (2.4-3.5); Glucose 93 mg/dL (80-115); Magnesium 2.3 mg/dL (1.6-2.6); Protein, Total 7.1 g/dL (5.8-8.1); Sodium 138 mmol/L (136-145)
[2023-09-02 20:30] LABS: Bacteria/HPF 4+ HPF (None Seen); Bilirubin Negative (Negative); Blood, Urine 2+ (Negative); CAUTI Indications for Culture Alt mental st,lethar; Clarity Turbid (Clear); Glucose, Urine (Dipstick) Normal (Negative); Ketone, Urine Negative (Negative); Leukocyte 500 Leu/uL (Negative); Nitrite 1+ (Negative); Protein, Urine (Dipstick) 20 mg/dL (Neg-Trace); RBC/HPF 21-50 HPF (0-3); Specific Gravity, Urine 1.013 (1.002-1.036); Squamous Epithelial 0-3 HPF (0-3); Urobilinogen Normal mg/dL (Less than 2); WBC/HPF Greater than 50 HPF (0-3)
[2023-09-02 20:31] LABS: Urine Culture Reflex Yes Yes
[2023-09-02 21:14] LABS: Actual Bicarbonate (HCO3a) 30.1 mEq/L (22-28); Analyzer IN Cardio ER; Base Excess (BEa) 4.3 mEq/L (-2.0 to +3.0); Calcium, Ionized (arterial) 1.07 mmol/L (1.12-1.30); Carboxyhemoglobin (COHb) 7.5 gm% (0.0-3.0); Hematocrit-ABG 38 % (36.0-47.0); Potassium - ABG Lab 3.14 mmol/L (3.70-5.30); pH, Arterial 7.398 (7.35-7.45)
[2023-09-02] MEDS ORDERED: cefTRIAXone (ROCEPHIN) 1 GM VIAL ONE (21:27)
[2023-09-02] MEDS ORDERED: Potassium Chloride 20 MEQ (100 mL) BAG ONE (21:27)
[2023-09-02 21:35] LABS: Puncture Site LRA
[2023-09-02] MEDS ORDERED: Acetaminophen 325 MG TAB PO PRN (22:03)
[2023-09-02] MEDS ORDERED: Ipratropium/Albuterol 3 ML NEB NEB PRN (22:09)
[2023-09-02] MEDS: Ipratropium/Albuterol 3 ML NEB NEB SCH (22:30)
[2023-09-02 23:26] LABS: Amphetamine Not Detected (NotDetected); Barbiturates Screen Not Detected (NotDetected); Benzodiazepine Screen Not Detected (NotDetected); Cocaine Metabolite Screen Not Detected (NotDetected); Methadone Not Detected (NotDetected); Methamphetamine Not Detected (NotDetected); Opiate Screen Not Detected (NotDetected); Oxycodone Screen Not Detected (NotDetected); Phencyclidine (PCP) Not Detected (NotDetected); THC/Cannabinoid Screen Not Detected (NotDetected); Tricyclic Screen Not Detected (NotDetected)
[2023-09-02] MEDS ORDERED: Glucagon 1 MG/ML KIT IM PRN (23:49)
[2023-09-02] MEDS ORDERED: Dextrose 5% in Water 1,000 ML IV PRN (23:49)
[2023-09-02] MEDS ORDERED: HumaLOG 300 UNITS/3 ML VIAL SC PRN ×2 (23:49)
[2023-09-02] MEDS ORDERED: Dextrose 50% Abboject 50 ML SYRINGE SLOW IVP PRN (23:49)
[2023-09-03] MEDS ORDERED: Senokot S 8.6-50 MG TAB PO PRN (00:04)
[2023-09-03] MEDS ORDERED: Albuterol 2.5 MG (3 mL) NEB NEB PRN (00:12)
[2023-09-03] MEDS: methylPREDNISolone Sod Succ 40 MG VIAL IVP SCH ×2 (00:38→05:31)
[2023-09-03] MEDS: Sodium Chloride 0.9% 1,000 ML IV SCH (00:38)
[2023-09-03 04:48] LABS: Actual Bicarbonate (HCO3v) 32.6 mEq/L (22-28); Base Excess 5.1 mEq/L (-2.0 to +3.0); Calcium, Ionized (venous) 1.02 mmol/L (1.16-1.32); Chloride (VBG) 97 mmol/L (98-106); Hematocrit-VBG 49 % (36.0-47.0); Hemoglobin (Hb) 16.5 g/dL (11.7-16.1); Potassium (VBG) 3.62 mmol/L (3.70-5.30); Sodium 141 mmol/L (133-146)
[2023-09-03 04:50] LABS: #Eosinphils 0.1 thou/uL (0.0-0.7); #Monocytes 0.2 thou/uL (0.11-0.59); #Neutrophils 6.5 thou/uL (1.40-6.50); %Basophils 0.3 % (0.0-1.0); %Eosinophils 0.7 % (0.0-10.0); %Lymphocytes 10.6 % (21.0-51.0); %Monocytes 3.1 % (0.0-10.0); Hematocrit 38.4 % (36.0-47.0); Hemoglobin 12.1 g/dL (12.0-16.0); Mean Corpuscular HGB CONC 31.5 g/dL (32.0-36.0); Mean Corpuscular Hemoglobin 30.3 pg (27.0-31.0); RBC Distribution Width 16.8 % (11.5-14.5); White Blood Cell (WBC) Count 7.7 10x3/uL (4.8-10.8)
[2023-09-03 05:13] LABS: Platelet Count 104 10x3/uL (130-400)
[2023-09-03 05:30] LABS: ALT (SGPT) 18 U/L (8-55); AST (SGOT) 18 U/L (5-34); Albumin 3.6 g/dL (3.4-4.8); Alkaline Phosphatase 103 U/L (40-110); Anion Gap 16 mmol/L (10-20); BUN (Urea Nitrogen) 85 mg/dL (9.8-20.1); Bilirubin, Total 0.3 mg/dL (0.2-1.2); Calc. Creatinine Clearance 39 mL/min (70-130); Calcium 8.7 mg/dL (7.8-10.44); Carbon Dioxide 32 mmol/L (23-31); Chloride 97 mmol/L (98-107); Estimated GFR 21; Globulin 3.2 g/dL (2.4-3.5); Glucose 141 mg/dL (80-115); Potassium 3.6 mmol/L (3.5-5.1); Protein, Total 6.8 g/dL (5.8-8.1); Sodium 141 mmol/L (136-145)
[2023-09-03] MEDS ORDERED: Ipratropium/Albuterol 3 ML NEB NEB SCH (07:00)
[2023-09-03] MEDS: Mometasone 200 MCG/Formoterol 5 MCG 120 PUFF INHALER INH SCH (07:50)
[2023-09-03] MEDS ORDERED: Furosemide 40 MG TAB PO SCH (08:00)
[2023-09-03] MEDS ORDERED: Lactated Ringer's 1,000 ML IV SCH (08:15)
[2023-09-03] MEDS ORDERED: Lisinopril 10 MG TAB PO SCH (09:00)
[2023-09-03] MEDS ORDERED: VENLAFAXINE HCL 225 MG PO SCH (09:00)
[2023-09-03] MEDS ORDERED: methylPREDNISolone Sod Succ 40 MG VIAL IVP SCH (09:00)
[2023-09-03] MEDS ORDERED: Non-Formulary Item 1 EACH (Fluticasone/Umeclidin/Vilanter [Trelegy Ellipta 200-62.5-25] 1 IH SCH (09:00)
[2023-09-03] MEDS: Clopidogrel Bisulfate 75 MG TAB PO SCH (09:10)
[2023-09-03] MEDS: Cyanocobalamin (Vitamin B-12) 1,000 MCG TAB PO SCH (09:10)
[2023-09-03] MEDS: levETIRAcetam 500 MG TAB PO SCH (09:10)
[2023-09-03] MEDS: Amiodarone 200 MG TAB PO SCH (09:10)
[2023-09-03] MEDS: Potassium Chloride 20 MEQ TAB PO SCH (09:10)
[2023-09-03] MEDS: Sucralfate 1 GM TAB PO SCH (09:10)
[2023-09-03] MEDS: Apixaban 5 MG TAB PO SCH (09:10)
[2023-09-03] MEDS: Prenatal Vitamin 1 TAB PO SCH (09:10)
[2023-09-03] MEDS: Carvedilol 25 MG TAB PO SCH (09:15)
[2023-09-03] MEDS: Ferrous Sulfate 325 MG TAB PO SCH (17:43)
[2023-09-03 19:13] LABS: Influenza A by NAA Not Detected (NotDetected); Influenza B by NAA Not Detected (NotDetected); SARS-CoV-2 NAA Rapid Test Not Detected (NotDetected)
[2023-09-03] MEDS: Budesonide 0.25 MG/2 ML NEB INH SCH (19:46)
[2023-09-03] MEDS: Atorvastatin Calcium 40 MG TAB PO SCH (21:10)
[2023-09-03] MEDS: Folic Acid 1 MG TAB PO SCH (21:10)
[2023-09-03] MEDS: cefTRIAXone\\ROCEPHIN 1 GM in Sodium Chloride 0.9% 100 ML IVPB SCH (21:11)
[2023-09-04 01:10] LABS: INR-International Normal Ratio 1.3; Prothrombin Time 15.9 sec (12.0-14.7)
[2023-09-04 01:11] LABS: PTT 32.4 sec (22.9-36.1)
[2023-09-04 05:52] LABS: #Monocytes 0.3 thou/uL (0.11-0.59); #Neutrophils 11.9 thou/uL (1.40-6.50); %Basophils 0.1 % (0.0-1.0); %Lymphocytes 5.2 % (21.0-51.0); %Monocytes 2.5 % (0.0-10.0); %Neutrophils 91.7 % (42.0-75.0); Hematocrit 40.5 % (36.0-47.0); Hemoglobin 12.5 g/dL (12.0-16.0); Mean Corpuscular HGB CONC 30.9 g/dL (32.0-36.0); Mean Corpuscular Hemoglobin 30.3 pg (27.0-31.0); Mean Corpuscular Volume 98.3 fl (78.0-98.0); Mean Platelet Volume 12.5 fL (7.4-10.4); Platelet Count 107 10x3/uL (130-400); RBC Distribution Width 16.4 % (11.5-14.5); Red Blood Cell (RBC) Count 4.12 mill/uL (4.20-5.40)
[2023-09-04 08:17] LABS: ALT (SGPT) 17 U/L (8-55); AST (SGOT) 17 U/L (5-34); Albumin 3.6 g/dL (3.4-4.8); Alkaline Phosphatase 98 U/L (40-110); BUN (Urea Nitrogen) 61 mg/dL (9.8-20.1); Bilirubin, Total 0.2 mg/dL (0.2-1.2); Calc. Creatinine Clearance 66 mL/min (70-130); Calcium 8.7 mg/dL (7.8-10.44); Carbon Dioxide 27 mmol/L (23-31); Estimated GFR 40; Globulin 3.3 g/dL (2.4-3.5); Glucose 158 mg/dL (80-115); Protein, Total 6.9 g/dL (5.8-8.1)
[2023-09-04 09:06] LABS: PT - Undiluted 15.4 sec (12.0-14.7); PTT - Undiluted 25.8 sec (22.9-36.1); PTT 1:1 Mix 27.1 sec (22.9-36.1)
[2023-09-04 09:26] LABS: Anion Gap 16 mmol/L (10-20); Chloride 104 mmol/L (98-107); Potassium 4.3 mmol/L (3.5-5.1); Sodium 143 mmol/L (136-145)
[2023-09-04 11:05] LABS: PT 1:1 37C-90 min. Incubation 13.7 sec (12.0-14.7)
[2023-09-04] MEDS ORDERED: VANC IVPB PRN (11:27)
[2023-09-04] MEDS ORDERED: [UNRECOGNIZED DRUG - OTHER] IVPB PRN (11:27)
[2023-09-04] MEDS: Vancomycin (BATCH) 2 GM in Premix 1 BAG IVPB SCH (13:33)
[2023-09-04] MEDS: Aquaphor 10 GM TUBE TOP SCH (13:35)
[2023-09-04] MEDS ORDERED: Furosemide 40 MG TAB PO SCH (14:00)
[2023-09-04] MEDS: Acetylcysteine (MUCOMYST) 200 MG/ML (10 ML VIAL) NEB SCH (18:22)
[2023-09-05 06:32] LABS: #Monocytes 0.9 thou/uL (0.11-0.59); #Neutrophils 13.1 thou/uL (1.40-6.50); %Basophils 0.1 % (0.0-1.0); %Eosinophils 0.1 % (0.0-10.0); %Lymphocytes 5.8 % (21.0-51.0); %Monocytes 5.8 % (0.0-10.0); %Neutrophils 87.7 % (42.0-75.0); Hematocrit 40.3 % (36.0-47.0); Hemoglobin 12.4 g/dL (12.0-16.0); Mean Corpuscular HGB CONC 30.8 g/dL (32.0-36.0); Mean Corpuscular Hemoglobin 30.8 pg (27.0-31.0); Mean Corpuscular Volume 100.2 fl (78.0-98.0); Mean Platelet Volume 12.5 fL (7.4-10.4); RBC Distribution Width 16.5 % (11.5-14.5); Red Blood Cell (RBC) Count 4.02 mill/uL (4.20-5.40)
[2023-09-05 07:01] LABS: Platelet Count 94 10x3/uL (130-400)
[2023-09-05 07:10] LABS: ALT (SGPT) 17 U/L (8-55); AST (SGOT) 20 U/L (5-34); Albumin 3.5 g/dL (3.4-4.8); Alkaline Phosphatase 94 U/L (40-110); Anion Gap 11 mmol/L (10-20); BUN (Urea Nitrogen) 46 mg/dL (9.8-20.1); Bilirubin, Total 0.5 mg/dL (0.2-1.2); Calc. Creatinine Clearance 92 mL/min (70-130); Calcium 9.1 mg/dL (7.8-10.44); Carbon Dioxide 31 mmol/L (23-31); Chloride 102 mmol/L (98-107); Estimated GFR 59; Globulin 3.1 g/dL (2.4-3.5); Glucose 138 mg/dL (80-115); Potassium 3.7 mmol/L (3.5-5.1); Protein, Total 6.6 g/dL (5.8-8.1); Sodium 140 mmol/L (136-145)
[2023-09-05] MEDS ORDERED: Lisinopril 5 MG TAB PO SCH (07:45)
[2023-09-05] MEDS ORDERED: Polyethylene Glycol 3350 17 GM Packet PO PRN (08:33)
[2023-09-05] MEDS ORDERED: Aquaphor 10 GM TUBE TOP SCH (09:00)
[2023-09-05] MEDS: Furosemide 40 MG TAB PO SCH (10:01)
[2023-09-05] MEDS: Lisinopril 10 MG TAB PO SCH ×2 (10:01→21:23)
[2023-09-05] MEDS: methylPREDNISolone Sod Succ 40 MG VIAL IVP SCH (10:02)
[2023-09-05] MEDS ORDERED: Vancomycin 1 GM in Premix 1 BAG IVPB SCH ×2 (10:15→11:00)
[2023-09-05 10:34] LABS: Vancomycin, Trough 11.2 ug/mL
[2023-09-05] MEDS ORDERED: Ondansetron PF 4 MG/2 ML Vial IVP PRN (10:38)
[2023-09-05] MEDS: Vancomycin (BATCH) 1.5 GM in Premix 1 BAG IVPB SCH (11:31)
[2023-09-05] MEDS: Pregabalin 75 MG CAP PO SCH ×2 (11:31→21:25)
[2023-09-06 05:34] LABS: #Monocytes 0.7 thou/uL (0.11-0.59); #Neutrophils 6.3 thou/uL (1.40-6.50); %Eosinophils 0.4 % (0.0-10.0); %Lymphocytes 15.5 % (21.0-51.0); %Monocytes 8.7 % (0.0-10.0); %Neutrophils 75.2 % (42.0-75.0); Hematocrit 36.9 % (36.0-47.0); Hemoglobin 11.4 g/dL (12.0-16.0); Mean Corpuscular HGB CONC 30.9 g/dL (32.0-36.0); Mean Corpuscular Hemoglobin 30.5 pg (27.0-31.0); Mean Corpuscular Volume 98.7 fl (78.0-98.0); Mean Platelet Volume 11.9 fL (7.4-10.4); RBC Distribution Width 16.2 % (11.5-14.5); Red Blood Cell (RBC) Count 3.74 mill/uL (4.20-5.40); White Blood Cell (WBC) Count 8.4 10x3/uL (4.8-10.8)
[2023-09-06 05:44] LABS: Platelet Count 78 10x3/uL (130-400)
[2023-09-06 05:52] LABS: ALT (SGPT) 13 U/L (8-55); AST (SGOT) 18 U/L (5-34); Albumin 3.2 g/dL (3.4-4.8); Alkaline Phosphatase 74 U/L (40-110); Anion Gap 11 mmol/L (10-20); BUN (Urea Nitrogen) 34 mg/dL (9.8-20.1); Bilirubin, Total 0.8 mg/dL (0.2-1.2); Calc. Creatinine Clearance 111 mL/min (70-130); Calcium 8.7 mg/dL (7.8-10.44); Carbon Dioxide 34 mmol/L (23-31); Chloride 103 mmol/L (98-107); Estimated GFR 74; Globulin 2.9 g/dL (2.4-3.5); Glucose 112 mg/dL (80-115); Potassium 3.8 mmol/L (3.5-5.1); Protein, Total 6.1 g/dL (5.8-8.1); Sodium 144 mmol/L (136-145)
[2023-09-06] MEDS: Vancomycin (BATCH) 1.5 GM in Premix 1 BAG IVPB SCH (12:05)
[2023-09-07 05:37] LABS: #Eosinphils 0.1 thou/uL (0.0-0.7); #Monocytes 0.7 thou/uL (0.11-0.59); #Neutrophils 6.2 thou/uL (1.40-6.50); %Basophils 0.1 % (0.0-1.0); %Eosinophils 1.2 % (0.0-10.0); %Lymphocytes 18.3 % (21.0-51.0); %Monocytes 8.4 % (0.0-10.0); %Neutrophils 71.8 % (42.0-75.0); Hematocrit 37.2 % (36.0-47.0); Hemoglobin 11.4 g/dL (12.0-16.0); Mean Corpuscular HGB CONC 30.6 g/dL (32.0-36.0); Mean Corpuscular Hemoglobin 30.2 pg (27.0-31.0); Mean Corpuscular Volume 98.7 fl (78.0-98.0); Mean Platelet Volume 12.3 fL (7.4-10.4); RBC Distribution Width 15.7 % (11.5-14.5); Red Blood Cell (RBC) Count 3.77 mill/uL (4.20-5.40); White Blood Cell (WBC) Count 8.6 10x3/uL (4.8-10.8)
[2023-09-07 05:45] LABS: Platelet Count 87 10x3/uL (130-400)
[2023-09-07 06:12] LABS: ALT (SGPT) 13 U/L (8-55); AST (SGOT) 18 U/L (5-34); Albumin 3.2 g/dL (3.4-4.8); Alkaline Phosphatase 71 U/L (40-110); Anion Gap 8 mmol/L (10-20); BUN (Urea Nitrogen) 30 mg/dL (9.8-20.1); Bilirubin, Total 0.8 mg/dL (0.2-1.2); Calc. Creatinine Clearance 107 mL/min (70-130); Calcium 8.7 mg/dL (7.8-10.44); Carbon Dioxide 37 mmol/L (23-31); Chloride 100 mmol/L (98-107); Estimated GFR 71; Globulin 2.8 g/dL (2.4-3.5); Glucose 109 mg/dL (80-115); Potassium 3.4 mmol/L (3.5-5.1); Sodium 142 mmol/L (136-145)
[2023-09-07] MEDS ORDERED: Lisinopril 10 MG TAB PO SCH (07:49)
[2023-09-07] MEDS: methylPREDNISolone Sod Succ 40 MG VIAL IVP SCH (07:53)
[2023-09-07] MEDS ORDERED: Venlafaxine HCl XR 150 MG CAP PO SCH (09:00)
[2023-09-07] MEDS: Lisinopril 20 MG TAB PO SCH (09:35)
[2023-09-07] MEDS: guaiFENesin ER 600 MG TAB PO SCH (09:35)
[2023-09-07] MEDS: Clopidogrel Bisulfate 75 MG TAB PO SCH (09:35)
[2023-09-07] MEDS: Venlafaxine HCl XR 75 MG CAP PO SCH (09:36)
[2023-09-07 10:04] LABS: Phosphorus 1.9 mg/dL (2.3-4.7)
[2023-09-07] MEDS: Potassium Chloride 20 MEQ TAB PO SCH (10:13)
[2023-09-07] MEDS: PHOS-NAK 1 PKT PACK PO SCH (15:18)
[2023-09-07 17:25] VITALS: BMI 41.8
[2023-09-07] MEDS ORDERED: hydrALAZINE 20 MG/ML VIAL SLOW IVP PRN (17:51)
[2023-09-07] MEDS: Amoxicillin/Potassium Clav 875 MG TAB PO SCH (20:22)
[2023-09-08 06:02] LABS: #Eosinphils 0.2 thou/uL (0.0-0.7); #Monocytes 0.7 thou/uL (0.11-0.59); #Neutrophils 7.5 thou/uL (1.40-6.50); %Basophils 0.3 % (0.0-1.0); %Eosinophils 1.7 % (0.0-10.0); %Lymphocytes 17.2 % (21.0-51.0); %Monocytes 6.6 % (0.0-10.0); Hematocrit 36.2 % (36.0-47.0); Hemoglobin 11.4 g/dL (12.0-16.0); Mean Corpuscular HGB CONC 31.5 g/dL (32.0-36.0); Mean Corpuscular Hemoglobin 30.7 pg (27.0-31.0); Mean Corpuscular Volume 97.6 fl (78.0-98.0); Mean Platelet Volume 12.2 fL (7.4-10.4); Platelet Count 95 10x3/uL (130-400); RBC Distribution Width 15.2 % (11.5-14.5); Red Blood Cell (RBC) Count 3.71 mill/uL (4.20-5.40); White Blood Cell (WBC) Count 10.1 10x3/uL (4.8-10.8)
[2023-09-08 06:23] LABS: Phosphorus 2.2 mg/dL (2.3-4.7)
[2023-09-08 06:25] LABS: ALT (SGPT) 16 U/L (8-55); AST (SGOT) 19 U/L (5-34); Albumin 3.4 g/dL (3.4-4.8); Alkaline Phosphatase 75 U/L (40-110); Anion Gap 13 mmol/L (10-20); BUN (Urea Nitrogen) 29 mg/dL (9.8-20.1); Bilirubin, Total 0.8 mg/dL (0.2-1.2); Calc. Creatinine Clearance 110 mL/min (70-130); Calcium 8.8 mg/dL (7.8-10.44); Carbon Dioxide 36 mmol/L (23-31); Chloride 98 mmol/L (98-107); Estimated GFR 71; Glucose 113 mg/dL (80-115); INR-International Normal Ratio 1.3; Potassium 3.5 mmol/L (3.5-5.1); Protein, Total 6.4 g/dL (5.8-8.1); Prothrombin Time 16.2 sec (12.0-14.7); Sodium 143 mmol/L (136-145)
[2023-09-08 06:26] LABS: PTT 31.6 sec (22.9-36.1)
[2023-09-08] MEDS: PHOS-NAK 1 PKT PACK PO SCH (07:53)
[2023-09-08] MEDS: predniSONE 50 MG TAB PO SCH (07:53)
[2023-09-08] MEDS: Baclofen 10 MG TAB PO SCH (07:54)
[2023-09-08] MEDS: Potassium Chloride 20 MEQ TAB PO SCH (07:55)
[2023-09-08] MEDS: Ipratropium/Albuterol 3 ML NEB NEB SCH (08:05)
[2023-09-09 08:48] VITALS: TEMP 97.6
[2023-09-09] MEDS: Potassium Chloride 20 MEQ TAB PO SCH (09:00)
[2023-09-09] MEDS: Furosemide 40 MG TAB PO SCH (09:01)
[2023-09-09] MEDS: Aspirin 81 mg Enteric Coated Tablet PO SCH (09:01)
[2023-09-09 09:03] VITALS: BP 153/85
[2023-09-09 09:36] LABS: #Eosinphils 0.2 thou/uL (0.0-0.7); #Monocytes 0.7 thou/uL (0.11-0.59); #Neutrophils 7.7 thou/uL (1.40-6.50); %Basophils 0.1 % (0.0-1.0); %Eosinophils 1.7 % (0.0-10.0); %Lymphocytes 17.4 % (21.0-51.0); %Monocytes 6.6 % (0.0-10.0); %Neutrophils 73.8 % (42.0-75.0); Hematocrit 35.4 % (36.0-47.0); Hemoglobin 11.4 g/dL (12.0-16.0); Mean Corpuscular HGB CONC 32.2 g/dL (32.0-36.0); Mean Corpuscular Hemoglobin 30.7 pg (27.0-31.0); Mean Corpuscular Volume 95.4 fl (78.0-98.0); Mean Platelet Volume 11.7 fL (7.4-10.4); Platelet Count 109 10x3/uL (130-400); RBC Distribution Width 15.5 % (11.5-14.5); Red Blood Cell (RBC) Count 3.71 mill/uL (4.20-5.40); White Blood Cell (WBC) Count 10.4 10x3/uL (4.8-10.8)
[2023-09-09 09:58] LABS: ALT (SGPT) 17 U/L (8-55); AST (SGOT) 19 U/L (5-34); Albumin 3.3 g/dL (3.4-4.8); Alkaline Phosphatase 71 U/L (40-110); Anion Gap 11 mmol/L (10-20); BUN (Urea Nitrogen) 26 mg/dL (9.8-20.1); Bilirubin, Total 0.5 mg/dL (0.2-1.2); Calc. Creatinine Clearance 105 mL/min (70-130); Calcium 8.6 mg/dL (7.8-10.44); Carbon Dioxide 37 mmol/L (23-31); Chloride 99 mmol/L (98-107); Estimated GFR 70; Globulin 2.9 g/dL (2.4-3.5); Glucose 107 mg/dL (80-115); Potassium 3.2 mmol/L (3.5-5.1); Protein, Total 6.2 g/dL (5.8-8.1); Sodium 144 mmol/L (136-145)
[2023-09-09] MEDS ORDERED: Potassium Chloride 20 MEQ TAB PO SCH (11:30)
== END 2023-09-09 15:19 | disposition home or self-care (01) | DRG 70 ==
LOC: ERS 18:56 → IMCU/EMU 21:25 → MSONC 09-07 16:21
PROVIDERS: ADMIT Family Medicine; ATTEND Family Medicine
PROC: 4A033R1 Measurement of Arterial Saturation, Peripheral, Percutaneous Approach (ICD-10-PCS; principal; 2023-09-02)
PROC: 5A09357 Assistance with Respiratory Ventilation, Less than 24 Consecutive Hours, Continuous Positive Airway Pressure (ICD-10-PCS; 2023-09-02)
DX: G93.41 Metabolic encephalopathy (principal); J96.21 Acute and chronic respiratory failure with hypoxia; J96.22 Acute and chronic respiratory failure with hypercapnia; E87.3 Alkalosis; J44.1 Chronic obstructive pulmonary disease with (acute) exacerbation; N39.0 Urinary tract infection, site not specified; I50.32 Chronic diastolic (congestive) heart failure; N17.9 Acute kidney failure, unspecified; E66.2 Morbid (severe) obesity with alveolar hypoventilation; Z68.41 Body mass index [BMI] 40.0-44.9, adult; E87.29 Other acidosis; I48.91 Unspecified atrial fibrillation; E11.9 Type 2 diabetes mellitus without complications; E87.6 Hypokalemia; D69.6 Thrombocytopenia, unspecified; I11.0 Hypertensive heart disease with heart failure; G40.909 Epilepsy, unspecified, not intractable, without status epilepticus; F41.9 Anxiety disorder, unspecified; F32.A Depression, unspecified; F17.210 Nicotine dependence, cigarettes, uncomplicated; N89.8 Other specified noninflammatory disorders of vagina; B96.20 Unspecified Escherichia coli [E. coli] as the cause of diseases classified elsewhere; T17.990A Other foreign object in respiratory tract, part unspecified in causing asphyxiation, initial encounter; E83.39 Other disorders of phosphorus metabolism; I48.0 Paroxysmal atrial fibrillation; Z88.8 Allergy status to other drugs, medicaments and biological substances; Z79.899 Other long term (current) drug therapy; Z98.890 Other specified postprocedural states; Z98.891 History of uterine scar from previous surgery; Z95.1 Presence of aortocoronary bypass graft
CPT/HCPCS: 36415; 36416; 36600; 71045; 80053; 80177; 80202; 80306; 81001; 82140; 82805; 83605; 83735; 83880; 84100; 84145; 84443; 85025; 85610; 85611; 85730; 85732; 87040; 87077; 87086; 87186; 93005; 94640; 94660; 96374; 96375; J0696; J2920; J3370; J3480; J3490; J7050; J7512; J7608; J7620; J7626